=== PATIENT | female | born 2000 | race Hispanic/Latino ===

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

== ENCOUNTER 2021-03-05 11:56 | Emergency (ER) | payer SELFPAY ==
--- OUTSIDE RECORDS SUMMARY | 2021-03-05 11:59 | XMS REPORT | Continuity of Care Document ---
:2000 Author Organization [facility] t Address [address] [place] [address] Care Team Providers Name Role Phone Pcp, Patient Does Not Have A Primary Care Physician +[id number] Jacob WOLF Attending Clinician Alfonzo Espinosa DO Attending Clinician Doctor Unassigned, Name Attending Clinician Unavailable Advance Directives Directive Decision Effective Termination Comments Source Date Date Healthcare Agents on N/A Univ ersity FileNameRelationshipHealthcare [facility] Agent Medical RelationshipCommunicationKindred Hospital At [facility] Care [phone] (Home) [email or web address] Problems Condition Condition Condition Status Onset Resolution Last Treating Co mments Source Name Details Category Date Date Treatment Clinician Date BV BV Disease Active Univers (bacterial (bacterial 6-13 it y of vaginosis[place] [facility] Vaginal Vaginal Disease Active Univers bleeding bleeding 4-16 ity of during during 00:00: [place] , , 00 Me dical antepartum antepartum Br anch Abnormal Abnormal Disease Active Overview: Un sera maternal maternal 2-06 Formattin ity of glucose glucose 00:00: g of this [place] tolerance, tolerance, 00 note Me dical antepartum antepartum might be Branch different from the original. Passed 3hr Susceptibl Susceptibl Disease Active U nivers e to e to 2-06 ity of varicella varicella 00:00: Princess s (non-immun (non-immun 00 Me dical e), e), Branch currently currently Supervisio Supervisio Disease Active U nivers n of n of 2-05 ity of high-risk high-risk 00:00: Princess hernández [facility] [place] [facility] Allergies, Adverse Reactions, Alerts This patient has no known allergies or adverse reactions. Social History Social Habit Start Date Stop Date Quantity Comments Source Exposure to Not sure [facility] SARS-CoV-2 [facility] (event) Branch Tobacco use and 2019-09-09 2019-09-09 Never used Universit y of exposure 00:00:00 00:00:00 [facility] Alcohol intake 2019-09-09 2019-09-09 Current University 00:00:00 00:00:00 non-drinker of [facility] alcohol [place] (finding) Sex Assigned At 2000 2000 Universit y of 00:00:00 00:00:00 [facility] Smoking Status Start Date Stop Date Source Never smoker [facility] Medications Ordered Filled Start Stop Current Ordering Indication Dosage Frequency Signature Comments Components Source Medication Medication Date Date Medication? Clinician (SIG) Name Name NaCl 0.9% 2020- No 1000mL at 999 Uni vers (NS) bolus 02-26-07 mL/hr, ity of infusion 23:30: 00:05 1,000 mL, Reyes as 1,000 mL 00 :00 IV Medical Infusion, [place] ONCE, 1 dose, 02/26/21 at 1830, STAT PNV 67-iron Yes [id number] 1{each} Take 1 Univers ps-folate 2-05 Each by ity of no.1-dha 00:00: mouth [place] (VITAFOL 00 daily. Medical ULTRA) 29 Branch mg iron- 1 mg-200 mg Cap Immunizations Ordered Filled Immunization Date Status Comments Sourc e Immunization Name Name Influenza Virus 2017-07-28 Completed Universit y of Vaccine Quad IM 3+ 00:00:00 [facility] Vital Signs Vital Name Observation Time Observation Value Comments Source Systolic blood 2021-02-26 23:30:00 113 mm[Hg] Univer sity of pressure [facility] Diastolic blood 2021-02-26 23:30:00 66 mm[Hg] Unive rsity of [facility] Heart rate 2021-02-26 23:30:00 92 /min Universi ty [facility] Respiratory rate 2021-02-26 23:30:00 20 /[facility] saturation in 2021-02-26 23:30:00 98 /min [facility] Arterial blood by [facility] Pulse oximetry Branch Body temperature 2021-02-26 22:20:43 37.72 Lani [facility] Body height 2021-02-26 20:35:00 152.4 cm [facility] Body weight 2021-02-26 20:35:00 90.719 kg [facility] BMI 2021-02-26 20:35:00 39.06 kg/m2 [facility] Procedures Procedure Date / Time Performing Clinician Source Performed POCT TEST 2021-02-26 22:28:00 Jovanny James [facility] URINALYSIS 2021-02-26 22:18:00 Jovanny James [facility] URINE DRUG (IMMUNOASSAY) 2021-02-26 22:18:00 Jovanny James [facility] DRUG [facility] nc SCREEN W/O REFLEX TROPONIN I 2021-02-26 21:47:00 Jovanny James [facility] FREE T4 2021-02-26 21:47:00 Jovanny James [facility] THYROID STIMULATING 2021-02-26 21:47:00 Jovanny James [facility] HORMONE [facility] COMP. METABOLIC PANEL 2021-02-26 21:47:00 Jovanny James [facility] ([id number]) [facility] ETHANOL 2021-02-26 21:47:00 Jovanny James [facility] CBC WITH DIFF 2021-02-26 21:47:00 Jovanny James [facility] N-TERMINAL PRO-BNP 2021-02-26 21:47:00 Jovanny James [facility] COVID-19 (ID NOW RAPID 2021-02-26 21:47:00 Jovanny James [facility] TESTING) [facility] ASSIGNMENT OF BENEFITS 2021-02-26 21:38:43 Doctor Unassigned, No [facility] NOTICE OF PRIVACY 2021-02-26 19:54:42 Doctor Unassigned, No [facility] PRACTICES [facility] CONSENT/REFUSAL FOR 2021-02-26 19:54:14 Doctor Unassigned, No Un [facility] DIAGNOSIS AND TREATMENT Name Medical Branch Encounters Start End Encounter Admission Attending Care Care Encounter Source Date/Time Date/Time Type Type Clinicians Facility Department ID 2021-02-26 2021-02-26 Emergency [facility] [id number] Univers 15:37:00 19:09:00 Jovanny Castro [id number] i ty of [place] 4.2.7.2.686 [facility] [id number] [address] 2019-09-09 2019-09-09 Emergency [facility] [id number] 12:47:20 13:55:00 Lacey Castro [id number] [place] [id number] [place] [id number] [facility] 2019-09-09 2019-09-09 Orders Doctor MADDY [id number] 00:00:00 00:00:00 Only Unassigned, [place] 350.1.13.[address] [place] [facility] [id number] Results Test Description Test Time Test Comments Results Result Comments Source URINE DRUG (IMMUNOASSAY) - COMPREHENSIVE DRUG SCREEN W /O REFLEX 2021-02-26 23:54:50 Test Item Value Reference Range Interpretation Comme nts AMPHET (test code = 6353702060) Negative Negative XANDER U (test code = 7162130203) Negative Negative BENZO U (test code = 8224654591) Negative Negative Cocaine Metabolite (test code = Negative Negative 5256698049) METHADONE (test code = 8962276397) Negative Negative OPIATES (test code = 4678915353) Negative Negative PCP (test code = 6984391795) Negative Negative THC (test code = 7781927960) Negative Negative MOUNIKA (test code = MOUNIKA) Urine Drug Cutoff Ranges Cocaine: ? 150 ng/mLBenzodiazepines: ? ? 200 ng/mLMethadone: ? 300 ng/mLAmphetamine: ? 1,000 ng/mLOpiates: ? 300 ng/mLCannabinoids: ?50 ng/mLPhencyclidine: ? ? ? 25 ng/mLBarbiturates: ?200 ng/mL The results are to be used only for medical (i.e., treatment) purposes. Unconfirmed screening results must not be used for non-medical purposes (e.g., employment testing, legal testing). Lab Interpretation (test code = Normal 66198-3) [facility] WITH [id number] 23:41:50 Test Item Value Reference Range Interpretation Comments WBC (test code = See_Comment H [Automated 6690-2) message] The sy stem which generated this result transmitted reference range : 4.30 - 11.10 10*3/?L. The reference range was not used to interpret this result as normal/abnormal . RBC (test code = See_Comment [Automated 789-8) message] The sy stem which generated this result transmitted reference range : 3.93 - 5.25 10*6/?L. The reference range was not used to interpret this result as normal/abnormal . HGB (test code = 15.0 g/dL 11.6-15.0 718-7) HCT (test code = 45.8 % 35.7-45.2 H 4544-3) MCV (test code = 90.5 fL 80.6-95.5 787-2) MCH (test code = 29.6 pg 25.9-32.8 785-6) MCHC (test code = 32.8 g/dL 31.6-35.1 786-4) RDW-SD (test code = 40.1 fL 39.0-49.9 40180-0) RDW-CV (test code = 12.2 % 12.0-15.5 788-0) PLT (test code = See_Comment H [Automated 777-3) message] The sy stem which generated this result transmitted reference range : 166 - 358 10*3/ ?L. The reference r chang was not used to interpret this result as normal/abnormal . MPV (test code = 8.5 fL 9.5-12.9 L 28058-5) NRBC/100 WBC (test See_Comment [Automat ed code = 8739243830) message] The system which generated this result transmitted reference range : 0.0 - 10.0 /100 WBCs. The refer ence range was not u sed to interpret th is result as normal/abnormal . NRBC x10^3 (test code <0.01 See_Comment [Auto mated = 1449940889) message] The s ystem which generated this result transmitted reference range : 10*3/?L. The reference range was not used to interpret this result as normal/abnormal . GRAN MAT (NEUT) % 61.1 % (test code = 770-8) IMM GRAN % (test code 0.50 % = 5610635962) LYMPH % (test code = 34.0 % 736-9) MONO % (test code = 3.8 % 5905-5) EOS % (test code = 0.3 % 713-8) BASO % (test code = 0.3 % 706-2) GRAN MAT x10^3(ANC) 6.98 10*3/uL 1.88-7.09 (test code = 2738460863) IMM GRAN x10^3 (test 0.06 10*3/uL 0.00-0.06 code = 2896461062) LYMPH x10^3 (test code 3.89 10*3/uL 1.32-3.29 H = 731-0) MONO x10^3 (test code 0.44 10*3/uL 0.33-0.92 = 742-7) EOS x10^3 (test code = 0.03 10*3/uL 0.03-0.39 711-2) BASO x10^3 (test code 0.04 10*3/uL 0.01-0.07 = 704-7) MIRANDA (test code = Present See_Comment A [Auto mated 7797-4) message] The sy stem which generated this result transmitted reference range : (none). The reference range was not used to interpret this result as normal/abnormal . REACT LYMPHS (test Rare code = 7751016251) Lab Interpretation Abnormal (test code = 16740-0) [facility]21[facility]36 Test Item Value Reference Range Interpretation Comments APPEARANCE (test code = Hazy Clear A 6810312008) COLOR (test code = Yellow Yellow 0432065257) PH (test code = 4.8-8.0 8108617041) SP GRAVITY (test code = 1.003-1.030 4151196148) GLU U QUAL (test code = Normal Normal 5721927677) BLOOD (test code = 3+ Negative A 5128872805) KETONES (test code = 20 mg/dL Negative A 4660142914) PROTEIN (test code = Negative Negative 2887-8) UROBILIN (test code = Normal Normal 3681437467) BILIRUBIN (test code = Negative Negative 6833141297) NITRITE (test code = Negative Negative 2086224773) LEUK ERICA (test code = Negative Negative 6829715197) RBC/HPF (test code = See_Comment H [Autom ated message] 3514997142) The system [employer] generated this result transmitted ref erence range: 0 - 3 HP F. The reference range was not used to int erpret this result as normal/abnormal . WBC/HPF (test code = See_Comment H [Autom ated message] 3199831749) The system [employer] generated this result transmitted ref erence range: 0 - 5 HP F. The reference range was not used to int erpret this result as normal/abnormal . 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 The refe rence range was not u sed to interpret this result as normal/abnor mal. Lab Interpretation (test Normal code = 01234-7) [facility] [id number] 22:28:43 Test Item Value Reference Range Interpretation Comments FREE T4 (test code = See_Comment [Autom ated message] 8925369401) The system [employer] generated this result transmitted ref erence range: 0.78 - 2 .20 ng/dL:. The ref erence range was not u sed to interpret this result as normal/abnor mal. Lab Interpretation (test Normal code = 49107-3) [facility] [id number] 22:28:00 Test Item Value Reference Range Interpretation Comments POCT PREG (test code = 1605) negative On board controls acceptable with present C Line (test code = 3574) POCT PREG LOT # (test code = 3575) [id number] POCT PREG TEST DATE (test code = 3576) Lab Interpretation (test code = Normal 38741-0) [facility] CenterTROP[facility]IN [id number] 22:23:40 Test Item Value Reference Interpretation Comments Range TROPONIN I (test <0.012 See_Comment [Automated code = 1311705187) message] The system which generated this result transmitted reference range : <=0.034 ng/mL. The reference range was not used to interpret this result as normal/abnormal . MOUNIKA (test code = Reference (Normal) MOUNIKA) Range (defined by the 99th percentile reference limit): <= 0.034 ng/mL Note: Cardiac troponin begins to rise 3-4 hours after the onset of ischemia. Repeat in 4-6 hours if the sample was drawn within 3-4 hours of the onset of the symptom and found normal. Diagnosis of myocardial injury is made with acute changes in cTn concentrations with at least one serial sample above the 99th percentile upper reference limit (URL), taken together with the patient's clinical presentation. Biotin has been reported to cause a negative bias, interpret results relative to patient's use of biotin. Lab Interpretation Normal (test code = 03600-8) [facility]-TERMINAL [id number] 22:20:42 Test Item Value Reference Range Interpretation Comments NT-proBNP (test code 71 pg/mL See_Comment [Autom ated = 2786145118) message] The system which generated this result transmitted reference range : <=125. The reference range was not used to interpret this result as normal/abnormal . MOUNIKA (test code = MOUNIKA) Biotin has been reported to cause a negative bias, interpret results relative to patient's use of biotin. Lab Interpretation Normal (test code = 11973-8) [facility]. METABOLIC PANEL (24609)2021-02-26 22:20:16 Test Item Value Reference Range Interpretation Comments NA (test code = 139 mmol/L 135-145 1516273373) K (test code = 3.8 mmol/L 3.5-5.0 6742762588) CL (test code = 102 mmol/L 98-108 5852223782) CO2 TOTAL (test code = 28 mmol/L 23-31 5873366063) AGAP (test code = 2-16 3489150663) BUN (test code = 11 mg/dL 7-23 3491830846) GLUCOSE (test code = 93 mg/dL 70-110 7791401164) CREATININE (test code = 0.63 mg/dL 0.50-1.04 6284455047) TOTAL BILI (test code = 0.5 mg/dL 0.1-1.6 8295217330) CALCIUM (test code = 9.6 mg/dL 8.6-10.6 8575900821) T PROTEIN (test code = 8.8 g/dL 6.3-8.2 H 6781193527) ALBUMIN (test code = 4.7 g/dL 3.5-5.0 8265126024) ALK PHOS (test code = 84 U/L 34-122 9883264169) ALTv (test code = 20 U/L 5-35 1742-6) AST(SGOT) (test code = 26 U/L 13-40 6410968939) eGFR (test code = mL/min/1.73m2 3431170418) MOUNIKA (test code = MOUNIKA) Association of Glomerular Filtration Rate (GFR) and Staging of Kidney Disease* + --+ --+ ------+| GFR (mL/min/1.73 m2) ?| With Kidney Damage ?| ?Without Kidney Damage+ --------+ --------+ +| ?>90 ?| ?Stage one ?| ? Normal ?+ ---+ ---+ -------+| ?60-89 ?| ?Stage two ?| ? Decreased GFR ? + --+ --+ ------+| ?30-59 ?| ?Stage three ?| ? Stage three ? + --+ --+ ------+| ?15-29 ?| ?Stage four ? | ? Stage four ?+ ---+ ---+ -------+| ?<15 (or dialysis) ? ?| ?Stage five ? | ? Stage five ?+ ---+ ---+ -------+ *Each stage assumes the associated GFR level has been in effect for at least three months. ?Stages 1 to 5, with or without kidney disease, indicate chronic kidney disease. Notes: Determination of stages one and two (with eGFR >59mL/min/1.73 m2) requires estimation of kidney damage for at least three months as defined by structural or functional abnormalities of the kidney, manifested by either:Pathological abnormalities or Markers of kidney damage (including abnormalities in the composition of the blood or urine or abnormalities in imaging tests). Lab Interpretation Abnormal (test code = 49114-1) [facility] (ID NOW RAPID TESTING)2021-02-26 22:14:21 Test Item Value Reference Range Interpretation Comments SARS-CoV-2 Rapid ID NOW Not Detected Not Detected (test code = 15610-3) MOUNIKA (test code = MOUNIKA) ID NOW COVID-19 Assay is an isothermal nucleic acid amplification test intended for the qualitative detection of nucleic acid from SARS-CoV-2 viral RNA in nasopharyngeal (CHIEF DEVELOPMENT OFFICER) specimens. It is used under Emergency Use Authorization (EUA) by FDA. The limit of detection (LOD) of the assay is 125 Genome Equivalents/mL. A positive result is indicative of the presence of SARS-CoV-2 RNA. ?Clinical correlation with patient history and other diagnostic information is necessary to determine patient infection status. A negative (Not Detected) result does not preclude SARS-CoV-2 infection. In patients with clinical symptoms and other tests that are consistent with SARS-CoV-2 infection, negative results should be treated as presumptive negative and a new specimen should be tested with alternative PCR molecular test. Invalid: Please collect a new specimen for repeat patient testing if clinically indicated. Lab Interpretation Normal (test code = 89415-7) [facility]"
[2021-03-05] MEDS ORDERED: IBUPROFEN 400 MG TAB ONE (13:13)
--- NOTE | 2021-03-05 13:19 | RAD REPORT ---
EXAM DESCRIPTION: RAD - Chest Pa And Lat (2 Views) - 03/05/2021 12:56 pm CLINICAL HISTORY: CHEST PAIN COMPARISON: January 2012 TECHNIQUE: Frontal and lateral views of the chest were obtained. FINDINGS: The lungs are significantly underinflated compared to the prior study. This accentuates th e baseline interstitial pattern. No peripheral mass or consolidation. True, significant failure or vo lume overload are doubtful. Accentuated vasculature and lung markings can be explained by the low luigi g volumes and overlying breast tissue density. Heart size is normal and central vasculature is within normal limits. No pleural effusion or pneu mothorax seen. No acute bony finding noted. No aortic abnormality. IMPRESSION: No acute cardiopulmonary process.
--- NOTE | 2021-03-05 14:10 | EDPHYS ---
Physician Documentation [facility] Name: Taylor Monterroso Age: 21 yrs Sex: Female : 2000 Arrival Date: 03/05/2021 Time: 11:56 Bed 11 Private MD: ED Physician Sergey Addison HPI: 03/05 13:01 This 21 yrs old Female presents to ER via Ambulatory with complaints of Chest jr8 Pain. 13:01 Onset: The symptoms/episode began/occurred gradually, 10 day(s) ago. Associated signs jr8 and symptoms: The patient has no apparent associated signs or symptoms. Modifying factors: The patient symptoms are alleviated by nothing, the patient symptoms are aggravated by movement. The patient has not experienced similar symptoms in the past. The patient has been recently seen by a physician:. This is a 21-year-old female who presented to the emergency room for continued chest pain for the past 10 days. Stated that she was seen in [place] without acute findings. Patient states that the chest pain is between a sharp and pressure-like sensation to the left upper chest. Worse with palpation and movement. Denies trauma. Denies radiation of pain. Has had some mild nausea. Denies any other symptoms at this time.. [employer] LE[employer]ER: 12:31 LMP N/A - control method kg Historical: - Allergies: 12:31 No Known Allergies; kg - Home Meds: 12:31 None [Active]; kg - PMHx: 12:31 None; kg - PSHx: 12:31 section; kg - Immunization history:: Adult Immunizations not up to date, Client reports having NOT received the Covid vaccine. - Social history:: Smoking status: Patient denies any tobacco usage or history of. ROS: 13:01 Constitutional: Negative for fever, chills, and weight loss, Eyes: Negative for injury, jr8 pain, redness, and discharge, ENT: Negative for injury, pain, and discharge, Neck: Negative for injury, pain, and swelling, Respiratory: Negative for shortness of breath, cough, wheezing, and pleuritic chest pain, Back: Negative for injury and pain, MS/Extremity: Negative for injury and deformity, Skin: Negative for injury, rash, and discoloration, Neuro: Negative for headache, weakness, numbness, tingling, and seizure. 13:01 Cardiovascular: Positive for chest pain, Negative for edema, orthopnea, palpitations, paroxysmal nocturnal dyspnea. 13:01 Abdomen/GI: Positive for nausea, Negative for abdominal pain, vomiting, diarrhea. Exam: 13:01 Constitutional: This is a well developed, well nourished patient who is awake, alert, jr8 and in no acute distress. ENT: Nares patent. No nasal discharge, no septal abnormalities noted. Tympanic membranes are normal and external auditory canals are clear. Oropharynx with no redness, swelling, or masses, exudates, or evidence of obstruction, uvula midline. Mucous membranes moist. Neck: Trachea midline, no thyromegaly or masses palpated, and no cervical lymphadenopathy. Supple, full range of motion without nuchal rigidity, or vertebral point tenderness. No Meningismus. Cardiovascular: Regular rate and rhythm with a normal S1 and S2. No gallops, murmurs, or rubs. Normal PMI, no JVD. No pulse deficits. Respiratory: Lungs have equal breath sounds bilaterally, clear to auscultation and percussion. No rales, rhonchi or wheezes noted. No increased work of breathing, no retractions or nasal flaring. Abdomen/GI: Soft, non-tender, with normal bowel sounds. No distension or tympany. No guarding or rebound. No evidence of tenderness throughout. Back: No spinal tenderness. No costovertebral tenderness. Full range of motion. Skin: Warm, dry with normal turgor. Normal color with no rashes, no lesions, and no evidence of cellulitis. MS/ Extremity: Pulses equal, no cyanosis. Neurovascular intact. Full, normal range of motion. Neuro: Awake and alert, GCS 15, oriented to person, place, time, and situation. Cranial nerves II-XII grossly intact. Motor strength 5/5 in all extremities. Sensory grossly intact. 13:01 Chest/axilla: Inspection: normal, Palpation: tenderness, that is moderate, of the anterior aspect of left upper chest, that totally reproduces the patient's complaints, Axilla: are normal, Breasts: are normal, no tenderness to palpation. Vital Signs: 12:29 BP 117 / 73; Pulse 89; Resp 18; Temp 99.6(O); Pulse Ox 99% on R/A; Weight 90.72 kg (R); kg Height 4 ft. 11 in. (149.86 cm) (R); Pain 6/10; 12:29 Body Mass Index 40.39 (90.72 kg, 149.86 cm) kg MDM: 12:37 Patient medically screened. jr8 14:09 Differential diagnosis: Costochondritis, and normal EKG, ischemic chest pain, jr8 pericarditis, GERD, intercostal pain, muscle strain, Covid, pneumonia. Data reviewed: vital signs, nurses notes, lab test result(s), EKG, radiologic studies, plain films. Data interpreted: Pulse oximetry: on room air is 99 %. Interpretation: normal. Counseling: I had a detailed discussion with the patient and/or guardian regarding: the historical points, exam findings, and any diagnostic results supporting the discharge/admit diagnosis, lab results, radiology results, the need for outpatient follow up, a family practitioner, to return to the emergency department if symptoms worsen or persist or if there are any questions or concerns that arise at home. Response to treatment: the patient's symptoms have markedly improved after treatment. 03/05 14:07 Order name: SARS-COV-2 RT PCR; Complete Time: 14:08 EDMS 03/05 12:34 Order name: EKG - Nurse/Tech; Complete Time: 12:46 kg 03/05 12:38 Order name: XRAY Chest Pa And Lat (2 Views); Complete Time: 13:21 jr8 Administered Medications: 12:46 Drug: Ibuprofen 800 mg Route: PO; kg Disposition: 15:21 Co-signature as Attending Physician, Sergey Addison MD I agree with the assessment and rn plan of care. Attestation: The patient's history, exam findings, diagnostics, and a summary of any interventions or procedures was reviewed in detail with Bravo JACQUES. Disposition Summary: 03/05/21 14:09 Discharge Ordered Location: Home jr8 Problem: new jr8 Symptoms: have improved jr8 Condition: Stable jr8 Diagnosis - Costochondritis jr8 Followup: jr8 - With: Private Physician - When: 2 - 3 days - Reason: Recheck today's complaints, Continuance of care, Re-evaluation by your physician Discharge Instructions: - Discharge Summary Sheet jr8 - Costochondritis jr8 Forms: - Medication Reconciliation Form jr8 - Thank You Letter jr8 - Antibiotic Education jr8 - Prescription Opioid Use jr8 Prescriptions: - Ibuprofen 800 mg Oral Tablet - take 1 tablet by ORAL route every 12 hours As needed take with food; 20 tablet; jr8 Refills: 0, Product Selection Permitted Signatures: Dispatcher [employer] EDMS Sergey Addison MD MD rn Roszak, Josh, PA PA jr8 Velma Sherwood RN RN kg Corrections: (The following items were deleted from the chart) 12:32 12:31 PSHx: None; kg kg 13:02 12:35 CORONAVIRUS+MR.LAB.BRZ ordered. EDWY EDMS 13:03 13:01 Chest/axilla: Inspection: normal, Palpation: tenderness, that is moderate, of the jr8 anterior aspect of left upper chest, Axilla: are normal, Breasts: are normal, no tenderness to palpation, jr8
--- NOTE | 2021-03-05 14:10 | ER ---
Nurse's Notes [facility] Name: Taylor Monterroso Age: 21 yrs Sex: Female : 2000 Arrival Date: 03/05/2021 Time: 11:56 Bed 11 Private MD: Diagnosis: Costochondritis Presentation: 03/05 12:29 Chief complaint: Patient states: Chest pain x 10 days and fatigue. Pt stated that she kg went to [facility] 02/26 and was checked out and swabbed and told nothing was wrong. Coronavirus screen: Vaccine status: Patient reports being unvaccinated. fatigue, muscle pain, Client presents with at least one sign or symptom that may indicate coronavirus-19. Standard/surgical mask placed on the client. Provider contacted for isolation considerations. The client reports previous COVID testing was negative. Date of collection: February 26, 2021. Ebola Screen: Patient negative for fever greater than or equal to 101.5 degrees Fahrenheit, and additional compatible Ebola Virus Disease symptoms Patient denies exposure to infectious person. Patient denies travel to an Ebola-affected area in the 21 days before illness onset. Initial Sepsis Screen: Does the patient meet any 2 criteria? No. Patient's initial sepsis screen is negative. Does the patient have a suspected source of infection? No. Patient's initial sepsis screen is negative. Risk Assessment: Do you want to hurt yourself or someone else? Patient reports no desire to harm self or others. Onset of symptoms was February 23, 2021. 12:29 Method Of Arrival: Ambulatory kg 12:29 Acuity: RITA 4 kg Triage Assessment: 12:31 General: Appears in no apparent distress. Behavior is calm, cooperative, appropriate kg for age, quiet. Pain: Complains of pain in chest Pain currently is 6 out of 10 on a pain scale. at worst was 9 out of 10 on a pain scale. Quality of pain is described as heavy, tingling. Cardiovascular: Reports chest pain, fatigue. PCU RN: 12:31 LMP N/A - control method kg Historical: - Allergies: 12:31 No Known Allergies; kg - Home Meds: 12:31 None [Active]; kg - PMHx: 12:31 None; kg - PSHx: 12:31 section; kg - Immunization history:: Adult Immunizations not up to date, Client reports having NOT received the Covid vaccine. - Social history:: Smoking status: Patient denies any tobacco usage or history of. Screenin:33 Abuse screen: Denies threats or abuse. Denies injuries from another. Nutritional kg screening: No deficits noted. Tuberculosis screening: No symptoms or risk factors identified. Fall Risk None identified. Vital Signs: 12:29 BP 117 / 73; Pulse 89; Resp 18; Temp 99.6(O); Pulse Ox 99% on R/A; Weight 90.72 kg (R); kg Height 4 ft. 11 in. (149.86 cm) (R); Pain 6/10; 12:29 Body Mass Index 40.39 (90.72 kg, 149.86 cm) kg ED Course: 11:56 Patient arrived in ED. as 12:07 Bravo Boles PA is PHCP. jr8 12:07 Sergey Addison MD is Attending Physician. jr8 12:31 Triage completed. kg 12:31 Arm band placed on right wrist. kg 12:33 Patient has correct armband on for positive identification. kg 12:33 Patient maintains SpO2 saturation greater than 95% on room air. kg 12:55 XRAY Chest Pa And Lat (2 Views) In Process Unspecified. EDMS 14:44 No provider procedures requiring assistance completed. Patient did not have IV access ch5 during this emergency room visit. Administered Medications: 12:46 Drug: Ibuprofen 800 mg Route: PO; kg Outcome: 14:09 Discharge ordered by . jr8 14:44 Discharged to home ambulatory. ch5 14:44 Condition: stable 14:44 Discharge instructions given to patient, Prescriptions given X 1. 14:44 Patient left the ED. ch5 Signatures: Dispatcher [employer] EDMS Griselda Espinal as Bravo Boles PA PA jr8 Velma Sherwood RN RN kg Thong Hall RN RN ch5 Corrections: (The following items were deleted from the chart) 12:32 12:31 PSHx: None; kg kg 13:02 12:46 CORONAVIRUS+ drawn and sent. kg EDMS
[2021-03-05 15:00] VITALS: BP 117/73; TEMP 99.6; O2SAT 99
--- NOTE | 2021-03-06 10:07 | EKG ---
Test Date: 2021-03-05 Test Time: 12:43:51 Car Wash Attendant Automatic: MAXIMILIANO MEASUREMENT RESULTS: Intervals: Rate: 88 UT: 134 QRSD: 92 QT: 356 QTc: 430 [place]: P: 65 UT: 134 QRS: 81 T: 63 INTERPRETIVE STATEMENTS: Normal sinus rhythm Normal ECG No previous ECG available for comparison Electronically Signed On 03-06-21 10:04:49 CDT by Víctor Prajapati
== END 2021-03-05 14:44 | disposition home or self-care (01) ==
LOC: ER 11:56
DX: M94.0 Chondrocostal junction syndrome [Tietze] (principal); Z20.822 Contact with and (suspected) exposure to COVID-19
CPT/HCPCS: 71046; 93005; 99284; U0003

== ENCOUNTER 2022-01-12 19:22 | Emergency (ER) | payer SELFPAY ==
--- OUTSIDE RECORDS SUMMARY | 2022-01-12 19:26 | XMS REPORT | Continuity of Care Document ---
:2000 Author Organization [facility] t Address [address] [place] [address] Dr. [address] [place] [address] Care Team Providers Name Role Phone Pcp, Patient Does Not Have A Primary Care Physician [id number] Jacob WOLF Attending Clinician Lab, Fam Pob I Attending Clinician Unavailable Kassi GALLO Attending Clinician Alfonzo Espinosa DO Attending Clinician Doctor Unassigned, Name Attending Clinician Unavailable Payers Payer Name Policy Type Policy Number Effective Date Expiration Date S [facility] [id number] 2011 00:00:00 Problems Condition Condition Condition Status Onset Resolution Last Treating Co mments Source Name Details Category Date Date Treatment Clinician Date BV BV Disease Active Univers (bacterial (bacterial 6-13 it y of vaginosis[place] [facility] Vaginal Vaginal Disease Active Univers bleeding bleeding 4-16 ity of during during 00:00: [place] , , 00 Me dical antepartum antepartum Br anch Abnormal Abnormal Disease Active Overview: Un sera maternal maternal 2-06 Formattin ity of glucose glucose 00:00: g of this [place] tolerance, tolerance, 00 note Me dical antepartum antepartum might be Branch different from the original. Passed 3hr Susceptibl Susceptibl Disease Active U nivers e to e to 2-06 ity of varicella [place] (non-immun (non-immun 00 Me dical e), e), Branch currently currently Supervisio Supervisio Disease Active U nivers n of n of 2-05 it[place] of high-risk high[place] 00 [facility] Allergies, Adverse Reactions, Alerts Allergy Allergy Status Severity Reaction(s) Onset Inactive Treating Comm ents Source Name Type Date Date Clinician NO KNOWN Drug Active Univers ALLERGIE Class ity of S [facility] Social History Social Habit Start Date Stop Date Quantity Comments Source Exposure to Not sure [facility]-CoV-2 [facility] (event) [place] Tobacco use and 2019-09-09 2019-09-09 Never used Universit y of exposure 00:00:00 00:00:00 [facility] Alcohol intake 2019-09-09 2019-09-09 Current University 00:00:00 00:00:00 non-drinker of [facility] alcohol [place] (finding) Sex Assigned At 2000 2000 Universit y of 00:00:00 00:00:00 [facility] Smoking Status Start Date Stop Date Source Never smoker [facility] Medications Ordered Filled Start Stop Current Ordering Indication Dosage Frequency Signature Comments Components Source Medication Medication Date Date Medication? Clinician (SIG) Name Name NaCl 0.9% 2020- No 1000mL at 999 Uni vers (NS) bolus 02-26 09-07 mL/hr, ity of infusion 23:30: 00:05 1,000 mL, [place] as 1,000 mL 00 :00 IV Medical Infusion, [place] ONCE, 1 dose, 02/26/21 at 1830, STAT NaCl 0.9% 2020- No 1000mL at 999 Uni vers (NS) bolus 02-26 09-07 mL/hr, ity of infusion 23:30: 00:05 1,000 mL, [place] as 1,000 mL 00 :00 IV Medical Infusion, [place] ONCE, 1 dose, 02/26/21 at 1830, STAT maalox:diph 2019- No 15mL 15 mL, Uni vers enhydrAMINE 09-08 Oral, ity of :lidocaine 18:00: 18:00 ONCE, 1 [place] as 2 % viscous 00 :00 dose, [place] Med ical 1:1:1 09/09/19 at [place] (FIRST-MOUT 1300, JATINDER HWASH BLM) oral suspension 15 mL ibuprofen 2019- No 600mg 600 mg, Uni vers (IBU) 3-19 03-19 Oral, ity of tablet 600 18:00: 18:11 ONCE, 1 [place] as mg 00 :00 dose, [facility] 09/09/19 at Branch 1300, JATINDER PNV 67-iron 2017-0 Yes [id number] 1{each} Take 1 Univers ps-folate 2-05 Each by ity of no.1-dha 00:00: mouth [place] (VITAFOL 00 daily. Medical ULTRA) 29 Branch mg iron- 1 mg-200 mg Cap PNV 67-iron 0 Yes [id number] 1{each} Take 1 Univers ps-folate 2-05 Each by ity of no.1-dha 00:00: mouth [place] (VITAFOL 00 daily. Medical ULTRA) 29 Branch mg iron- 1 mg-200 mg Cap PNV 67-iron 2017-0 Yes [id number] 1{each} Take 1 Univers ps-folate 2-05 Each by ity of no.1-dha 00:00: mouth [place] (VITAFOL 00 daily. Medical ULTRA) 29 Branch mg iron- 1 mg-200 mg Cap PNV 67-iron 0 Yes [id number] 1{each} Take 1 Univers ps-folate 2-05 Each by ity of no.1-dha 00:00: mouth [place] (VITAFOL 00 daily. Medical ULTRA) 29 Branch mg iron- 1 mg-200 mg Cap PNV 67-iron 0 Yes [id number] 1{each} Take 1 Univers ps-folate 2-05 Each by ity of no.1-dha 00:00: mouth [place] (VITAFOL 00 daily. Medical ULTRA) 29 Branch mg iron- 1 mg-200 mg Cap PNV 67-iron 0 Yes [id number] 1{each} Take 1 Univers ps-folate 2-05 Each by ity of no.1-dha 00:00: mouth [place] (VITAFOL 00 daily. Medical ULTRA) 29 Branch mg iron- 1 mg-200 mg Cap Immunizations Ordered Filled Immunization Date Status Comments [facility] e Immunization Name Name Influenza Virus 2017-07-28 Completed Universit y of Vaccine Quad IM 3+ 00:00:00 [facility] Influenza Virus 2017-07-28 Completed Universit y of Vaccine Quad IM 3+ 00:00:00 [facility] Influenza Virus 2017-07-28 Completed Universit y of Vaccine Quad IM 3+ 00:00:00 [facility] Influenza Virus 2017-07-28 Completed Universit y of Vaccine Quad IM 3+ 00:00:00 [facility] Branch Influenza Virus 2017-07-28 Completed Universit y of Vaccine Quad IM 3+ 00:00:00 [facility] Branch Influenza Virus 2017-07-28 Completed Universit y of Vaccine Quad IM 3+ 00:00:00 [facility] Vital Signs Vital Name Observation Time Observation Value Comments Source Systolic blood 2021-02-26 23:30:00 113 mm[Hg] Univer sity of pressure [facility] Branch Diastolic blood 2021-02-26 23:30:00 66 mm[Hg] Unive rsity of pressure [facility] Branch Heart rate 2021-02-26 23:30:00 92 /min Universi ty of [facility] Respiratory rate 2021-02-26 23:30:00 20 /min Univ ersity of [facility] Oxygen saturation in 2021-02-26 23:30:00 98 /min University of Arterial blood by [place] [facility] tia Pulse oximetry Branch Body temperature 2021-02-26 22:20:43 37.72 Lani Univ ersity of [facility] Branch Systolic blood 2021-02-26 20:35:00 125 mm[Hg] Univer sity of pressure [facility] Branch Diastolic blood 2021-02-26 20:35:00 72 mm[Hg] Unive rsity of pressure [facility] Heart rate 2021-02-26 20:35:00 83 /min Universi ty of [facility] Body temperature 2021-02-26 20:35:00 37.67 Lani Univ ersity of [facility] Branch Respiratory rate 2021-02-26 20:35:00 16 /min Univ ersity of [facility] Branch Oxygen saturation in 2021-02-26 20:35:00 97 /min University of Arterial blood by [place] [facility] tia Pulse oximetry Branch Body height 2021-02-26 20:35:00 152.4 cm Universi ty of [facility] Body weight 2021-02-26 20:35:00 90.719 kg Universi ty of [facility] BMI 2021-02-26 20:35:00 39.06 kg/m2 Universi ty of [facility] Systolic blood 2019-09-09 18:27:36 123 mm[Hg] Univer sity of pressure [facility] Branch Diastolic blood 2019-09-09 18:27:36 75 mm[Hg] Unive rsity of pressure [place] [facility] Heart rate 2019-09-09 18:27:36 100 /min Universi ty of [place] [facility] Respiratory rate 2019-09-09 18:27:36 17 /min Univ ersity of [place] [facility] Body temperature 2019-09-09 17:45:00 37.5 Lani Univ ersity of [place] [facility] Body height 2019-09-09 17:45:00 134.6 cm Universi ty of [place] [facility] Body weight 2019-09-09 17:45:00 91.173 kg Universi ty of [place] [facility] BMI 2019-09-09 17:45:00 50.31 kg/m2 Universi ty of [facility] Oxygen saturation in 2019-09-09 17:45:00 97 /min University of Arterial blood by [facility] Pulse oximetry Branch Systolic blood 2019-09-09 18:27:36 123 mm[Hg] Univer sity of pressure [place] [facility] [place] Diastolic blood 2019-09-09 18:27:36 75 mm[Hg] Unive rsity of pressure [place] [facility] [place] Heart rate 2019-09-09 18:27:36 100 /min Universi ty of [place] [facility] Respiratory rate 2019-09-09 18:27:36 17 /min Univ ersity of [place] [facility] [place] Body temperature 2019-09-09 17:45:00 37.5 Lani Univ ersity of [place] [facility] [place] Body height 2019-09-09 17:45:00 134.6 cm Universi ty of [place] [facility] [place] Body weight 2019-09-09 17:45:00 91.173 kg Universi ty of [place] [facility] [place] BMI 2019-09-09 17:45:00 50.31 kg/m2 Universi ty of [place] [facility] [place] Oxygen saturation in 2019-09-09 17:45:00 97 /min University of Arterial blood by [facility] Pulse oximetry Branch Procedures Procedure Date / Time Performing Clinician Source Performed POCT TEST 2021-02-26 22:28:00 Jovanny James [facility] URINALYSIS 2021-02-26 22:18:00 Jovanny James o f [facility] URINE DRUG (IMMUNOASSAY) 2021-02-26 22:18:00 Jovanny James [facility] SCREEN W/O REFLEX FREE T4 2021-02-26 21:47:00 Jovanny James [place] o f [facility] THYROID STIMULATING 2021-02-26 21:47:00 Jovanny James [facility] ty of [place] HORMONE [facility] Branch COMP. METABOLIC PANEL 2021-02-26 21:47:00 Jovanny James [facility] ([id number]) Medical Branch ETHANOL 2021-02-26 21:47:00 Jovanny James [facility] CBC WITH DIFF 2021-02-26 21:47:00 Jovanny James [facility] N-TERMINAL PRO-BNP 2021-02-26 21:47:00 Jovanny James [facility] y [facility] COVID-19 (ID NOW RAPID 2021-02-26 21:47:00 Jovanny James [facility] TESTING) Medical [place] TROPONIN I 2021-02-26 21:47:00 Jovanny James [facility] ASSIGNMENT OF BENEFITS 2021-02-26 21:38:43 Doctor Unassigned, No [facility] NOTICE OF PRIVACY 2021-02-26 19:54:42 Doctor Unassigned, No [facility] PRACTICES Name [facility] CONSENT/REFUSAL FOR 2021-02-26 19:54:14 Doctor Unassigned, [facility] CONSENT/REFUSAL FOR 2019-09-09 17:31:33 Doctor Unassigned, No [facility] Encounters Start End Encounter Admission Attending Care Care Encounter Source Date/Time Date/Time Type Type Clinicians Facility Department ID 2021-04-23 Emergency [facility] [id number] Univers 20:39:49 ity of [facility] 2021-04-19 Emergency [facility] [id number] [facility] 2021-02-26 2021-02-26 Emergency Jacob [facility] [id number] Univers 15:37:00 19:09:00 Jovanny Castro 350.1.13.10 i ty [place] 4.2.[address] [facility] [id number] [facility] 084 Branch 2020-01-03 2020-01-03 Laboratory Lab, Adc Fam Pob I [facility] 1.2. [id number] Univers 09:47:45 09:58:36 Only Katheryn Solitario Shannon [id number] ity of [place] 4.2.7.2.686 [facility] [id number] Pa dical formerly [facility] [address] [place] [address] 2020-01-03 2020-01-03 Outpatient R [facility] [id number] Univers 09:40:00 09:40:00 [id number] ity [facility] 2020-01-03 2020-01-03 Outpatient R [facility] [id number] Univers 09:40:00 09:40:00 ity [facility] 2019-09-09 2019-09-09 Emergency [facility] [id number] [facility] 12:47:20 13:55:00 Lacey Castro [id number] ity [facility] 4.2.7.[address] [facility] [id number] [address] 2019-09-09 2019-09-09 Emergency [facility] [id number] 12:47:20 13:55:00 Lacey Castro 350.1.13.10 [place] 4.2.7.2.686 [place] [id number] [facility] 2019-09-09 2019-09-09 Orders Doctor CASTAÑEDA [id number] Univers 00:00:00 00:00:00 Only Unassigned, [place] 350.1.13.10 ity of [place] [facility] 4.2.7.2.686 Reyes as [id number] [facility] 009 [place] 2019-09-09 2019-09-09 Orders Doctor CASTAÑEDA [id number] 00:00:00 00:00:00 Only Unassigned, [place] 350.1.13.10 [place] [facility] 4.2.7.2.686 [id number] Results Test Description Test Time Test Comments Results Result Comments Source URINE DRUG (IMMUNOASSAY) - COMPREHENSIVE DRUG SCREEN W /O REFLEX 2021-02-26 23:54:50 Test Item Value Reference Range Interpretation Comme nts AMPHET (test code = 8306287393) Negative Negative XANDER U (test code = 4806582598) Negative Negative BENZO U (test code = 3091449297) Negative Negative Cocaine Metabolite (test code = Negative Negative 0009787750) METHADONE (test code = 4923958856) Negative Negative OPIATES (test code = 4703330882) Negative Negative PCP (test code = 1188881288) Negative Negative THC (test code = 3656955799) Negative Negative MOUNIKA (test code = MOUNIKA) [...] testing). Lab Interpretation (test code = Normal 02835-3) [facility] - COMPREHENSIVE DRUG SCREEN W/O [id number] 23:54:50 Test Item Value Reference Range Interpretation Comments AMPHET (test code = Negative Negative 5311330259) XANDER U (test code = Negative Negative 6919556019) BENZO U (test code = Negative Negative 1611404862) Cocaine Metabolite (test Negative Negative code = 0395577639) METHADONE (test code = Negative Negative 7598452716) OPIATES (test code = Negative Negative 5187205879) PCP (test code = Negative Negative 1785791104) THC (test code = Negative Negative 4143681660) MOUNIKA (test code = MOUNIKA) Urine Drug [...] employment testing, legal testing). Lab Interpretation (test Normal code = 38214-1) [facility] WITH [id number] 23:41:50 Test Item Value Reference Range Interpretation [...] RDW-SD (test code = 40.1 fL 39.0-49.9 31211-9) RDW-CV (test code = 12.2 % 12.0-15.5 788-0) PLT (test code = See_Comment H [Automated 777-3) message] The sy stem which generated this result transmitted reference range : 166 - 358 10*3/ ?L. The reference r chang was not used to interpret this result as normal/abnormal . MPV (test code = 8.5 fL 9.5-12.9 L 31317-8) NRBC/100 WBC (test See_Comment [Automat ed code = 9475701280) message] The system which generated this result transmitted reference range : 0.0 - 10.0 /100 WBCs. The refer ence range was not u sed to interpret th is result as normal/abnormal . NRBC x10^3 (test code <0.01 See_Comment [Auto mated = 9484784207) message] The s ystem which generated this result transmitted reference range : 10*3/?L. The reference range was not used to interpret this result as normal/abnormal . GRAN MAT (NEUT) % 61.1 % (test code = 770-8) IMM GRAN % (test code 0.50 % = 0927232809) LYMPH % (test code = 34.0 % 736-9) MONO % (test code = 3.8 % 5905-5) EOS % (test code = 0.3 % 713-8) BASO % (test code = 0.3 % 706-2) GRAN MAT x10^3(ANC) 6.98 10*3/uL 1.88-7.09 (test code = 4253162459) IMM GRAN x10^3 (test 0.06 10*3/uL 0.00-0.06 code = 6962170024) LYMPH x10^3 (test code 3.89 10*3/uL 1.32-3.29 H = 731-0) MONO x10^3 (test code 0.44 10*3/uL 0.33-0.92 = 742-7) EOS x10^3 (test code = 0.03 10*3/uL 0.03-0.39 711-2) BASO x10^3 (test code 0.04 10*3/uL 0.01-0.07 = 704-7) ROULEAUX (test code = Present See_Comment A [Auto mated 3297-4) message] The sy stem which generated this result transmitted reference range : (none). The reference range was not used to interpret this result as normal/abnormal . REACT LYMPHS (test Rare code = 3707878344) Lab Interpretation Abnormal (test code = 08304-4) [facility] WITH [id number] 23:41:50 Test Item Value Reference Range Interpretation Comments WBC (test code = See_Comment H [Automated 0743-2) message] The sy stem which generated this [...] RDW-SD (test code = 40.1 fL 39.0-49.9 92670-0) RDW-CV (test code = 12.2 % 12.0-15.5 788-0) PLT (test code = See_Comment H [Automated 777-3) message] The sy stem which generated this result transmitted reference range : 166 - 358 10*3/ ?L. The reference r chang was not used to interpret this result as normal/abnormal . MPV (test code = 8.5 fL 9.5-12.9 L 27212-1) NRBC/100 WBC (test See_Comment [Automat ed code = 5474809934) message] The system which generated this result transmitted reference range : 0.0 - 10.0 /100 WBCs. The refer ence range was not u sed to interpret th is result as normal/abnormal . NRBC x10^3 (test code <0.01 See_Comment [Auto mated = 9795595164) message] The s ystem which generated this result transmitted reference range : 10*3/?L. The reference range was not used to interpret this result as normal/abnormal . GRAN MAT (NEUT) % 61.1 % (test code = 770-8) IMM GRAN % (test code 0.50 % = 2619668682) LYMPH % (test code = 34.0 % 736-9) MONO % (test code = 3.8 % 5905-5) EOS % (test code = 0.3 % 713-8) BASO % (test code = 0.3 % 706-2) GRAN MAT x10^3(ANC) 6.98 10*3/uL 1.88-7.09 (test code = 4966813672) IMM GRAN x10^3 (test 0.06 10*3/uL 0.00-0.06 code = 6445048431) LYMPH x10^3 (test code 3.89 10*3/uL 1.32-3.29 H = 731-0) MONO x10^3 (test code 0.44 10*3/uL 0.33-0.92 = 742-7) EOS x10^3 (test code = 0.03 10*3/uL 0.03-0.39 711-2) BASO x10^3 (test code 0.04 10*3/uL 0.01-0.07 = 704-7) ROULEAUX (test code = Present See_Comment A [Auto mated 8597-4) message] The sy stem which generated this result transmitted reference range : (none). The reference range was not used to interpret this result as normal/abnormal . REACT LYMPHS (test Rare code = 1345114065) Lab Interpretation Abnormal (test code = 71696-1) [facility]36 Test Item Value Reference Range Interpretation Comments APPEARANCE (test code = Hazy Clear A 8006331671) COLOR (test code = Yellow Yellow 6869297859) PH (test code = 4.8-8.0 1691032060) SP GRAVITY (test code = 1.003-1.030 6603825224) GLU U QUAL (test code = Normal Normal 9716808491) BLOOD (test code = 3+ Negative A 2188580124) KETONES (test code = 20 mg/dL Negative A 6833128083) PROTEIN (test code = Negative Negative 2887-8) UROBILIN (test code = Normal Normal 5300768867) BILIRUBIN (test code = Negative Negative 5437196726) NITRITE (test code = Negative Negative 6124285749) LEUK ERICA (test code = Negative Negative 0451595029) RBC/HPF (test code = See_Comment H [Autom ated message] 5261932370) The system Zairge generated this result transmitted ref erence range: 0 - 3 HP F. The reference range was not used to int erpret this result as normal/abnormal . WBC/HPF (test code = See_Comment H [Autom ated message] 1399166245) The system Zairge generated this result transmitted ref erence range: 0 - 5 HP F. The reference range was not used to int erpret this result as normal/abnormal . BACTERIA (test code = Moderate Negative A 0626409523) MUCOUS (test code = Slight Negative LPF A 0227810945) SQ EPITH (test code = HPF 9767093682) Lab Interpretation (test Abnormal code = 11223-3) [facility] 23:21:36 Test Item Value Reference Range Interpretation Comments APPEARANCE (test code = Hazy Clear A 9084724522) COLOR (test code = Yellow Yellow 7362504068) PH (test code = 4.8-8.0 9521330590) SP GRAVITY (test code = 1.003-1.030 9930717525) GLU U QUAL (test code = Normal Normal 5129059240) BLOOD (test code = 3+ Negative A 0777740221) KETONES (test code = 20 mg/dL Negative A 3218058678) PROTEIN (test code = Negative Negative 2887-8) UROBILIN (test code = Normal Normal 2224506362) BILIRUBIN (test code = Negative Negative 6539986400) NITRITE (test code = Negative Negative 6927130499) LEUK ERICA (test code = Negative Negative 7947028224) RBC/HPF (test code = See_Comment H [Autom ated message] 5970378842) The system Zairge generated this result transmitted ref erence range: 0 - 3 HP F. The reference range was not used to int erpret this result as normal/abnormal . WBC/HPF (test code = See_Comment H [Autom ated message] 4524018869) The system Zairge generated this result transmitted ref erence range: 0 - 5 HP F. The reference range was not used to int erpret this result as normal/abnormal . BACTERIA (test code = Moderate Negative A 8072258681) MUCOUS (test code = Slight Negative LPF A 8335585609) SQ EPITH (test code = HPF 9128053868) Lab Interpretation (test Abnormal code = 85740-8) [facility]2021-09-06 23:00:34 Test Item Value Reference Range Interpretation Comments ALCOHOL (test code = <10 mg/dL 2640617224) MOUNIKA (test code = MOUNIKA) <10 Xdnkuzjt29-509 Toxic>100 Depression of SBA BUSINESS DEVELOPMENT OFFICER>400 Fatalities Reported [facility]2021-09-06 23:00:34 Test Item Value Reference Range Interpretation Comments ALCOHOL (test code = <10 mg/dL 0844610279) MOUNIKA (test code = MOUNIKA) <10 Rsitxpgk17-673 Toxic>100 Depression of SBA BUSINESS DEVELOPMENT OFFICER>400 Fatalities Reported [facility] [id number] 22:42:01 Test Item Value Reference Range Interpretation Comments TSH (test code = See_Comment [Automated message] 1557648897) The system Zairge generated this result transmitted ref erence range: 0.45 - 4 .70 mIU/L. The refe rence range was not u sed to interpret this result as normal/abnor mal. Lab Interpretation (test Normal code = 43354-8) [facility] [id number] 22:42:01 Test Item Value Reference Range Interpretation Comments TSH (test code = See_Comment [Automated message] 4640305073) The system Zairge generated this result transmitted ref erence range: 0.45 - 4 .70 mIU/L. The refe rence range was not u sed to interpret this result as normal/abnor mal. Lab Interpretation (test Normal code = 12056-5) [place] [id number] 22:28:43 Test Item Value Reference Range Interpretation Comments FREE T4 (test code = See_Comment [Autom ated message] 8185321220) The system Zairge generated this result transmitted ref erence range: 0.78 - 2 .20 ng/dL:. The ref erence range was not u sed to interpret this result as normal/abnor mal. Lab Interpretation (test Normal code = 59418-9) [place] [id number] 22:28:43 Test Item Value Reference Range Interpretation Comments FREE T4 (test code = See_Comment [Autom ated message] 9209544038) The system Zairge generated this result transmitted ref erence range: 0.78 - 2 .20 ng/dL:. The ref erence range was not u sed to interpret this result as normal/abnor mal. Lab Interpretation (test Normal code = 90200-1) [facility] [id number] 22:28:00 Test Item Value Reference Range Interpretation Comments POCT PREG (test code = 1605) negative On board controls acceptable with present C Line (test code = 3574) POCT PREG LOT # (test code = 3575) [id number] POCT PREG TEST DATE (test code = 3576) Lab Interpretation (test code = Normal 32585-9) [facility] [id number] 22:28:00 Test Item Value Reference Range Interpretation Comments POCT PREG (test code = 1605) negative On board controls acceptable with present C Line (test code = 3574) POCT PREG LOT # (test code = 3575) [id number] POCT PREG TEST DATE (test code = 3576) Lab Interpretation (test code = Normal 67067-1) [facility] [id number] 22:23:40 Test Item Value Reference Interpretation Comments Range TROPONIN I (test <0.012 See_Comment [Automated code = 0761171456) message] The system which generated this result [...] biotin. Lab Interpretation Normal (test code = 86631-7) [facility] [id number] 22:23:40 Test Item Value Reference Interpretation Comments Range TROPONIN I (test <0.012 See_Comment [Automated code = 9225079208) message] The system which generated this result [...] biotin. Lab Interpretation Normal (test code = 31687-0) [id number] 22:20:42 Test Item Value Reference Range Interpretation Comments NT-proBNP (test code 71 pg/mL See_Comment [Autom ated = [id number]) message] The system which generated this result transmitted reference range : <=125. The reference range was not used to interpret this result as normal/abnormal . MOUNIKA (test code = MOUNIKA) Biotin has been reported to cause a negative bias, interpret results relative to patient's use of biotin. Lab Interpretation Normal (test code = 54751-3) [id number] 22:20:42 Test Item Value Reference Range Interpretation Comments NT-proBNP (test code 71 pg/mL See_Comment [Autom ated = [id number]) message] The system which generated this result transmitted reference range : <=125. The reference range was not used to interpret this result as normal/abnormal . MOUNIKA (test code = MOUNIKA) Biotin has been reported to cause a negative bias, interpret results relative to patient's use of biotin. Lab Interpretation Normal (test code = 56918-5) [facility]. METABOLIC PANEL ([id number])2021-02-26 22:20:16 Test Item Value Reference Range Interpretation Comments NA (test code = 139 mmol/L 135-145 4381647440) K (test code = 3.8 mmol/L 3.5-5.0 8423325448) CL (test code = 102 mmol/L 98-108 9911290649) CO2 TOTAL (test code = 28 mmol/L 23-31 3872128360) AGAP (test code = 2-16 5028697154) BUN (test code = 11 mg/dL 7-23 1692069064) GLUCOSE (test code = 93 mg/dL 70-110 6780311608) CREATININE (test code = 0.63 mg/dL 0.50-1.04 8474457170) TOTAL BILI (test code = 0.5 mg/dL 0.1-1.2 5986547475) CALCIUM (test code = 9.6 mg/dL 8.6-10.6 9269305543) T PROTEIN (test code = 8.8 g/dL 6.3-8.2 H 7845864012) ALBUMIN (test code = 4.7 g/dL 3.5-5.0 0786580510) ALK PHOS (test code = 84 U/L 34-122 0218073959) ALTv (test code = 20 U/L 5-35 1742-6) AST(SGOT) (test code = 26 U/L 13-40 2265891569) eGFR (test code = mL/min/1.73m2 6588098265) MOUNIKA (test code = MOUNIKA) Association of [...] tests). Lab Interpretation Abnormal (test code = 83376-1) [facility]. METABOLIC PANEL ([id number])2021-02-26 22:20:16 Test Item Value Reference Range Interpretation Comments NA (test code = 139 mmol/L 135-145 3712309586) K (test code = 3.8 mmol/L 3.5-5.0 1672961775) CL (test code = 102 mmol/L 98-108 5508472151) CO2 TOTAL (test code = 28 mmol/L 23-31 7774830804) AGAP (test code = 2-16 8316270160) BUN (test code = 11 mg/dL 7-23 1610844267) GLUCOSE (test code = 93 mg/dL 70-110 5248914878) CREATININE (test code = 0.63 mg/dL 0.50-1.04 7931177127) TOTAL BILI (test code = 0.5 mg/dL 0.1-1.1 4317423586) CALCIUM (test code = 9.6 mg/dL 8.6-10.6 5860571244) T PROTEIN (test code = 8.8 g/dL 6.3-8.2 H 9446677953) ALBUMIN (test code = 4.7 g/dL 3.5-5.0 2881544634) ALK PHOS (test code = 84 U/L 34-122 1956668257) ALTv (test code = 20 U/L 5-35 1742-6) AST(SGOT) (test code = 26 U/L 13-40 3694047788) eGFR (test code = mL/min/1.73m2 5686087773) MOUNIKA (test code = MOUNIKA) Association of [...] tests). Lab Interpretation Abnormal (test code = 94549-7) [facility]ID [facility]2021-02-26 22:14:21 Test Item Value Reference Range Interpretation Comments SARS-CoV-2 Rapid ID NOW Not Detected Not Detected (test code = 02169-3) MOUNIKA (test code = MOUNIKA) ID NOW COVID-19 Assay is an isothermal nucleic acid amplification test intended for the qualitative detection of nucleic acid from SARS-CoV-2 viral RNA in nasopharyngeal (EXPENSE CLERK) specimens. It is used under Emergency Use [...] indicated. Lab Interpretation Normal (test code = 23247-2) [facility])2021-02-26 22:14:21 Test Item Value Reference Range Interpretation Comments SARS-CoV-2 Rapid ID NOW Not Detected Not Detected (test code = 23718-3) MOUNIKA (test code = MOUNIKA) ID NOW COVID-19 Assay is an isothermal nucleic acid amplification test intended for the qualitative detection of nucleic acid from SARS-CoV-2 viral RNA in nasopharyngeal (EXPENSE CLERK) specimens. It is used under Emergency Use [...] indicated. Lab Interpretation Normal (test code = 31178-5) [facility]"
--- NOTE | 2022-01-12 21:00 | ER ---
Nurse's Notes [facility] Name: Taylor Monterroso Age: 21 yrs Sex: Female : 2000 Arrival Date: 01/12/2022 Time: 19:25 Bed 12 Private MD: Diagnosis: Acute otalgia Presentation: 01/12 20:11 Chief complaint: Patient states: WENT TO DOCTOR ON FRIDAY AND THE MEDS GIVEN ARE NOT [facility] HELPING. Coronavirus screen: Vaccine status: Patient reports being unvaccinated. At this time, the client does not indicate any symptoms associated with coronavirus-19. Ebola Screen: Patient negative for fever greater than or equal to 101.5 degrees Fahrenheit, and additional compatible Ebola Virus Disease symptoms. Initial Sepsis Screen: Does the patient meet any 2 criteria? No. Patient's initial sepsis screen is negative. Does the patient have a suspected source of infection? No. Patient's initial sepsis screen is negative. Risk Assessment: Do you want to hurt yourself or someone else? Patient reports no desire to harm self or others. Onset of symptoms was January 03, 2022. 20:11 Method Of Arrival: Ambulatory [facility] 20:11 Acuity: RITA 4 [facility] Triage Assessment: 20:13 General: Appears in no apparent distress. Behavior is calm, cooperative, appropriate [facility] for age. Pain: Denies pain. Pain: Complains of pain in right ear. EENT: Reports pain. 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 - Social history:: Smoking status: Patient denies any tobacco usage or history of. Screenin:34 Abuse screen: Denies threats or abuse. Nutritional screening: No deficits noted. [facility] Tuberculosis screening: No symptoms or risk factors identified. Fall Risk None identified. Assessment: 21:34 Reassessment: No changes from previously documented assessment. [facility] Vital Signs: 20:11 BP 127 / 75; Pulse 89; Resp 20; Temp 98.8; Pulse Ox 98% ; Weight 89.36 kg; Height 5 ft. 1 1 in. (154.94 cm); Pain 8/10; 20:11 Body Mass Index 37.22 (89.36 kg, 154.94 cm) [facility] ED Course: 19:25 Patient arrived in ED. mr 19:25 Jacinto Stone PA is PHCP. [facility] 19:26 Oleg Mercado DO is Attending Physician. [facility] 20:13 Triage completed. [facility] 20:14 Arm band placed on. [facility] 20:59 Celi Evangelista MD is Referral Physician. [facility] 21:34 Patient has correct armband on for positive identification. [facility] 21:34 No provider procedures requiring assistance completed. Patient did not have IV access [facility] during this emergency room visit. Administered Medications: 21:09 Drug: cefTRIAXone 1 grams Route: IM; Site: right ventrogluteal; as6 21:30 Follow up: Response: No adverse reaction [facility] Medication: 21:34 VIS not applicable for this client. [facility] Outcome: 20:[address] . [facility] 21:34 Discharged to home ambulatory. [facility] 21:34 Condition: good 21:34 Discharge instructions given to patient, Instructed on discharge instructions, follow up and referral plans. Demonstrated understanding of instructions, follow-up care. 21:35 Patient left the ED. [facility] Signatures: Jacinto Stone PA PA jmm Rivera, Mary mr OakesAaron, RN RN as6 Lara Walden RN RN 1
--- NOTE | 2022-01-12 21:00 | EDPHYS ---
Physician Documentation [facility] Name: Taylor Monterroso Age: 21 yrs Sex: Female : 2000 Arrival Date: 01/12/2022 Time: 19:25 Bed 12 Private MD: ED Physician Oleg Mercado HPI: 01/12 20:16 This 21 yrs old Female presents to ER via Ambulatory with complaints of Ear jmm Pain. 20:16 The patient presents with pain. Onset: The symptoms/episode began/occurred gradually. jmm Modifying factors: The symptoms are alleviated by nothing, the symptoms are aggravated by nothing. This is a 21-year-old female with no chronic medical conditions the presents emerged part with complaints of right ear pain beginning this past . Patient was prescribed eardrops with no relief. Patient denies cough or congestion. Denies fever.. 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 - Social history:: Smoking status: Patient denies any tobacco usage or history of. ROS: 20:16 Constitutional: Negative for fever, chills, and weight loss. jmm 20:16 ENT: Positive for ear pain. 20:16 All other systems are negative. Exam: 20:16 Constitutional: This is a well developed, well nourished patient who is awake, alert, jmm and in no acute distress. Head/Face: atraumatic. Eyes: EOMI, no conjunctival erythema appreciated 20:16 Neck: Trachea midline, Supple Chest/axilla: Normal chest wall appearance and motion. Cardiovascular: Regular rate and rhythm. No edema appreciated Respiratory: Normal respirations, no respiratory distress appreciated Abdomen/GI: Non distended Back: Normal ROM Skin: General appearance color normal MS/ Extremity: Moves all extremities, no obvious deformities appreciated, no edema noted to the lower extremities Neuro: Awake and alert Psych: Behavior is normal, Mood is normal, Patient is cooperative and pleasant 20:16 ENT: TM's: not visable, because of discharge. Vital Signs: 20:11 BP 127 / 75; Pulse 89; Resp 20; Temp 98.8; Pulse Ox 98% ; Weight 89.36 kg; Height 5 ft. bh1 1 in. (154.94 cm); Pain 8/10; 20:11 Body Mass Index 37.22 (89.36 kg, 154.94 cm) 1 MDM: 20:16 Patient medically screened. [facility] 20:58 Data reviewed: vital signs, nurses notes. Counseling: I had a detailed discussion with vero the patient and/or guardian regarding: the historical points, exam findings, and any diagnostic results supporting the discharge/admit diagnosis, the need for outpatient follow up, to return to the emergency department if symptoms worsen or persist or if there are any questions or concerns that arise at home. ED course: Patient is alert nontoxic in appearance in the ED. Ear wick placed and drops were were applied to the right ear. Patient states having significant relief. Patient advised follow with ENT and otherwise given strict return precautions. Patient understood agrees plan of care.. Administered Medications: 21:09 Drug: cefTRIAXone 1 grams Route: IM; Site: right ventrogluteal; as6 21:30 Follow up: Response: No adverse reaction [facility] Disposition: 01/13 06:29 Co-signature as Attending Physician, Oleg Mercado DO I was immediately available on-site ms3 in the Emergency Department for consultation in the care of the patient.. Disposition Summary: 01/12/22 20:59 Discharge Ordered Location: Home [facility] Condition: Stable [facility] Diagnosis - Acute otalgia [facility] Followup: [facility] - With: Celi Evangelista MD - When: 2 - 3 days - Reason: Recheck today's complaints, Continuance of care, Re-evaluation by your physician Discharge Instructions: - Discharge Summary Sheet [facility] - Earache, Adult [facility] Forms: - Medication Reconciliation Form [facility] - Thank You Letter [facility] - Antibiotic Education [facility] - Prescription Opioid Use [facility] - Work release form [facility] Prescriptions: - Augmentin 875-125 mg Oral Tablet - take 1 tablet by ORAL route every 12 hours for 10 days; 20 tablet; Refills: 0, vero Product Selection Permitted Signatures: Jacinto Stone PA PA jmm Sims, Marcus, DO DO ms3 Aaron Oakes RN RN as6 Walden, Lara, RN RN bh1
[2022-01-12] MEDS ORDERED: LIDOCAINE 1% MPF 2 ML AMPULE ONE (21:13)
[2022-01-12] MEDS ORDERED: CEFTRIAXONE 1000 MG/VIAL ONE (21:13)
[2022-01-12 21:53] VITALS: BP 127/75; TEMP 98.8; O2SAT 98
== END 2022-01-12 21:35 | disposition home or self-care (01) ==
LOC: ER 19:22
DX: H92.01 Otalgia, right ear (principal)
CPT/HCPCS: 96372; 99283

== ENCOUNTER 2025-02-03 17:29 | Emergency (ER) | payer SELFPAY ==
--- OUTSIDE RECORDS SUMMARY | 2025-02-03 17:46 | XMS REPORT | Continuity of Care Document ---
Author Name Unknown Address [address] [facility] [address] [place] [address] Organization [facility] Address [address] 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 Role Phone Pcp, Patient Does Not Have A Primary Care Physic jonnathan Judy Castellano MD Attending Clinician [phone] POLLY MINA Attending Clinician UnavailNATHANIEL Jameson Attending Clinician Unavail Nathaniel Victoria Attending Clinician + Visit, Sunny Nurse Attending Clinician Unava ilable Unknown, Attending Attending Clinician UnavailPolly Daina CNM Attending Clinician [phone] SIDNEY ELIZONDO Attending Clinician UnavailOri Moreland MD Attending Clinician [phone] Sidney Elizondo MD Attending Clinician + [phone] Doctor Unassigned, [place] Attending Clinician Jessa Downing NP Attending Clinician [phone] Judy Castellano MD Attending Clinician [phone] CYNDY BELL Attending Clinician Unageorges pinto Ultrasound, Fareed-christiano Attending Clinician UnavailCyndy Ramos MD Attending Clinician + JESSA DILLARD Attending Clinician Unavail able Elodia Nguyen MD Attending Clinician [phone] Kathrine Smith MD Attending Clinician [phone] KATHRINE SMITH Attending Clinician Unavailable Risk, Zac-Hhkvu-Zx/High Attending Clinician Unav ailable ELODIA NGUYEN Attending Clinician Unavailable Tay Kang Attending Clinician + [phone] JUDY CASTELLANO Attending Clinician Unavailable JUDY CASTELLANO Attending Clinician Unavailable TAY YAP Attending Clinician Unavailable RICH HORTON Attending Clinician Unavailable RICH HORTON Attending Clinician Unavailable Rich Horton MD Attending Clinician [phone] Lab, Fareed-Oumar Attending Clinician Unavailable Jovanny James MD Attending Clinician [phone] Lab, Adc Fam Pob I Attending Clinician Unavailab Katheryn Evangelista Attending Clinician [phone] Lacey Espinosa DO Attending Clinician [phone] SIDNEY ELIZONDO Admitting Clinician UnavailSidney Gold MD Admitting Clinician + [phone] ELODIA NGUYEN Admitting Clinician Unavailable Elodia Nguyen MD Admitting Clinician [phone] Payers Payer Name Policy Type Policy Number Effective Date Expirati on Date Source [facility] [id number] 00:00:00 [facility] [id number] 2023 00:00:00 Problems Condition Name Condition Details Condition Category Status Onset Date Resolution Date Last Treatment Date Treating Clinician Comments Source Routine follow-up Routine follow-up Disease Active 3-11 00:00: 00 [facility] Susceptibl e to varicella (non-immun e), currently Susceptibl e to varicella (non-immun e), currently Disease Active 02-19 00:00: 00 [facility] Pregestati onal diabetes mellitus, modified White class B Pregestati onal diabetes mellitus, modified White class B Disease Active 8- 00:00: 00 Overview: Formattin g of this note might be different from the original. failed 3hr gtt [facility] Rubella non-immune status, antepartum Rubella non-immune status, antepartum Disease Active 8- 00:00: 00 Overview: Formattin g of this note might be different from the original. Address pp [facility] Obesity in Obesity in Disease Active 8- 00:00: 00 [facility] 37 weeks gestation of 37 weeks gestation of Disease Resolve d 2-16 00:00: 00 2023-09-01 00:00:00 2023-09-01 10:48:22 [facility] GBS (group B Streptococ cus carrier), +RV culture, currently GBS (group B Streptococ cus carrier), +RV culture, currently Disease Resolve d 2-05 00:00: 00 2023-09-01 00:00:00 2023-09-01 10:48:23 [facility] Previous delivery affecting , antepartum Previous delivery affecting , antepartum Disease Resolve d 2-01 00:00: 00 2023-09-01 00:00:00 2023-09-01 10:48:32 [facility] History of delivery History of delivery Disease Resolve d 8- 00:00: 00 2023-09-01 00:00:00 2023-09-01 10:48:26 Overview: Formattin g of this note might be different from the original. 26 weeks see scanned records [facility] Supervisio n of high-risk Supervisio n of high-risk Disease Resolve d 0 2-05 00:00: 00 2023-09-01 00:00:00 2023-09-01 10:48:29 [facility] Urinary tract infection in mother during third trimester of Urinary tract infection in mother during third trimester of Disease Resolve d 0 2-01 00:00: 00 2023-08-05 00:00:00 2023-08-05 13:49:29 [facility] History of placenta abruption History of placenta abruption Disease Resolve d 8- 00:00: 00 2023-07-29 00:00:00 2023-07-29 12:49:00 Overview: Formattin g of this note might be different from the original. 8, see scanned records [facility] Abnormal maternal glucose tolerance, antepartum Abnormal maternal glucose tolerance, antepartum Disease Resolve d 8- 00:00: 00 2023-07-08 00:00:00 2023-07-08 16:19:36 Overview: Formattin g of this note might be different from the original. pending 3hr gtt [facility] BV (bacterial vaginosis) BV (bacterial vaginosis) Disease Resolve d 12-03 00:00: 00 2023-07-08 00:00:00 2023-07-08 14:54:59 [facility] Vaginal bleeding during , antepartum Vaginal bleeding during , antepartum Disease Resolve d 10-06 00:00: 00 2023-01-21 00:00:00 2023-01-21 08:49:35 [facility] Abnormal maternal glucose tolerance, antepartum Abnormal maternal glucose tolerance, antepartum Disease Resolve d 2 00:00: 00 2023-01-21 00:00:00 2023-01-21 08:49:30 Overview: Formattin g of this note might be different from the original. Passed 3hr [facility] Susceptibl e to varicella (non-immun e), currently Susceptibl e to varicella (non-immun e), currently Disease Resolve d 2-06 00:00: 00 2023-01-21 00:00:00 2023-01-21 08:49:51 [facility] Dysuria Dysuria Disease Resolve d 11-22 00:00: 00 2017-07-28 00:00:00 2017-07-28 16:28:49 [facility] UTI (urinary tract infection) UTI (urinary tract infection) Disease Resolve d 11-22 00:00: 2017-07-28 00:00:00 2017-07-28 16:28:48 [facility] Constipati on Constipati on Disease Resolve d 11-22 00:00: 00 2017-07-28 00:00:00 2017-07-28 16:28:46 [facility] Allergies, Adverse Reactions, Alerts Allergy Name Allergy Type Status Severity Reaction(s) Onset Date Inactive Date Treating Clinician Comments Source NO KNOWN ALLERGIE S Drug Class Active [facility] Social History Social Habit Start Date Stop Date Quantity Comments Source ASSERTION 2022-12-05 00:00:00 Not [facility] Exposure to SARS-CoV-2 (event) Not sure [facility] History of Social function 2023-08-18 00:00:00 2023-08-18 00:00:00 [facility] Alcohol intake 2023-08-13 00:00:00 2023-08-13 00:00:00 Current non-drinker of alcohol (finding) [facility] Alcoholic beverage intake 2023-08-10 00:00:00 2023-08-10 00:00:00 Current non-drinker of alcohol (finding) [facility] Tobacco use and exposure 2023-04-17 00:00:00 2023-04-17 00:00:00 Smokeless tobacco non-user [facility] Sex assigned at 2000 00:00:00 2000 00:00:00 [facility] Smoking Status Start Date Stop Date Source Never smoked tobacco [facility] Medications Ordered Medication Name Filled Medication Name Start Date Stop Date Current Medication? Ordering Clinician Indication Dosage Frequency Signature (SIG) Comments Components Source polyethylen e glycol 3350 powder 17 g 08-09 15:00: 00 Yes 17g 17 g, Oral, DAILY, First dose on 08/09/23 at 0900, Until Discontinu ed, Routine [facility] vitamin w/FA tablet 08-09 00:00: 00 Yes [id number] 1{tbl} Take 1 tablet by mouth in the morning. [facility] docusate 100 mg capsule 08-09 00:00: 00 Yes [id number] 200mg Take 2 capsules by mouth once daily as needed for Constipati on. [facility] ibuprofen 600 mg tablet 08-09 00:00: 00 Yes [id number] 600mg Take 1 tablet by mouth every 6 (six) hours as needed (Pain). Take with food or milk. [facility] metFORMIN 500 mg tablet 08-09 00:00: 00 09-08 04:59 :00 No [id number] 500mg Take 1 tablet by mouth in the morning and 1 tablet in the evening. Take with meals. Do all this for 30 days. [facility] oxyCODONE 5 mg immediate release tablet 08-09 00:00: 00 08-17 05:59 :00 No [id number] 5mg Take 1 tablet by mouth every 6 (six) hours as needed for Pain (scale 7-10) for up to 7 days. Indication s: acute pain [facility] ferrous sulfate 325 mg (65 mg iron) tablet 08-09 00:00: 00 08-09 00:00 :00 No [id number] 325mg Take 1 tablet by mouth in the morning. [facility] metFORMIN (GLUCOPHAGE ) tablet 500 mg 08-08 23:00: 00 Yes 500mg 500 mg, Oral, BID MEALS, First dose on Fri08/08/23 at 1700, Until Discontinu ed, Routine [facility] simethicone (GAS RELIEF (SIMETHICON E)) chewable tablet 160 mg 08-08 19:00: 00 Yes 160mg 160 mg, Oral, PC+HS, First dose on Fri08/08/23 at 1300, Until Discontinu ed, Routine [facility] ibuprofen (IBU) tablet 800 mg 08-08 18:30: 00 Yes 800mg 800 mg, Oral, Q8HA1, First dose on Fri08/08/23 at 1230, Until Discontinu ed, Routine [facility] acetaminoph en (TYLENOL) tablet 1,000 mg 08-08 17:15: 00 Yes 1000mg 1,000 mg, Oral, Q8H, First dose on Fri08/08/23 at 1115, Until Discontinu ed, Routine [facility] lactated ringers IV infusion 1,000 mL 08-08 17:15: 00 08-08 17:47 :29 No 1000mL at 125 mL/hr, 1,000 mL, IV Infusion, ONCE, 1 dose, On Fri08/08/23 at 1115, Routine [facility] rho(D) immune globulin (RHOGAM) syringe 300 mcg 08-08 17:07: 07 Yes 300ug 300 mcg, Intramuscu lar, ONCE, For 1 dose, Conditiona l, Routine [facility] oxyCODONE immediate release tablet 5 mg 08-08 17:07: 02 Yes 5mg 5 mg, Oral, Q6HPRN, Starting on Fri08/08/23 at 1107, Until Discontinu ed, Routine, Pain (scale 7-10)
F aculty member approving Restricted medication : SIDNEY ELIZONDO [facility] diphenhydrA MINE (BENADRYL) injection 25 mg 08-08 17:07: 02 Yes 25mg 25 mg, Slow IV Push, Q6HPRN, Starting on Fri08/08/23 at 1107, Until Discontinu ed, Routine, Itching [facility] diphenhydrA MINE (BENADRYL) tablet 25 mg 08-08 17:07: 02 Yes 25mg 25 mg, Oral, Q6HPRN, Starting on Fri08/08/23 at 1107, Until Discontinu ed, Routine, Sleep, Itching [facility] ondansetron (ZOFRAN (PF)) injection 4 mg 08-08 17:07: 02 Yes 4mg 4 mg, Slow IV Push, Q8HPRN, Starting on Fri08/08/23 at 1107, Until Discontinu ed, Routine, Nausea and Vomiting (N/V) [facility] bisacodyL (DULCOLAX) suppository 10 mg 08-08 17:07: 02 Yes 10mg 10 mg, Rectal, QDAILYPRN, Starting on Fri08/08/23 at 1107, Until Discontinu ed, Routine, Constipati on [facility] docusate (COLACE) capsule 200 mg 08-08 17:07: 02 Yes 200mg 200 mg, Oral, QDAILYPRN, Starting on Fri08/08/23 at 1107, Until Discontinu ed, Routine, Constipati on [facility] magnesium hydroxide (MILK OF MAGNESIA) 400 mg/5 mL suspension 30 mL 08-08 17:07: 02 Yes 30mL 30 mL, Oral, QDAILYPRN, Starting on Fri08/08/23 at 1107, Until Discontinu ed, Routine, Constipati on [facility] lactated ringers IV infusion 1,000 mL 08-08 17:07: 02 Yes 1000mL at 125 mL/hr, 1,000 mL, IV Infusion, PRN, 1 dose, Starting on Fri08/08/23 at 1107, Until Discontinu ed, Routine [facility] diphenhydrA MINE (BENADRYL) injection 25 mg 08-08 14:42: 31 08-10 00:55 :37 No 25mg 25 mg, Slow IV Push, Q4HPRN, Starting on Fri08/08/23 at 0842, Until 08/09/23 at 1855, Routine, Itching [facility] ketorolac (TORADOL) injection 30 mg 08-08 14:42: 30 08-11 05:59 :00 No 30mg 30 mg, Slow IV Push, PRN, 1 dose, Starting on Fri08/08/23 at 0842, Until 08/10/23 at 2359, Routine, Pain (scale 7-10) [facility] naloxone (NARCAN) injection 0.4 mg 08-08 14:42: 15 08-10 14:41 :15 No .4mg 0.4 mg, Slow IV Push, PRN - SEE INSTRUCTIO NS, Starting on Fri08/08/23 at 0842, Until 08/10/23 at 0841, Routine, Sedation/R espiratory Depression , Analagesia Recovery [facility] metoclopram israel HCl (REGLAN) injection 10 mg 08-08 14:42: 15 08-10 00:52 :35 No 10mg 10 mg, Slow IV Push, Q4HPRN, Starting on Fri08/08/23 at 0842, Until 08/09/23 at 1852, Routine, Nausea and Vomiting (N/V) [facility] acetaminoph en (TYLENOL) tablet 650 mg 08-08 11:45: 00 08-08 13:10 :00 No 650mg 650 mg, Oral, ONCE, 1 dose, On Fri08/08/23 at 0545, Routine [facility] lactated ringers IV infusion 1,000 mL 08-08 11:45: 00 08-08 17:07 :06 No 1000mL at 125 mL/hr, 1,000 mL, IV Infusion, CONTINUOUS , Starting on Fri08/08/23 at 0545, Until Fri08/08/23 at 1107, Routine [facility] ceFAZolin (ANCEF) 2,000 mg in NaCl 0.9% (NS) 100 mL MINI-BAG 08-08 11:37: 48 08-08 14:40 :00 No 2000mg 2,000 mg, IV Piggyback, O.R. HOLDING ONCE, 1 dose, Starting on Fri08/08/23 at 0537, Until 08/10/23 at 2359, Administer over 30 Minutes, 100 mL
Reas on for Anti-Infec tive: Surgical Prophylaxi s
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
Duration of therapy: within 24 hours of surgery [facility] sodium citrate-cit nicolette acid (BICITRA) 500-334 mg/5 mL solution 30 mL 08-08 11:37: 48 08-08 14:09 :00 No 30mL 30 mL, Oral, PRE-PROCED URE ONCE, 1 dose, Starting on Fri08/08/23 at 0537, Until 08/10/23 at 2359, Routine, Surgery/Pr ocedure [facility] lancets (EASY TOUCH TWIST LANCETS) 33 gauge Misc 2-12 00:00: 00 Yes [id number] CHECK BLOOD SUGAR FOUR TIMES A DAY [facility] lancets (EASY TOUCH TWIST LANCETS) 33 gauge Misc 2-12 00:00: 00 Yes [id number] CHECK BLOOD SUGAR FOUR TIMES A DAY [facility] cephALEXin 500 mg capsule -12 00:00: 00 07-24 00:00 :00 No [id number] 500mg Take 1 capsule by mouth 4 (four) times daily. [facility] NaCl 0.9% (NS) IV infusion 1,000 mL 07-02 06:30: 00 07-02 05:43 :05 No 1000mL at 999 mL/hr, IV Infusion, ONCE, 1 dose, On Fri07/02/23 at 0030, Routine [facility] blood sugar diagnostic (FREESTYLE LITE STRIPS) strip 2022-06 00:00: 00 Yes [id number] Check blood glucose 4x daily [facility] metFORMIN 500 mg tablet 2022-06 00:00: 00 08-09 00:00 :00 No [id number] Take 1 tablet by mouth daily with breakfast AND 3 tablets at bedtime. Do all this for 60 days. [facility] metFORMIN 500 mg tablet 2022-06 00:00: 00 06-11 00:00 :00 No [id number] Take 1 tablet by mouth daily with breakfast AND 3 tablets at bedtime. Do all this for 60 days. [facility] blood sugar diagnostic (FREESTYLE LITE STRIPS) strip 2022-06 00:00: 00 06-11 00:00 :00 No [id number] Check blood glucose 4x daily [facility] metFORMIN 500 mg tablet 2022-06- 00:00: 00 05-14 00:00 :00 No [id number] Take 1 tablet by mouth daily with breakfast AND 3 tablets at bedtime. Do all this for 120 days. [facility] metFORMIN 500 mg tablet 2022-06 0-26 00:00: 00 05-01 00:00 :00 No [id number] Take 1 tablet by mouth daily with breakfast AND 2 tablets with evening meal. Do all this for 120 days. [facility] blood sugar diagnostic (FREESTYLE LITE STRIPS) strip 2022-06 0-16 00:00: 00 05-01 00:00 :00 No [id number] Check blood glucose 4x daily [facility] blood sugar diagnostic (FREESTYLE LITE STRIPS) strip 2022-06 0- 00:00: 00 Yes [id number] Check blood glucose 4x daily [facility] aspirin 81 mg EC tablet 03-20 00:00: 00 08-09 00:00 :00 No [id number] 81mg Take 1 tablet by mouth in the morning for 180 days. [facility] metFORMIN 500 mg tablet 03-20 00:00: 00 04-17 00:00 :00 No [id number] 500mg Take 1 tablet by mouth in the morning and 1 tablet in the evening. Take with meals. Do all this for 90 days. [facility] metroNIDAZO LE 500 mg tablet 03-04 00:00: 00 07-24 00:00 :00 No [id number] 500mg Take 1 tablet by mouth in the morning and 1 tablet in the evening. [facility] Blood-Gluco se Meter (FREESTYLE LITE METER) Kit 01-30 00:00: 00 Yes [id number] Check blood glucose 4x daily [facility] lancets (FREESTYLE LANCETS) 28 gauge Misc 01-30 00:00: 00 08-04 00:00 :00 No [id number] Check glucose 4x daily [facility] blood sugar diagnostic (FREESTYLE LITE STRIPS) strip 8- 00:00: 00 04-01 00:00 :00 No [id number] Check blood glucose 4x daily [facility] proMETHazin e 25 mg tablet 8 00:00: 00 07-24 00:00 :00 No [id number] 25mg Take 1 tablet by mouth every 6 (six) hours as needed for Nausea and Vomiting (N/V). [facility] NaCl 0.9% (NS) bolus infusion 1,000 mL 02-26 23:30: 00 02-27 00:05 :00 No 1000mL at 999 mL/hr, 1,000 mL, IV Infusion, ONCE, 1 dose, 02/26/21 at 1830, STAT [facility] maalox:diph enhydrAMINE :lidocaine 2 % viscous 1:1:1 (FIRST-MOUT HWASH BLM) oral suspension 15 mL 09-08 18:00: 09-08 18:00 :00 No 15mL 15 mL, Oral, ONCE, 1 dose, Lissy 09/09/19 at 1300, JATINDER [facility] ibuprofen (IBU) tablet 600 mg 09-08 18:00: 09-08 18:11 :00 No 600mg 600 mg, Oral, ONCE, 1 dose, Lissy 09/09/19 at 1300, JATINDER [facility] PNV 67-iron ps-folate no.1-dha (VITAFOL ULTRA) 29 mg iron- 1 mg-200 mg Cap 2-05 00:00: 00 Yes [id number] 1{each} Take 1 Each by mouth daily. [facility] PNV 67-iron ps-folate no.1-dha (VITAFOL ULTRA) 29 mg iron- 1 mg-200 mg Cap 2-05 00:00: 00 08-09 00:00 :00 No [id number] 1{each} Take 1 Each by mouth daily. [facility] Immunizations Ordered Immunization Name Filled Immunization Name Date Status Comments Source Influenza Virus Vaccine Quad IM 3+ YRS 2023-09-01 10:00:00 Completed [facility] DTaP, Unspecified Formulation 2023-09-01 10:00:00 Completed [facility] HEPATITIS A 2023-09-01 10:00:00 Completed [facility] Hep B, Adol or Pedi Dosage 2023-09-01 10:00:00 Completed [facility] HIB 4 Dose Schedule 2023-09-01 10:00:00 Completed [facility] HPV 2023-09-01 10:00:00 Completed [facility] HPV9 2023-09-01 10:00:00 Completed [facility] Meningococcal Polysaccharide (groups A, C, Y and W-135) conjugate vaccine (MCV4P) 2023-09-01 10:00:00 Completed [facility] MMR 2023-09-01 10:00:00 Completed [facility] IPV 2023-09-01 10:00:00 Completed [facility] TDAP 2023-09-01 10:00:00 Completed [facility] Varicella (varivax)(chicken pox) 2023-09-01 10:00:00 Completed [facility] Influenza Virus Vaccine Quad IM, Preserv and ABX Free 6 MO-64 YRS (FLUCELVAX) 2023-09-01 10:00:00 Completed [facility] Influenza Virus Vaccine Quad IM 3+ YRS 2023-08-18 13:00:00 Completed [facility] DTaP, Unspecified Formulation 2023-08-18 13:00:00 Completed [facility] HEPATITIS A 2023-08-18 13:00:00 Completed [facility] Hep B, Adol or Pedi Dosage 2023-08-18 13:00:00 Completed [facility] HIB 4 Dose Schedule 2023-08-18 13:00:00 Completed [facility] HPV 2023-08-18 13:00:00 Completed [facility] HPV9 2023-08-18 13:00:00 Completed [facility] Meningococcal Polysaccharide (groups A, C, Y and W-135) conjugate vaccine (MCV4P) 2023-08-18 13:00:00 Completed [facility] MMR 2023-08-18 13:00:00 Completed [facility] IPV 2023-08-18 13:00:00 Completed [facility] TDAP 2023-08-18 13:00:00 Completed [facility] Varicella (varivax)(chicken pox) 2023-08-18 13:00:00 Completed [facility] Influenza Virus Vaccine Quad IM, Preserv and ABX Free 6 MO-64 YRS (FLUCELVAX) 2023-08-18 13:00:00 Completed [facility] Influenza Virus Vaccine Quad IM 3+ YRS 2023-08-15 00:00:00 Completed [facility] DTaP, Unspecified Formulation 2023-08-15 00:00:00 Completed [facility] HEPATITIS A 2023-08-15 00:00:00 Completed [facility] Hep B, Adol or Pedi Dosage 2023-08-15 00:00:00 Completed [facility] HIB 4 Dose Schedule 2023-08-15 00:00:00 Completed [facility] HPV 2023-08-15 00:00:00 Completed [facility] HPV9 2023-08-15 00:00:00 Completed [facility] Meningococcal Polysaccharide (groups A, C, Y and W-135) conjugate vaccine (MCV4P) 2023-08-15 00:00:00 Completed [facility] MMR 2023-08-15 00:00:00 Completed [facility] IPV 2023-08-15 00:00:00 Completed [facility] TDAP 2023-08-15 00:00:00 Completed [facility] Varicella (varivax)(chicken pox) 2023-08-15 00:00:00 Completed [facility] Influenza Virus Vaccine Quad IM, Preserv and ABX Free 6 MO-64 YRS (FLUCELVAX) 2023-08-15 00:00:00 Completed [facility] Influenza Virus Vaccine Quad IM 3+ YRS 2023-08-08 07:15:00 Completed [facility] DTaP, Unspecified Formulation 2023-08-08 07:15:00 Completed [facility] HEPATITIS A 2023-08-08 07:15:00 Completed [facility] Hep B, Adol or Pedi Dosage 2023-08-08 07:15:00 Completed [facility] HIB 4 Dose Schedule 2023-08-08 07:15:00 Completed [facility] HPV 2023-08-08 07:15:00 Completed [facility] HPV9 2023-08-08 07:15:00 Completed [facility] Meningococcal Polysaccharide (groups A, C, Y and W-135) conjugate vaccine (MCV4P) 2023-08-08 07:15:00 Completed [facility] MMR 2023-08-08 07:15:00 Completed [facility] IPV 2023-08-08 07:15:00 Completed [facility] TDAP 2023-08-08 07:15:00 Completed [facility] Varicella (varivax)(chicken pox) 2023-08-08 07:15:00 Completed [facility] Influenza Virus Vaccine Quad IM, Preserv and ABX Free 6 MO-64 YRS (FLUCELVAX) 2023-08-08 07:15:00 Completed [facility] Influenza Virus Vaccine Quad IM 3+ YRS 2023-08-08 05:31:00 Completed [facility] DTaP, Unspecified Formulation 2023-08-08 05:31:00 Completed [facility] HEPATITIS A 2023-08-08 05:31:00 Completed [facility] Hep B, Adol or Pedi Dosage 2023-08-08 05:31:00 Completed [facility] HIB 4 Dose Schedule 2023-08-08 05:31:00 Completed [facility] HPV 2023-08-08 05:31:00 Completed [facility] HPV9 2023-08-08 05:31:00 Completed [facility] Meningococcal Polysaccharide (groups A, C, Y and W-135) conjugate vaccine (MCV4P) 2023-08-08 05:31:00 Completed [facility] MMR 2023-08-08 05:31:00 Completed [facility] IPV 2023-08-08 05:31:00 Completed [facility] TDAP 2023-08-08 05:31:00 Completed [facility] Varicella (varivax)(chicken pox) 2023-08-08 05:31:00 Completed [facility] Influenza Virus Vaccine Quad IM, Preserv and ABX Free 6 MO-64 YRS (FLUCELVAX) 2023-08-08 05:31:00 Completed [facility] Influenza Virus Vaccine Quad IM 3+ YRS 2023-08-08 00:00:00 Completed [facility] DTaP, Unspecified Formulation 2023-08-08 00:00:00 Completed [facility] HEPATITIS A 2023-08-08 00:00:00 Completed [facility] Hep B, Adol or Pedi Dosage 2023-08-08 00:00:00 Completed [facility] HIB 4 Dose Schedule 2023-08-08 00:00:00 Completed [facility] HPV 2023-08-08 00:00:00 Completed [facility] HPV9 2023-08-08 00:00:00 Completed [facility] Meningococcal Polysaccharide (groups A, C, Y and W-135) conjugate vaccine (MCV4P) 2023-08-08 00:00:00 Completed [facility] MMR 2023-08-08 00:00:00 Completed [facility] IPV 2023-08-08 00:00:00 Completed [facility] TDAP 2023-08-08 00:00:00 Completed [facility] Varicella (varivax)(chicken pox) 2023-08-08 00:00:00 Completed [facility] Influenza Virus Vaccine Quad IM, Preserv and ABX Free 6 MO-64 YRS (FLUCELVAX) 2023-08-08 00:00:00 Completed [facility] Influenza Virus Vaccine Quad IM 3+ YRS 2023-08-05 13:30:00 Completed [facility] HPV9 2023-08-05 13:30:00 Completed [facility] Influenza Virus Vaccine Quad IM, Preserv and ABX Free 6 MO-64 YRS (FLUCELVAX) 2023-08-05 13:30:00 Completed [facility] DTaP, Unspecified Formulation 2023-08-05 13:30:00 Completed [facility] HEPATITIS A 2023-08-05 13:30:00 Completed [facility] Hep B, Adol or Pedi Dosage 2023-08-05 13:30:00 Completed [facility] HIB 4 Dose Schedule 2023-08-05 13:30:00 Completed [facility] HPV 2023-08-05 13:30:00 Completed [facility] Meningococcal Polysaccharide (groups A, C, Y and W-135) conjugate vaccine (MCV4P) 2023-08-05 13:30:00 Completed [facility] MMR 2023-08-05 13:30:00 Completed [facility] IPV 2023-08-05 13:30:00 Completed [facility] TDAP 2023-08-05 13:30:00 Completed [facility] Varicella (varivax)(chicken pox) 2023-08-05 13:30:00 Completed [facility] Influenza Virus Vaccine Quad IM 3+ YRS 2023-08-04 00:00:00 Completed [facility] DTaP, Unspecified Formulation 2023-08-04 00:00:00 Completed [facility] HEPATITIS A 2023-08-04 00:00:00 Completed [facility] Hep B, Adol or Pedi Dosage 2023-08-04 00:00:00 Completed [facility] HIB 4 Dose Schedule 2023-08-04 00:00:00 Completed [facility] HPV 2023-08-04 00:00:00 Completed [facility] HPV9 2023-08-04 00:00:00 Completed [facility] Meningococcal Polysaccharide (groups A, C, Y and W-135) conjugate vaccine (MCV4P) 2023-08-04 00:00:00 Completed [facility] MMR 2023-08-04 00:00:00 Completed [facility] IPV 2023-08-04 00:00:00 Completed [facility] TDAP 2023-08-04 00:00:00 Completed [facility] Varicella (varivax)(chicken pox) 2023-08-04 00:00:00 Completed [facility] Influenza Virus Vaccine Quad IM, Preserv and ABX Free 6 MO-64 YRS (FLUCELVAX) 2023-08-04 00:00:00 Completed [facility] Influenza Virus Vaccine Quad IM 3+ YRS 2023-08-04 00:00:00 Completed [facility] DTaP, Unspecified Formulation 2023-08-04 00:00:00 Completed [facility] HEPATITIS A 2023-08-04 00:00:00 Completed [facility] Hep B, Adol or Pedi Dosage 2023-08-04 00:00:00 Completed [facility] HIB 4 Dose Schedule 2023-08-04 00:00:00 Completed [facility] HPV 2023-08-04 00:00:00 Completed [facility] HPV9 2023-08-04 00:00:00 Completed [facility] Meningococcal Polysaccharide (groups A, C, Y and W-135) conjugate vaccine (MCV4P) 2023-08-04 00:00:00 Completed [facility] MMR 2023-08-04 00:00:00 Completed [facility] IPV 2023-08-04 00:00:00 Completed [facility] TDAP 2023-08-04 00:00:00 Completed [facility] Varicella (varivax)(chicken pox) 2023-08-04 00:00:00 Completed [facility] Influenza Virus Vaccine Quad IM, Preserv and ABX Free 6 MO-64 YRS (FLUCELVAX) 2023-08-04 00:00:00 Completed [facility] Influenza Virus Vaccine Quad IM 3+ YRS 2023-08-04 00:00:00 Completed [facility] DTaP, Unspecified Formulation 2023-08-04 00:00:00 Completed [facility] HEPATITIS A 2023-08-04 00:00:00 Completed [facility] Hep B, Adol or Pedi Dosage 2023-08-04 00:00:00 Completed [facility] HIB 4 Dose Schedule 2023-08-04 00:00:00 Completed [facility] HPV 2023-08-04 00:00:00 Completed [facility] HPV9 2023-08-04 00:00:00 Completed [facility] Meningococcal Polysaccharide (groups A, C, Y and W-135) conjugate vaccine (MCV4P) 2023-08-04 00:00:00 Completed [facility] MMR 2023-08-04 00:00:00 Completed [facility] IPV 2023-08-04 00:00:00 Completed [facility] TDAP 2023-08-04 00:00:00 Completed [facility] Varicella (varivax)(chicken pox) 2023-08-04 00:00:00 Completed [facility] Influenza Virus Vaccine Quad IM, Preserv and ABX Free 6 MO-64 YRS (FLUCELVAX) 2023-08-04 00:00:00 Completed [facility] Influenza Virus Vaccine Quad IM 3+ YRS 2023-07-31 15:00:00 Completed [facility] DTaP, Unspecified Formulation 2023-07-31 15:00:00 Completed [facility] HEPATITIS A 2023-07-31 15:00:00 Completed [facility] Hep B, Adol or Pedi Dosage 2023-07-31 15:00:00 Completed [facility] HIB 4 Dose Schedule 2023-07-31 15:00:00 Completed [facility] HPV 2023-07-31 15:00:00 Completed [facility] HPV9 2023-07-31 15:00:00 Completed [facility] Meningococcal Polysaccharide (groups A, C, Y and W-135) conjugate vaccine (MCV4P) 2023-07-31 15:00:00 Completed [facility] MMR 2023-07-31 15:00:00 Completed [facility] IPV 2023-07-31 15:00:00 Completed [facility] TDAP 2023-07-31 15:00:00 Completed [facility] Varicella (varivax)(chicken pox) 2023-07-31 15:00:00 Completed [facility] Influenza Virus Vaccine Quad IM, Preserv and ABX Free 6 MO-64 YRS (FLUCELVAX) 2023-07-31 15:00:00 Completed [facility] Influenza Virus Vaccine Quad IM 3+ YRS 2023-07-30 00:00:00 Completed [facility] DTaP, Unspecified Formulation 2023-07-30 00:00:00 Completed [facility] HEPATITIS A 2023-07-30 00:00:00 Completed [facility] Hep B, Adol or Pedi Dosage 2023-07-30 00:00:00 Completed [facility] HIB 4 Dose Schedule 2023-07-30 00:00:00 Completed [facility] HPV 2023-07-30 00:00:00 Completed [facility] HPV9 2023-07-30 00:00:00 Completed [facility] Meningococcal Polysaccharide (groups A, C, Y and W-135) conjugate vaccine (MCV4P) 2023-07-30 00:00:00 Completed [facility] MMR 2023-07-30 00:00:00 Completed [facility] IPV 2023-07-30 00:00:00 Completed [facility] TDAP 2023-07-30 00:00:00 Completed [facility] Varicella (varivax)(chicken pox) 2023-07-30 00:00:00 Completed [facility] Influenza Virus Vaccine Quad IM, Preserv and ABX Free 6 MO-64 YRS (FLUCELVAX) 2023-07-30 00:00:00 Completed [facility] Influenza Virus Vaccine Quad IM 3+ YRS 2023-07-29 11:00:00 Completed [facility] DTaP, Unspecified Formulation 2023-07-29 11:00:00 Completed [facility] HEPATITIS A 2023-07-29 11:00:00 Completed [facility] Hep B, Adol or Pedi Dosage 2023-07-29 11:00:00 Completed [facility] HIB 4 Dose Schedule 2023-07-29 11:00:00 Completed [facility] HPV 2023-07-29 11:00:00 Completed [facility] HPV9 2023-07-29 11:00:00 Completed [facility] Meningococcal Polysaccharide (groups A, C, Y and W-135) conjugate vaccine (MCV4P) 2023-07-29 11:00:00 Completed [facility] MMR 2023-07-29 11:00:00 Completed [facility] IPV 2023-07-29 11:00:00 Completed [facility] TDAP 2023-07-29 11:00:00 Completed [facility] Varicella (varivax)(chicken pox) 2023-07-29 11:00:00 Completed [facility] Influenza Virus Vaccine Quad IM, Preserv and ABX Free 6 MO-64 YRS (FLUCELVAX) 2023-07-29 11:00:00 Completed [facility] Influenza Virus Vaccine Quad IM 3+ YRS 2023-07-29 10:30:00 Completed [facility] DTaP, Unspecified Formulation 2023-07-29 10:30:00 Completed [facility] HEPATITIS A 2023-07-29 10:30:00 Completed [facility] Hep B, Adol or Pedi Dosage 2023-07-29 10:30:00 Completed [facility] HIB 4 Dose Schedule 2023-07-29 10:30:00 Completed [facility] HPV 2023-07-29 10:30:00 Completed [facility] HPV9 2023-07-29 10:30:00 Completed [facility] Meningococcal Polysaccharide (groups A, C, Y and W-135) conjugate vaccine (MCV4P) 2023-07-29 10:30:00 Completed [facility] MMR 2023-07-29 10:30:00 Completed [facility] IPV 2023-07-29 10:30:00 Completed [facility] TDAP 2023-07-29 10:30:00 Completed [facility] Varicella (varivax)(chicken pox) 2023-07-29 10:30:00 Completed [facility] Influenza Virus Vaccine Quad IM, Preserv and ABX Free 6 MO-64 YRS (FLUCELVAX) 2023-07-29 10:30:00 Completed [facility] Influenza Virus Vaccine Quad IM 3+ YRS 2023-07-29 00:00:00 Completed [facility] DTaP, Unspecified Formulation 2023-07-29 00:00:00 Completed [facility] HEPATITIS A 2023-07-29 00:00:00 Completed [facility] Hep B, Adol or Pedi Dosage 2023-07-29 00:00:00 Completed [facility] HIB 4 Dose Schedule 2023-07-29 00:00:00 Completed [facility] HPV 2023-07-29 00:00:00 Completed [facility] HPV9 2023-07-29 00:00:00 Completed [facility] Meningococcal Polysaccharide (groups A, C, Y and W-135) conjugate vaccine (MCV4P) 2023-07-29 00:00:00 Completed [facility] MMR 2023-07-29 00:00:00 Completed [facility] IPV 2023-07-29 00:00:00 Completed [facility] TDAP 2023-07-29 00:00:00 Completed [facility] Varicella (varivax)(chicken pox) 2023-07-29 00:00:00 Completed [facility] Influenza Virus Vaccine Quad IM, Preserv and ABX Free 6 MO-64 YRS (FLUCELVAX) 2023-07-29 00:00:00 Completed [facility] Influenza Virus Vaccine Quad IM 3+ YRS 2023-07-24 10:15:00 Completed [facility] DTaP, Unspecified Formulation 2023-07-24 10:15:00 Completed [facility] HEPATITIS A 2023-07-24 10:15:00 Completed [facility] Hep B, Adol or Pedi Dosage 2023-07-24 10:15:00 Completed [facility] HIB 4 Dose Schedule 2023-07-24 10:15:00 Completed [facility] HPV 2023-07-24 10:15:00 Completed [facility] HPV9 2023-07-24 10:15:00 Completed [facility] Meningococcal Polysaccharide (groups A, C, Y and W-135) conjugate vaccine (MCV4P) 2023-07-24 10:15:00 Completed [facility] MMR 2023-07-24 10:15:00 Completed [facility] IPV 2023-07-24 10:15:00 Completed [facility] TDAP 2023-07-24 10:15:00 Completed [facility] Varicella (varivax)(chicken pox) 2023-07-24 10:15:00 Completed [facility] Influenza Virus Vaccine Quad IM, Preserv and ABX Free 6 MO-64 YRS (FLUCELVAX) 2023-07-24 10:15:00 Completed [facility] Influenza Virus Vaccine Quad IM 3+ YRS 2023-07-21 13:00:00 Completed [facility] DTaP, Unspecified Formulation 2023-07-21 13:00:00 Completed [facility] HEPATITIS A 2023-07-21 13:00:00 Completed [facility] Hep B, Adol or Pedi Dosage 2023-07-21 13:00:00 Completed [facility] HIB 4 Dose Schedule 2023-07-21 13:00:00 Completed [facility] HPV 2023-07-21 13:00:00 Completed [facility] HPV9 2023-07-21 13:00:00 Completed [facility] Meningococcal Polysaccharide (groups A, C, Y and W-135) conjugate vaccine (MCV4P) 2023-07-21 13:00:00 Completed [facility] MMR 2023-07-21 13:00:00 Completed [facility] IPV 2023-07-21 13:00:00 Completed [facility] TDAP 2023-07-21 13:00:00 Completed [facility] Varicella (varivax)(chicken pox) 2023-07-21 13:00:00 Completed [facility] Influenza Virus Vaccine Quad IM, Preserv and ABX Free 6 MO-64 YRS (FLUCELVAX) 2023-07-21 13:00:00 Completed [facility] Influenza Virus Vaccine Quad IM 3+ YRS 2023-07-21 00:00:00 Completed [facility] DTaP, Unspecified Formulation 2023-07-21 00:00:00 Completed [facility] HEPATITIS A 2023-07-21 00:00:00 Completed [facility] Hep B, Adol or Pedi Dosage 2023-07-21 00:00:00 Completed [facility] HIB 4 Dose Schedule 2023-07-21 00:00:00 Completed [facility] HPV 2023-07-21 00:00:00 Completed [facility] HPV9 2023-07-21 00:00:00 Completed [facility] Meningococcal Polysaccharide (groups A, C, Y and W-135) conjugate vaccine (MCV4P) 2023-07-21 00:00:00 Completed [facility] MMR 2023-07-21 00:00:00 Completed [facility] IPV 2023-07-21 00:00:00 Completed [facility] TDAP 2023-07-21 00:00:00 Completed [facility] Varicella (varivax)(chicken pox) 2023-07-21 00:00:00 Completed [facility] Influenza Virus Vaccine Quad IM, Preserv and ABX Free 6 MO-64 YRS (FLUCELVAX) 2023-07-21 00:00:00 Completed [facility] Influenza Virus Vaccine Quad IM 3+ YRS 2023-07-17 10:15:00 Completed [facility] DTaP, Unspecified Formulation 2023-07-17 10:15:00 Completed [facility] HEPATITIS A 2023-07-17 10:15:00 Completed [facility] Hep B, Adol or Pedi Dosage 2023-07-17 10:15:00 Completed [facility] HIB 4 Dose Schedule 2023-07-17 10:15:00 Completed [facility] HPV 2023-07-17 10:15:00 Completed [facility] HPV9 2023-07-17 10:15:00 Completed [facility] Meningococcal Polysaccharide (groups A, C, Y and W-135) conjugate vaccine (MCV4P) 2023-07-17 10:15:00 Completed [facility] MMR 2023-07-17 10:15:00 Completed [facility] IPV 2023-07-17 10:15:00 Completed [facility] TDAP 2023-07-17 10:15:00 Completed [facility] Varicella (varivax)(chicken pox) 2023-07-17 10:15:00 Completed [facility] Influenza Virus Vaccine Quad IM, Preserv and ABX Free 6 MO-64 YRS (FLUCELVAX) 2023-07-17 10:15:00 Completed [facility] Influenza Virus Vaccine Quad IM 3+ YRS 2023-07-15 15:30:00 Completed [facility] DTaP, Unspecified Formulation 2023-07-15 15:30:00 Completed [facility] HEPATITIS A 2023-07-15 15:30:00 Completed [facility] Hep B, Adol or Pedi Dosage 2023-07-15 15:30:00 Completed [facility] HIB 4 Dose Schedule 2023-07-15 15:30:00 Completed [facility] HPV 2023-07-15 15:30:00 Completed [facility] HPV9 2023-07-15 15:30:00 Completed [facility] Meningococcal Polysaccharide (groups A, C, Y and W-135) conjugate vaccine (MCV4P) 2023-07-15 15:30:00 Completed [facility] MMR 2023-07-15 15:30:00 Completed [facility] IPV 2023-07-15 15:30:00 Completed [facility] TDAP 2023-07-15 15:30:00 Completed [facility] Varicella (varivax)(chicken pox) 2023-07-15 15:30:00 Completed [facility] Influenza Virus Vaccine Quad IM, Preserv and ABX Free 6 MO-64 YRS (FLUCELVAX) 2023-07-15 15:30:00 Completed [facility] Influenza Virus Vaccine Quad IM 3+ YRS 2023-07-10 08:45:00 Completed [facility] DTaP, Unspecified Formulation 2023-07-10 08:45:00 Completed [facility] HEPATITIS A 2023-07-10 08:45:00 Completed [facility] Hep B, Adol or Pedi Dosage 2023-07-10 08:45:00 Completed [facility] HIB 4 Dose Schedule 2023-07-10 08:45:00 Completed [facility] HPV 2023-07-10 08:45:00 Completed [facility] HPV9 2023-07-10 08:45:00 Completed [facility] Meningococcal Polysaccharide (groups A, C, Y and W-135) conjugate vaccine (MCV4P) 2023-07-10 08:45:00 Completed [facility] MMR 2023-07-10 08:45:00 Completed [facility] IPV 2023-07-10 08:45:00 Completed [facility] TDAP 2023-07-10 08:45:00 Completed [facility] Varicella (varivax)(chicken pox) 2023-07-10 08:45:00 Completed [facility] Influenza Virus Vaccine Quad IM, Preserv and ABX Free 6 MO-64 YRS (FLUCELVAX) 2023-07-10 08:45:00 Completed [facility] Influenza Virus Vaccine Quad IM 3+ YRS 2023-07-10 00:00:00 Completed [facility] DTaP, Unspecified Formulation 2023-07-10 00:00:00 Completed [facility] HEPATITIS A 2023-07-10 00:00:00 Completed [facility] Hep B, Adol or Pedi Dosage 2023-07-10 00:00:00 Completed [facility] HIB 4 Dose Schedule 2023-07-10 00:00:00 Completed [facility] HPV 2023-07-10 00:00:00 Completed [facility] HPV9 2023-07-10 00:00:00 Completed [facility] Meningococcal Polysaccharide (groups A, C, Y and W-135) conjugate vaccine (MCV4P) 2023-07-10 00:00:00 Completed [facility] MMR 2023-07-10 00:00:00 Completed [facility] IPV 2023-07-10 00:00:00 Completed [facility] TDAP 2023-07-10 00:00:00 Completed [facility] Varicella (varivax)(chicken pox) 2023-07-10 00:00:00 Completed [facility] Influenza Virus Vaccine Quad IM, Preserv and ABX Free 6 MO-64 YRS (FLUCELVAX) 2023-07-10 00:00:00 Completed [facility] Influenza Virus Vaccine Quad IM 3+ YRS 2023-07-10 00:00:00 Completed [facility] DTaP, Unspecified Formulation 2023-07-10 00:00:00 Completed [facility] HEPATITIS A 2023-07-10 00:00:00 Completed [facility] Hep B, Adol or Pedi Dosage 2023-07-10 00:00:00 Completed [facility] HIB 4 Dose Schedule 2023-07-10 00:00:00 Completed [facility] HPV 2023-07-10 00:00:00 Completed [facility] HPV9 2023-07-10 00:00:00 Completed [facility] Meningococcal Polysaccharide (groups A, C, Y and W-135) conjugate vaccine (MCV4P) 2023-07-10 00:00:00 Completed [facility] MMR 2023-07-10 00:00:00 Completed [facility] IPV 2023-07-10 00:00:00 Completed [facility] TDAP 2023-07-10 00:00:00 Completed [facility] Varicella (varivax)(chicken pox) 2023-07-10 00:00:00 Completed [facility] Influenza Virus Vaccine Quad IM, Preserv and ABX Free 6 MO-64 YRS (FLUCELVAX) 2023-07-10 00:00:00 Completed [facility] Influenza Virus Vaccine Quad IM 3+ YRS 2023-07-10 00:00:00 Completed [facility] DTaP, Unspecified Formulation 2023-07-10 00:00:00 Completed [facility] HEPATITIS A 2023-07-10 00:00:00 Completed [facility] Hep B, Adol or Pedi Dosage 2023-07-10 00:00:00 Completed [facility] HIB 4 Dose Schedule 2023-07-10 00:00:00 Completed [facility] HPV 2023-07-10 00:00:00 Completed [facility] HPV9 2023-07-10 00:00:00 Completed [facility] Meningococcal Polysaccharide (groups A, C, Y and W-135) conjugate vaccine (MCV4P) 2023-07-10 00:00:00 Completed [facility] MMR 2023-07-10 00:00:00 Completed [facility] IPV 2023-07-10 00:00:00 Completed [facility] TDAP 2023-07-10 00:00:00 Completed [facility] Varicella (varivax)(chicken pox) 2023-07-10 00:00:00 Completed [facility] Influenza Virus Vaccine Quad IM, Preserv and ABX Free 6 MO-64 YRS (FLUCELVAX) 2023-07-10 00:00:00 Completed [facility] Influenza Virus Vaccine Quad IM 3+ YRS 2023-07-08 15:00:00 Completed [facility] DTaP, Unspecified Formulation 2023-07-08 15:00:00 Completed [facility] HEPATITIS A 2023-07-08 15:00:00 Completed [facility] Hep B, Adol or Pedi Dosage 2023-07-08 15:00:00 Completed [facility] HIB 4 Dose Schedule 2023-07-08 15:00:00 Completed [facility] HPV 2023-07-08 15:00:00 Completed [facility] HPV9 2023-07-08 15:00:00 Completed [facility] Meningococcal Polysaccharide (groups A, C, Y and W-135) conjugate vaccine (MCV4P) 2023-07-08 15:00:00 Completed [facility] MMR 2023-07-08 15:00:00 Completed [facility] IPV 2023-07-08 15:00:00 Completed [facility] TDAP 2023-07-08 15:00:00 Completed [facility] Varicella (varivax)(chicken pox) 2023-07-08 15:00:00 Completed [facility] Influenza Virus Vaccine Quad IM, Preserv and ABX Free 6 MO-64 YRS (FLUCELVAX) 2023-07-08 15:00:00 Completed [facility] Influenza Virus Vaccine Quad IM 3+ YRS 2023-07-04 00:00:00 Completed [facility] DTaP, Unspecified Formulation 2023-07-04 00:00:00 Completed [facility] HEPATITIS A 2023-07-04 00:00:00 Completed [facility] Hep B, Adol or Pedi Dosage 2023-07-04 00:00:00 Completed [facility] HIB 4 Dose Schedule 2023-07-04 00:00:00 Completed [facility] HPV 2023-07-04 00:00:00 Completed [facility] HPV9 2023-07-04 00:00:00 Completed [facility] Meningococcal Polysaccharide (groups A, C, Y and W-135) conjugate vaccine (MCV4P) 2023-07-04 00:00:00 Completed [facility] MMR 2023-07-04 00:00:00 Completed [facility] IPV 2023-07-04 00:00:00 Completed [facility] TDAP 2023-07-04 00:00:00 Completed [facility] Varicella (varivax)(chicken pox) 2023-07-04 00:00:00 Completed [facility] Influenza Virus Vaccine Quad IM, Preserv and ABX Free 6 MO-64 YRS (FLUCELVAX) 2023-07-04 00:00:00 Completed [facility] Influenza Virus Vaccine Quad IM 3+ YRS 2023-07-04 00:00:00 Completed [facility] DTaP, Unspecified Formulation 2023-07-04 00:00:00 Completed [facility] HEPATITIS A 2023-07-04 00:00:00 Completed [facility] Hep B, Adol or Pedi Dosage 2023-07-04 00:00:00 Completed [facility] HIB 4 Dose Schedule 2023-07-04 00:00:00 Completed [facility] HPV 2023-07-04 00:00:00 Completed [facility] HPV9 2023-07-04 00:00:00 Completed [facility] Meningococcal Polysaccharide (groups A, C, Y and W-135) conjugate vaccine (MCV4P) 2023-07-04 00:00:00 Completed [facility] MMR 2023-07-04 00:00:00 Completed [facility] IPV 2023-07-04 00:00:00 Completed [facility] TDAP 2023-07-04 00:00:00 Completed [facility] Varicella (varivax)(chicken pox) 2023-07-04 00:00:00 Completed [facility] Influenza Virus Vaccine Quad IM, Preserv and ABX Free 6 MO-64 YRS (FLUCELVAX) 2023-07-04 00:00:00 Completed [facility] Influenza Virus Vaccine Quad IM 3+ YRS 2023-07-03 10:00:00 Completed [facility] DTaP, Unspecified Formulation 2023-07-03 10:00:00 Completed [facility] HEPATITIS A 2023-07-03 10:00:00 Completed [facility] Hep B, Adol or Pedi Dosage 2023-07-03 10:00:00 Completed [facility] HIB 4 Dose Schedule 2023-07-03 10:00:00 Completed [facility] HPV 2023-07-03 10:00:00 Completed [facility] HPV9 2023-07-03 10:00:00 Completed [facility] Meningococcal Polysaccharide (groups A, C, Y and W-135) conjugate vaccine (MCV4P) 2023-07-03 10:00:00 Completed [facility] MMR 2023-07-03 10:00:00 Completed [facility] IPV 2023-07-03 10:00:00 Completed [facility] TDAP 2023-07-03 10:00:00 Completed [facility] Varicella (varivax)(chicken pox) 2023-07-03 10:00:00 Completed [facility] Influenza Virus Vaccine Quad IM, Preserv and ABX Free 6 MO-64 YRS (FLUCELVAX) 2023-07-03 10:00:00 Completed [facility] Influenza Virus Vaccine Quad IM 3+ YRS 2023-07-03 08:45:00 Completed [facility] DTaP, Unspecified Formulation 2023-07-03 08:45:00 Completed [facility] HEPATITIS A 2023-07-03 08:45:00 Completed [facility] Hep B, Adol or Pedi Dosage 2023-07-03 08:45:00 Completed [facility] HIB 4 Dose Schedule 2023-07-03 08:45:00 Completed [facility] HPV 2023-07-03 08:45:00 Completed [facility] HPV9 2023-07-03 08:45:00 Completed [facility] Meningococcal Polysaccharide (groups A, C, Y and W-135) conjugate vaccine (MCV4P) 2023-07-03 08:45:00 Completed [facility] MMR 2023-07-03 08:45:00 Completed [facility] IPV 2023-07-03 08:45:00 Completed [facility] TDAP 2023-07-03 08:45:00 Completed [facility] Varicella (varivax)(chicken pox) 2023-07-03 08:45:00 Completed [facility] Influenza Virus Vaccine Quad IM, Preserv and ABX Free 6 MO-64 YRS (FLUCELVAX) 2023-07-03 08:45:00 Completed [facility] Influenza Virus Vaccine Quad IM 3+ YRS 2023-07-02 00:00:00 Completed [facility] DTaP, Unspecified Formulation 2023-07-02 00:00:00 Completed [facility] HEPATITIS A 2023-07-02 00:00:00 Completed [facility] Hep B, Adol or Pedi Dosage 2023-07-02 00:00:00 Completed [facility] HIB 4 Dose Schedule 2023-07-02 00:00:00 Completed [facility] HPV 2023-07-02 00:00:00 Completed [facility] HPV9 2023-07-02 00:00:00 Completed [facility] Meningococcal Polysaccharide (groups A, C, Y and W-135) conjugate vaccine (MCV4P) 2023-07-02 00:00:00 Completed [facility] MMR 2023-07-02 00:00:00 Completed [facility] IPV 2023-07-02 00:00:00 Completed [facility] TDAP 2023-07-02 00:00:00 Completed [facility] Varicella (varivax)(chicken pox) 2023-07-02 00:00:00 Completed [facility] Influenza Virus Vaccine Quad IM, Preserv and ABX Free 6 MO-64 YRS (FLUCELVAX) 2023-07-02 00:00:00 Completed [facility] Influenza Virus Vaccine Quad IM 3+ YRS 2023-07-01 22:57:00 Completed [facility] DTaP, Unspecified Formulation 2023-07-01 22:57:00 Completed [facility] HEPATITIS A 2023-07-01 22:57:00 Completed [facility] Hep B, Adol or Pedi Dosage 2023-07-01 22:57:00 Completed [facility] HIB 4 Dose Schedule 2023-07-01 22:57:00 Completed [facility] HPV 2023-07-01 22:57:00 Completed [facility] HPV9 2023-07-01 22:57:00 Completed [facility] Meningococcal Polysaccharide (groups A, C, Y and W-135) conjugate vaccine (MCV4P) 2023-07-01 22:57:00 Completed [facility] MMR 2023-07-01 22:57:00 Completed [facility] IPV 2023-07-01 22:57:00 Completed [facility] TDAP 2023-07-01 22:57:00 Completed [facility] Varicella (varivax)(chicken pox) 2023-07-01 22:57:00 Completed [facility] Influenza Virus Vaccine Quad IM, Preserv and ABX Free 6 MO-64 YRS (FLUCELVAX) 2023-07-01 22:57:00 Completed [facility] Influenza Virus Vaccine Quad IM 3+ YRS 2023-07-01 00:00:00 Completed [facility] DTaP, Unspecified Formulation 2023-07-01 00:00:00 Completed [facility] HEPATITIS A 2023-07-01 00:00:00 Completed [facility] Hep B, Adol or Pedi Dosage 2023-07-01 00:00:00 Completed [facility] HIB 4 Dose Schedule 2023-07-01 00:00:00 Completed [facility] HPV 2023-07-01 00:00:00 Completed [facility] HPV9 2023-07-01 00:00:00 Completed [facility] Meningococcal Polysaccharide (groups A, C, Y and W-135) conjugate vaccine (MCV4P) 2023-07-01 00:00:00 Completed [facility] MMR 2023-07-01 00:00:00 Completed [facility] IPV 2023-07-01 00:00:00 Completed [facility] TDAP 2023-07-01 00:00:00 Completed [facility] Varicella (varivax)(chicken pox) 2023-07-01 00:00:00 Completed [facility] Influenza Virus Vaccine Quad IM, Preserv and ABX Free 6 MO-64 YRS (FLUCELVAX) 2023-07-01 00:00:00 Completed [facility] Influenza Virus Vaccine Quad IM 3+ YRS 2023-06-26 08:45:00 Completed [facility] DTaP, Unspecified Formulation 2023-06-26 08:45:00 Completed [facility] HEPATITIS A 2023-06-26 08:45:00 Completed [facility] Hep B, Adol or Pedi Dosage 2023-06-26 08:45:00 Completed [facility] HIB 4 Dose Schedule 2023-06-26 08:45:00 Completed [facility] HPV 2023-06-26 08:45:00 Completed [facility] HPV9 2023-06-26 08:45:00 Completed [facility] Meningococcal Polysaccharide (groups A, C, Y and W-135) conjugate vaccine (MCV4P) 2023-06-26 08:45:00 Completed [facility] MMR 2023-06-26 08:45:00 Completed [facility] IPV 2023-06-26 08:45:00 Completed [facility] TDAP 2023-06-26 08:45:00 Completed [facility] Varicella (varivax)(chicken pox) 2023-06-26 08:45:00 Completed [facility] Influenza Virus Vaccine Quad IM, Preserv and ABX Free 6 MO-64 YRS (FLUCELVAX) 2023-06-26 08:45:00 Completed [facility] TDAP 2023-06-26 00:00:00 Completed Influenza Virus Vaccine Quad IM 3+ YRS 2023-06-24 00:00:00 Completed [facility] DTaP, Unspecified Formulation 2023-06-24 00:00:00 Completed [facility] HEPATITIS A 2023-06-24 00:00:00 Completed [facility] Hep B, Adol or Pedi Dosage 2023-06-24 00:00:00 Completed [facility] HIB 4 Dose Schedule 2023-06-24 00:00:00 Completed [facility] HPV 2023-06-24 00:00:00 Completed [facility] HPV9 2023-06-24 00:00:00 Completed [facility] Meningococcal Polysaccharide (groups A, C, Y and W-135) conjugate vaccine (MCV4P) 2023-06-24 00:00:00 Completed [facility] MMR 2023-06-24 00:00:00 Completed [facility] IPV 2023-06-24 00:00:00 Completed [facility] TDAP 2023-06-24 00:00:00 Completed [facility] Varicella (varivax)(chicken pox) 2023-06-24 00:00:00 Completed [facility] Influenza Virus Vaccine Quad IM, Preserv and ABX Free 6 MO-64 YRS (FLUCELVAX) 2023-06-24 00:00:00 Completed [facility] Influenza Virus Vaccine Quad IM 3+ YRS 2023-06-20 00:00:00 Completed [facility] DTaP, Unspecified Formulation 2023-06-20 00:00:00 Completed [facility] HEPATITIS A 2023-06-20 00:00:00 Completed [facility] Hep B, Adol or Pedi Dosage 2023-06-20 00:00:00 Completed [facility] HIB 4 Dose Schedule 2023-06-20 00:00:00 Completed [facility] HPV 2023-06-20 00:00:00 Completed [facility] HPV9 2023-06-20 00:00:00 Completed [facility] Meningococcal Polysaccharide (groups A, C, Y and W-135) conjugate vaccine (MCV4P) 2023-06-20 00:00:00 Completed [facility] MMR 2023-06-20 00:00:00 Completed [facility] IPV 2023-06-20 00:00:00 Completed [facility] TDAP 2023-06-20 00:00:00 Completed [facility] Varicella (varivax)(chicken pox) 2023-06-20 00:00:00 Completed [facility] Influenza Virus Vaccine Quad IM, Preserv and ABX Free 6 MO-64 YRS (FLUCELVAX) 2023-06-20 00:00:00 Completed [facility] Influenza Virus Vaccine Quad IM 3+ YRS 2023-06-17 00:00:00 Completed [facility] DTaP, Unspecified Formulation 2023-06-17 00:00:00 Completed [facility] HEPATITIS A 2023-06-17 00:00:00 Completed [facility] Hep B, Adol or Pedi Dosage 2023-06-17 00:00:00 Completed [facility] HIB 4 Dose Schedule 2023-06-17 00:00:00 Completed [facility] HPV 2023-06-17 00:00:00 Completed [facility] HPV9 2023-06-17 00:00:00 Completed [facility] Meningococcal Polysaccharide (groups A, C, Y and W-135) conjugate vaccine (MCV4P) 2023-06-17 00:00:00 Completed [facility] MMR 2023-06-17 00:00:00 Completed [facility] IPV 2023-06-17 00:00:00 Completed [facility] TDAP 2023-06-17 00:00:00 Completed [facility] Varicella (varivax)(chicken pox) 2023-06-17 00:00:00 Completed [facility] Influenza Virus Vaccine Quad IM, Preserv and ABX Free 6 MO-64 YRS (FLUCELVAX) 2023-06-17 00:00:00 Completed [facility] Influenza Virus Vaccine Quad IM 3+ YRS 2023-06-11 09:45:00 Completed [facility] DTaP, Unspecified Formulation 2023-06-11 09:45:00 Completed [facility] HEPATITIS A 2023-06-11 09:45:00 Completed [facility] Hep B, Adol or Pedi Dosage 2023-06-11 09:45:00 Completed [facility] HIB 4 Dose Schedule 2023-06-11 09:45:00 Completed [facility] HPV 2023-06-11 09:45:00 Completed [facility] HPV9 2023-06-11 09:45:00 Completed [facility] Meningococcal Polysaccharide (groups A, C, Y and W-135) conjugate vaccine (MCV4P) 2023-06-11 09:45:00 Completed [facility] MMR 2023-06-11 09:45:00 Completed [facility] IPV 2023-06-11 09:45:00 Completed [facility] TDAP 2023-06-11 09:45:00 Completed [facility] Varicella (varivax)(chicken pox) 2023-06-11 09:45:00 Completed [facility] Influenza Virus Vaccine Quad IM, Preserv and ABX Free 6 MO-64 YRS (FLUCELVAX) 2023-06-11 09:45:00 Completed [facility] Influenza Virus Vaccine Quad IM 3+ YRS 2023-05-30 00:00:00 Completed [facility] DTaP, Unspecified Formulation 2023-05-30 00:00:00 Completed [facility] HEPATITIS A 2023-05-30 00:00:00 Completed [facility] Hep B, Adol or Pedi Dosage 2023-05-30 00:00:00 Completed [facility] HIB 4 Dose Schedule 2023-05-30 00:00:00 Completed [facility] HPV 2023-05-30 00:00:00 Completed [facility] HPV9 2023-05-30 00:00:00 Completed [facility] Meningococcal Polysaccharide (groups A, C, Y and W-135) conjugate vaccine (MCV4P) 2023-05-30 00:00:00 Completed [facility] MMR 2023-05-30 00:00:00 Completed [facility] IPV 2023-05-30 00:00:00 Completed [facility] TDAP 2023-05-30 00:00:00 Completed [facility] Varicella (varivax)(chicken pox) 2023-05-30 00:00:00 Completed [facility] Influenza Virus Vaccine Quad IM, Preserv and ABX Free 6 MO-64 YRS (FLUCELVAX) 2023-05-30 00:00:00 Completed [facility] Influenza Virus Vaccine Quad IM 3+ YRS 2023-05-29 09:00:00 Completed [facility] HPV9 2023-05-29 09:00:00 Completed [facility] TDAP 2023-05-29 09:00:00 Completed [facility] Influenza Virus Vaccine Quad IM, Preserv and ABX Free 6 MO-64 YRS (FLUCELVAX) 2023-05-29 09:00:00 Completed [facility] DTaP, Unspecified Formulation 2023-05-29 09:00:00 Completed [facility] HEPATITIS A 2023-05-29 09:00:00 Completed [facility] Hep B, Adol or Pedi Dosage 2023-05-29 09:00:00 Completed [facility] HIB 4 Dose Schedule 2023-05-29 09:00:00 Completed [facility] HPV 2023-05-29 09:00:00 Completed [facility] Meningococcal Polysaccharide (groups A, C, Y and W-135) conjugate vaccine (MCV4P) 2023-05-29 09:00:00 Completed [facility] MMR 2023-05-29 09:00:00 Completed [facility] IPV 2023-05-29 09:00:00 Completed [facility] Varicella (varivax)(chicken pox) 2023-05-29 09:00:00 Completed [facility] Influenza Virus Vaccine Quad IM 3+ YRS 2023-05-29 00:00:00 Completed [facility] DTaP, Unspecified Formulation 2023-05-29 00:00:00 Completed [facility] HEPATITIS A 2023-05-29 00:00:00 Completed [facility] Hep B, Adol or Pedi Dosage 2023-05-29 00:00:00 Completed [facility] HIB 4 Dose Schedule 2023-05-29 00:00:00 Completed [facility] HPV 2023-05-29 00:00:00 Completed [facility] HPV9 2023-05-29 00:00:00 Completed [facility] Meningococcal Polysaccharide (groups A, C, Y and W-135) conjugate vaccine (MCV4P) 2023-05-29 00:00:00 Completed [facility] MMR 2023-05-29 00:00:00 Completed [facility] IPV 2023-05-29 00:00:00 Completed [facility] TDAP 2023-05-29 00:00:00 Completed [facility] Varicella (varivax)(chicken pox) 2023-05-29 00:00:00 Completed [facility] Influenza Virus Vaccine Quad IM, Preserv and ABX Free 6 MO-64 YRS (FLUCELVAX) 2023-05-29 00:00:00 Completed [facility] Influenza Virus Vaccine Quad IM 3+ YRS 2023-05-27 11:00:00 Completed [facility] DTaP, Unspecified Formulation 2023-05-27 11:00:00 Completed [facility] HEPATITIS A 2023-05-27 11:00:00 Completed [facility] Hep B, Adol or Pedi Dosage 2023-05-27 11:00:00 Completed [facility] HIB 4 Dose Schedule 2023-05-27 11:00:00 Completed [facility] HPV 2023-05-27 11:00:00 Completed [facility] HPV9 2023-05-27 11:00:00 Completed [facility] Meningococcal Polysaccharide (groups A, C, Y and W-135) conjugate vaccine (MCV4P) 2023-05-27 11:00:00 Completed [facility] MMR 2023-05-27 11:00:00 Completed [facility] IPV 2023-05-27 11:00:00 Completed [facility] TDAP 2023-05-27 11:00:00 Completed [facility] Varicella (varivax)(chicken pox) 2023-05-27 11:00:00 Completed [facility] Influenza Virus Vaccine Quad IM, Preserv and ABX Free 6 MO-64 YRS (FLUCELVAX) 2023-05-27 11:00:00 Completed [facility] Influenza Virus Vaccine Quad IM 3+ YRS 2023-05-26 00:00:00 Completed [facility] DTaP, Unspecified Formulation 2023-05-26 00:00:00 Completed [facility] HEPATITIS A 2023-05-26 00:00:00 Completed [facility] Hep B, Adol or Pedi Dosage 2023-05-26 00:00:00 Completed [facility] HIB 4 Dose Schedule 2023-05-26 00:00:00 Completed [facility] HPV 2023-05-26 00:00:00 Completed [facility] HPV9 2023-05-26 00:00:00 Completed [facility] Meningococcal Polysaccharide (groups A, C, Y and W-135) conjugate vaccine (MCV4P) 2023-05-26 00:00:00 [facility]pleted [facility] [facility] MMR 2023-05-26 00:00:00 Completed [facility] IPV 2023-05-26 00:00:00 Completed [facility] TDAP 2023-05-26 00:00:00 Completed [facility] Varicella (varivax)(chicken pox) 2023-05-26 00:00:00 Completed [facility] Influenza Virus Vaccine Quad IM, Preserv and ABX Free 6 MO-64 YRS (FLUCELVAX) 2023-05-26 00:00:00 Completed [facility] Influenza Virus Vaccine Quad IM 3+ YRS 2023-05-14 09:30:00 Completed [facility] DTaP, Unspecified Formulation 2023-05-14 09:30:00 Completed [facility] HEPATITIS A 2023-05-14 09:30:00 Completed [facility] Hep B, Adol or Pedi Dosage 2023-05-14 09:30:00 Completed [facility] HIB 4 Dose Schedule 2023-05-14 09:30:00 Completed [facility] HPV 2023-05-14 09:30:00 Completed [facility] HPV9 2023-05-14 09:30:00 Completed [facility] Meningococcal Polysaccharide (groups A, C, Y and W-135) conjugate vaccine (MCV4P) 2023-05-14 09:30:00 Completed [facility] MMR 2023-05-14 09:30:00 Completed [facility] IPV 2023-05-14 09:30:00 Completed [facility] TDAP 2023-05-14 09:30:00 Completed [facility] Varicella (varivax)(chicken pox) 2023-05-14 09:30:00 Completed [facility] Influenza Virus Vaccine Quad IM, Preserv and ABX Free 6 MO-64 YRS (FLUCELVAX) 2023-05-14 09:30:00 Completed [facility] Influenza Virus Vaccine Quad IM 3+ YRS 2023-05-14 00:00:00 Completed [facility] DTaP, Unspecified Formulation 2023-05-14 00:00:00 Completed [facility] HEPATITIS A 2023-05-14 00:00:00 Completed [facility] Hep B, Adol or Pedi Dosage 2023-05-14 00:00:00 Completed [facility] HIB 4 Dose Schedule 2023-05-14 00:00:00 Completed [facility] HPV 2023-05-14 00:00:00 Completed [facility] HPV9 2023-05-14 00:00:00 Completed [facility] Meningococcal Polysaccharide (groups A, C, Y and W-135) conjugate vaccine (MCV4P) 2023-05-14 00:00:00 Completed [facility] MMR 2023-05-14 00:00:00 Completed [facility] IPV 2023-05-14 00:00:00 Completed [facility] TDAP 2023-05-14 00:00:00 Completed [facility] Varicella (varivax)(chicken pox) 2023-05-14 00:00:00 Completed [facility] Influenza Virus Vaccine Quad IM, Preserv and ABX Free 6 MO-64 YRS (FLUCELVAX) 2023-05-14 00:00:00 Completed [facility] Influenza Virus Vaccine Quad IM 3+ YRS 2023-05-02 00:00:00 Completed [facility] DTaP, Unspecified Formulation 2023-05-02 00:00:00 Completed [facility] HEPATITIS A 2023-05-02 00:00:00 Completed [facility] Hep B, Adol or Pedi Dosage 2023-05-02 00:00:00 Completed [facility] HIB 4 Dose Schedule 2023-05-02 00:00:00 Completed [facility] HPV 2023-05-02 00:00:00 Completed [facility] HPV9 2023-05-02 00:00:00 Completed [facility] Meningococcal Polysaccharide (groups A, C, Y and W-135) conjugate vaccine (MCV4P) 2023-05-02 00:00:00 Completed [facility] MMR 2023-05-02 00:00:00 Completed [facility] IPV 2023-05-02 00:00:00 Completed [facility] TDAP 2023-05-02 00:00:00 Completed [facility] Varicella (varivax)(chicken pox) 2023-05-02 00:00:00 Completed [facility] Influenza Virus Vaccine Quad IM, Preserv and ABX Free 6 MO-64 YRS (FLUCELVAX) 2023-05-02 00:00:00 Completed [facility] Influenza Virus Vaccine Quad IM 3+ YRS 2023-05-01 13:00:00 Completed [facility] DTaP, Unspecified Formulation 2023-05-01 13:00:00 Completed [facility] HEPATITIS A 2023-05-01 13:00:00 Completed [facility] Hep B, Adol or Pedi Dosage 2023-05-01 13:00:00 Completed [facility] HIB 4 Dose Schedule 2023-05-01 13:00:00 Completed [facility] HPV 2023-05-01 13:00:00 Completed [facility] HPV9 2023-05-01 13:00:00 Completed [facility] Meningococcal Polysaccharide (groups A, C, Y and W-135) conjugate vaccine (MCV4P) 2023-05-01 13:00:00 Completed [facility] MMR 2023-05-01 13:00:00 Completed [facility] IPV 2023-05-01 13:00:00 Completed [facility] TDAP 2023-05-01 13:00:00 Completed [facility] Varicella (varivax)(chicken pox) 2023-05-01 13:00:00 Completed [facility] Influenza Virus Vaccine Quad IM, Preserv and ABX Free 6 MO-64 YRS (FLUCELVAX) 2023-05-01 13:00:00 Completed [facility] Influenza Virus Vaccine Quad IM 3+ YRS 2023-04-30 00:00:00 Completed [facility] DTaP, Unspecified Formulation 2023-04-30 00:00:00 Completed [facility] HEPATITIS A 2023-04-30 00:00:00 Completed [facility] Hep B, Adol or Pedi Dosage 2023-04-30 00:00:00 Completed [facility] HIB 4 Dose Schedule 2023-04-30 00:00:00 Completed [facility] HPV 2023-04-30 00:00:00 Completed [facility] HPV9 2023-04-30 00:00:00 Completed [facility] Meningococcal Polysaccharide (groups A, C, Y and W-135) conjugate vaccine (MCV4P) 2023-04-30 00:00:00 Completed [facility] MMR 2023-04-30 00:00:00 Completed [facility] IPV 2023-04-30 00:00:00 Completed [facility] TDAP 2023-04-30 00:00:00 Completed [facility] Varicella (varivax)(chicken pox) 2023-04-30 00:00:00 Completed [facility] Influenza Virus Vaccine Quad IM, Preserv and ABX Free 6 MO-64 YRS (FLUCELVAX) 2023-04-30 00:00:00 Completed [facility] Influenza Virus Vaccine Quad IM 3+ YRS 2023-04-29 14:00:00 Completed [facility] DTaP, Unspecified Formulation 2023-04-29 14:00:00 Completed [facility] HEPATITIS A 2023-04-29 14:00:00 Completed [facility] Hep B, Adol or Pedi Dosage 2023-04-29 14:00:00 Completed [facility] HIB 4 Dose Schedule 2023-04-29 14:00:00 Completed [facility] HPV 2023-04-29 14:00:00 Completed [facility] HPV9 2023-04-29 14:00:00 Completed [facility] Meningococcal Polysaccharide (groups A, C, Y and W-135) conjugate vaccine (MCV4P) 2023-04-29 14:00:00 Completed [facility] MMR 2023-04-29 14:00:00 Completed [facility] IPV 2023-04-29 14:00:00 Completed [facility] TDAP 2023-04-29 14:00:00 Completed [facility] Varicella (varivax)(chicken pox) 2023-04-29 14:00:00 Completed [facility] Influenza Virus Vaccine Quad IM, Preserv and ABX Free 6 MO-64 YRS (FLUCELVAX) 2023-04-29 14:00:00 Completed [facility] Influenza Virus Vaccine Quad IM 3+ YRS 2023-04-17 10:00:00 Completed [facility] DTaP, Unspecified Formulation 2023-04-17 10:00:00 Completed [facility] HEPATITIS A 2023-04-17 10:00:00 Completed [facility] Hep B, Adol or Pedi Dosage 2023-04-17 10:00:00 Completed [facility] HIB 4 Dose Schedule 2023-04-17 10:00:00 Completed [facility] HPV 2023-04-17 10:00:00 Completed [facility] HPV9 2023-04-17 10:00:00 Completed [facility] Meningococcal Polysaccharide (groups A, C, Y and W-135) conjugate vaccine (MCV4P) 2023-04-17 10:00:00 Completed [facility] MMR 2023-04-17 10:00:00 Completed [facility] IPV 2023-04-17 10:00:00 Completed [facility] TDAP 2023-04-17 10:00:00 Completed [facility] Varicella (varivax)(chicken pox) 2023-04-17 10:00:00 Completed [facility] Influenza Virus Vaccine Quad IM, Preserv and ABX Free 6 MO-64 YRS (FLUCELVAX) 2023-04-17 10:00:00 Completed [facility] Influenza Virus Vaccine Quad IM 3+ YRS 2023-04-17 00:00:00 Completed [facility] DTaP, Unspecified Formulation 2023-04-17 00:00:00 Completed [facility] HEPATITIS A 2023-04-17 00:00:00 Completed [facility] Hep B, Adol or Pedi Dosage 2023-04-17 00:00:00 Completed [facility] HIB 4 Dose Schedule 2023-04-17 00:00:00 Completed [facility] HPV 2023-04-17 00:00:00 Completed [facility] HPV9 2023-04-17 00:00:00 Completed [facility] Meningococcal Polysaccharide (groups A, C, Y and W-135) conjugate vaccine (MCV4P) 2023-04-17 00:00:00 Completed [facility] MMR 2023-04-17 00:00:00 Completed [facility] IPV 2023-04-17 00:00:00 Completed [facility] TDAP 2023-04-17 00:00:00 Completed [facility] Varicella (varivax)(chicken pox) 2023-04-17 00:00:00 Completed [facility] Influenza Virus Vaccine Quad IM, Preserv and ABX Free 6 MO-64 YRS (FLUCELVAX) 2023-04-17 00:00:00 Completed [facility] Influenza Virus Vaccine Quad IM 3+ YRS 2023-04-07 00:00:00 Completed [facility] DTaP, Unspecified Formulation 2023-04-07 00:00:00 Completed [facility] HEPATITIS A 2023-04-07 00:00:00 Completed [facility] Hep B, Adol or Pedi Dosage 2023-04-07 00:00:00 Completed [facility] HIB 4 Dose Schedule 2023-04-07 00:00:00 Completed [facility] HPV 2023-04-07 00:00:00 Completed [facility] HPV9 2023-04-07 00:00:00 Completed [facility] Meningococcal Polysaccharide (groups A, C, Y and W-135) conjugate vaccine (MCV4P) 2023-04-07 00:00:00 Completed [facility] MMR 2023-04-07 00:00:00 Completed [facility] IPV 2023-04-07 00:00:00 Completed [facility] TDAP 2023-04-07 00:00:00 Completed [facility] Varicella (varivax)(chicken pox) 2023-04-07 00:00:00 Completed [facility] Influenza Virus Vaccine Quad IM, Preserv and ABX Free 6 MO-64 YRS (FLUCELVAX) 2023-04-07 00:00:00 Completed [facility] Influenza Virus Vaccine Quad IM 3+ YRS 2023-04-01 10:30:00 Completed [facility] DTaP, Unspecified Formulation 2023-04-01 10:30:00 Completed [facility] HEPATITIS A 2023-04-01 10:30:00 Completed [facility] Hep B, Adol or Pedi Dosage 2023-04-01 10:30:00 Completed [facility] HIB 4 Dose Schedule 2023-04-01 10:30:00 Completed [facility] HPV 2023-04-01 10:30:00 Completed [facility] HPV9 2023-04-01 10:30:00 Completed [facility] Meningococcal Polysaccharide (groups A, C, Y and W-135) conjugate vaccine (MCV4P) 2023-04-01 10:30:00 Completed [facility] MMR 2023-04-01 10:30:00 Completed [facility] IPV 2023-04-01 10:30:00 Completed [facility] TDAP 2023-04-01 10:30:00 Completed [facility] Varicella (varivax)(chicken pox) 2023-04-01 10:30:00 Completed [facility] Influenza Virus Vaccine Quad IM, Preserv and ABX Free 6 MO-64 YRS (FLUCELVAX) 2023-04-01 10:30:00 Completed [facility] Influenza Virus Vaccine Quad IM 3+ YRS 2023-03-31 10:30:00 Completed [facility] DTaP, Unspecified Formulation 2023-03-31 10:30:00 Completed [facility] HEPATITIS A 2023-03-31 10:30:00 Completed [facility] Hep B, Adol or Pedi Dosage 2023-03-31 10:30:00 Completed [facility] HIB 4 Dose Schedule 2023-03-31 10:30:00 Completed [facility] HPV 2023-03-31 10:30:00 Completed [facility] HPV9 2023-03-31 10:30:00 Completed [facility] Meningococcal Polysaccharide (groups A, C, Y and W-135) conjugate vaccine (MCV4P) 2023-03-31 10:30:00 Completed [facility] MMR 2023-03-31 10:30:00 Completed [facility] IPV 2023-03-31 10:30:00 Completed [facility] TDAP 2023-03-31 10:30:00 Completed [facility] Varicella (varivax)(chicken pox) 2023-03-31 10:30:00 Completed [facility] Influenza Virus Vaccine Quad IM, Preserv and ABX Free 6 MO-64 YRS (FLUCELVAX) 2023-03-31 10:30:00 Completed [facility] Influenza Virus Vaccine Quad IM 3+ YRS 2023-03-26 00:00:00 Completed [facility] DTaP, Unspecified Formulation 2023-03-26 00:00:00 Completed [facility] HEPATITIS A 2023-03-26 00:00:00 Completed [facility] Hep B, Adol or Pedi Dosage 2023-03-26 00:00:00 Completed [facility] HIB 4 Dose Schedule 2023-03-26 00:00:00 Completed [facility] HPV 2023-03-26 00:00:00 Completed [facility] HPV9 2023-03-26 00:00:00 Completed [facility] Meningococcal Polysaccharide (groups A, C, Y and W-135) conjugate vaccine (MCV4P) 2023-03-26 00:00:00 Completed [facility] MMR 2023-03-26 00:00:00 Completed [facility] IPV 2023-03-26 00:00:00 Completed [facility] TDAP 2023-03-26 00:00:00 Completed [facility] Varicella (varivax)(chicken pox) 2023-03-26 00:00:00 Completed [facility] Influenza Virus Vaccine Quad IM, Preserv and ABX Free 6 MO-64 YRS (FLUCELVAX) 2023-03-26 00:00:00 Completed [facility] Influenza Virus Vaccine Quad IM 3+ YRS 2023-03-20 10:45:00 Completed [facility] DTaP, Unspecified Formulation 2023-03-20 10:45:00 Completed [facility] HEPATITIS A 2023-03-20 10:45:00 Completed [facility] Hep B, Adol or Pedi Dosage 2023-03-20 10:45:00 Completed [facility] HIB 4 Dose Schedule 2023-03-20 10:45:00 Completed [facility] HPV 2023-03-20 10:45:00 Completed [facility] HPV9 2023-03-20 10:45:00 Completed [facility] Meningococcal Polysaccharide (groups A, C, Y and W-135) conjugate vaccine (MCV4P) 2023-03-20 10:45:00 Completed [facility] MMR 2023-03-20 10:45:00 Completed [facility] IPV 2023-03-20 10:45:00 Completed [facility] TDAP 2023-03-20 10:45:00 Completed [facility] Varicella (varivax)(chicken pox) 2023-03-20 10:45:00 Completed [facility] Influenza Virus Vaccine Quad IM, Preserv and ABX Free 6 MO-64 YRS (FLUCELVAX) 2023-03-20 10:45:00 Completed [facility] Influenza Virus Vaccine Quad IM 3+ YRS 2023-03-20 10:30:00 Completed [facility] DTaP, Unspecified Formulation 2023-03-20 10:30:00 Completed [facility] HEPATITIS A 2023-03-20 10:30:00 Completed [facility] Hep B, Adol or Pedi Dosage 2023-03-20 10:30:00 Completed [facility] HIB 4 Dose Schedule 2023-03-20 10:30:00 Completed [facility] HPV 2023-03-20 10:30:00 Completed [facility] HPV9 2023-03-20 10:30:00 Completed [facility] Meningococcal Polysaccharide (groups A, C, Y and W-135) conjugate vaccine (MCV4P) 2023-03-20 10:30:00 Completed [facility] MMR 2023-03-20 10:30:00 Completed [facility] IPV 2023-03-20 10:30:00 Completed [facility] TDAP 2023-03-20 10:30:00 Completed [facility] Varicella (varivax)(chicken pox) 2023-03-20 10:30:00 Completed [facility] Influenza Virus Vaccine Quad IM, Preserv and ABX Free 6 MO-64 YRS (FLUCELVAX) 2023-03-20 10:30:00 Completed [facility] Influenza Virus Vaccine Quad IM 3+ YRS 2023-03-20 00:00:00 Completed [facility] DTaP, Unspecified Formulation 2023-03-20 00:00:00 Completed [facility] HEPATITIS A 2023-03-20 00:00:00 Completed [facility] Hep B, Adol or Pedi Dosage 2023-03-20 00:00:00 Completed [facility] HIB 4 Dose Schedule 2023-03-20 00:00:00 Completed [facility] Influenza Virus Vaccine Quad IM, Preserv and ABX Free 6 MO-64 YRS (FLUCELVAX) 2023-03-20 00:00:00 Completed HPV 2023-03-20 00:00:00 Completed [facility] HPV9 2023-03-20 00:00:00 Completed [facility] Meningococcal Polysaccharide (groups A, C, Y and W-135) conjugate vaccine (MCV4P) 2023-03-20 00:00:00 Completed [facility] MMR 2023-03-20 00:00:00 Completed [facility] IPV 2023-03-20 00:00:00 Completed [facility] TDAP 2023-03-20 00:00:00 Completed [facility] Varicella (varivax)(chicken pox) 2023-03-20 00:00:00 Completed [facility] Influenza Virus Vaccine Quad IM, Preserv and ABX Free 6 MO-64 YRS (FLUCELVAX) 2023-03-20 00:00:00 Completed [facility] Influenza Virus Vaccine Quad IM 3+ YRS 2017-07-28 00:00:00 Completed [facility] Influenza Virus Vaccine Quad IM 3+ YRS 2017-07-28 00:00:00 Completed [facility] Influenza Virus Vaccine Quad IM 3+ YRS 2017-07-28 00:00:00 Completed [facility] Influenza Virus Vaccine Quad IM 3+ YRS 2017-07-28 00:00:00 Completed [facility] Influenza Virus Vaccine Quad IM 3+ YRS 2017-07-28 00:00:00 Completed [facility] Influenza Virus Vaccine Quad IM 3+ YRS 2017-07-28 00:00:00 Completed [facility] Influenza Virus Vaccine Quad IM 3+ YRS 2017-07-28 00:00:00 Completed [facility] Influenza Virus Vaccine Quad IM 3+ YRS 2017-07-28 00:00:00 Completed [facility] Influenza Virus Vaccine Quad IM 3+ YRS 2017-07-28 00:00:00 Completed [facility] Influenza Virus Vaccine Quad IM 3+ YRS 2017-07-28 00:00:00 Completed [facility] Influenza Virus Vaccine Quad IM 3+ YRS 2017-07-28 00:00:00 Completed [facility] Influenza Virus Vaccine Quad IM 3+ YRS 2017-07-28 00:00:00 Completed [facility] Influenza Virus Vaccine Quad IM 3+ YRS 2017-07-28 00:00:00 Completed [facility] Influenza Virus Vaccine Quad IM 3+ YRS 2017-07-28 00:00:00 Completed [facility] Influenza Virus Vaccine Quad IM 3+ YRS 2017-07-28 00:00:00 Completed [facility] Influenza Virus Vaccine Quad IM 3+ YRS 2017-07-28 00:00:00 Completed [facility] Influenza Virus Vaccine Quad IM 3+ YRS 2017-07-28 00:00:00 Completed [facility] Influenza Virus Vaccine Quad IM 3+ YRS 2017-07-28 00:00:00 Completed [facility] Influenza Virus Vaccine Quad IM 3+ YRS 2017-07-28 00:00:00 Completed [facility] HPV9 2016-05-01 00:00:00 Completed Meningococcal Polysaccharide (groups A, C, Y and W-135) conjugate vaccine (MCV4P) 2016-05-01 00:00:00 Completed HPV 2015-02-01 00:00:00 Completed HPV 2014-02-02 00:00:00 Completed HEPATITIS A 2013-01-25 00:00:00 Completed HPV 2013-01-25 00:00:00 Completed HEPATITIS A 2011-02-11 00:00:00 Completed HEPATITIS A 2010-01-31 00:00:00 Completed Meningococcal Polysaccharide (groups A, C, Y and W-135) conjugate vaccine (MCV4P) 2010-01-31 00:00:00 Completed TDAP 2010-01-31 00:00:00 Completed Varicella (varivax)(chicken pox) 2007-02-03 00:00:00 Completed DTaP, Unspecified Formulation 2004-02-01 00:00:00 Completed MMR 2004-02-01 00:00:00 Completed IPV 2004-02-01 00:00:00 Completed Varicella (varivax)(chicken pox) 2002-03-22 00:00:00 Completed Varicella (varivax)(chicken pox) 2001-09-23 00:00:00 Completed DTaP, Unspecified Formulation 2001-01-26 00:00:00 Completed [facility] HIB 4 Dose Schedule 2001-01-26 00:00:00 Completed MMR 2001-01-26 00:00:00 Completed DTaP, Unspecified Formulation 2000 00:00:00 Completed Hep B, Adol or Pedi Dosage 2000 00:00:00 Completed HIB 4 Dose Schedule 2000 00:00:00 Completed IPV 2000 00:00:00 Completed DTaP, Unspecified Formulation 2000 00:00:00 Completed HIB 4 Dose Schedule 2000 00:00:00 Completed IPV 2000 00:00:00 Completed DTaP, Unspecified Formulation 2000 00:00:00 Completed Hep B, Adol or Pedi Dosage 2000 00:00:00 Completed HIB 4 Dose Schedule 2000 00:00:00 Completed IPV 2000 00:00:00 Completed Hep B, Adol or Pedi Dosage 2000 00:00:00 Completed Vital Signs Vital Name Observation Time Observation Value Comments S ource Systolic blood pressure 2023-09-01 15:11:00 115 mm[Hg] [facility] Diastolic blood pressure 2023-09-01 15:11:00 75 mm[Hg] [facility] Heart rate 2023-09-01 15:11:00 66 /min [facility] Body temperature 2023-09-01 15:11:00 36.22 Lani [facility] Respiratory rate 2023-09-01 15:11:00 17 /min [facility] Body height 2023-09-01 15:11:00 149.9 cm [facility] Body weight 2023-09-01 15:11:00 80.695 kg [facility] BMI 2023-09-01 15:11:00 35.93 kg/m2 [facility] Systolic blood pressure 2023-08-18 19:14:00 127 mm[Hg] [facility] Diastolic blood pressure 2023-08-18 19:14:00 81 mm[Hg] [facility] Heart rate 2023-08-18 19:14:00 79 /min [facility] Body temperature 2023-08-18 19:14:00 35.72 Lani [facility] Respiratory rate 2023-08-18 19:14:00 18 /min [facility] Body height 2023-08-18 19:14:00 149.9 cm [facility] Body weight 2023-08-18 19:14:00 80.015 kg [facility] BMI 2023-08-18 19:14:00 35.63 kg/m2 [facility] Systolic blood pressure 2023-08-09 18:39:00 99 mm[Hg] [facility] Diastolic blood pressure 2023-08-09 18:39:00 66 mm[Hg] [facility] Heart rate 2023-08-09 18:39:00 101 /min [facility] Body temperature 2023-08-09 18:39:00 36.5 Lani [facility] Respiratory rate 2023-08-09 18:39:00 18 /min [facility] Oxygen saturation in Arterial blood by Pulse oximetry 2023-08-09 18:39:00 96 /min [facility] Body height 2023-08-08 11:47:00 149.9 cm [facility] Body weight 2023-08-08 11:47:00 87.544 kg [facility] BMI 2023-08-08 11:47:00 38.98 kg/m2 [facility] Systolic blood pressure 2023-08-08 14:00:00 109 mm[Hg] [facility] Diastolic blood pressure 2023-08-08 14:00:00 69 mm[Hg] [facility] Heart rate 2023-08-08 14:00:00 90 /min [facility] Oxygen saturation in Arterial blood by Pulse oximetry 2023-08-08 14:00:00 99 /min [facility] Body height 2023-08-08 11:47:00 149.9 cm [facility] Body weight 2023-08-08 11:47:00 87.544 kg [facility] BMI 2023-08-08 11:47:00 38.98 kg/m2 [facility] Systolic blood pressure 2023-08-05 19:37:00 102 mm[Hg] [facility] Diastolic blood pressure 2023-08-05 19:37:00 59 mm[Hg] [facility] Heart rate 2023-08-05 19:37:00 92 /[facility] 2023-08-05 19:37:00 36.11 Lani [facility] Respiratory rate 2023-08-05 19:37:00 18 /min [facility] Body height 2023-08-05 19:37:00 149.9 cm [facility] 2023-08-05 19:37:00 88.089 [facility] BMI 2023-08-05 19:37:00 39.22 kg/m2 [facility] Systolic blood pressure 2023-07-31 20:51:00 106 mm[Hg] [facility] Diastolic blood pressure 2023-07-31 20:51:00 63 mm[Hg] [facility] Heart rate 2023-07-31 20:51:00 99 /min [facility] Body temperature 2023-07-31 20:51:00 36.72 Lani [facility] Respiratory rate 2023-07-31 20:51:00 18 /min [facility] Body height 2023-07-31 20:51:00 149.9 cm [facility] Body weight 2023-07-31 20:51:00 87.346 kg Univ [facility] BMI 2023-07-31 20:51:00 38.89 kg/m2 [facility] Systolic blood pressure 2023-07-29 15:28:00 115 mm[Hg] [facility] Diastolic blood pressure 2023-07-29 15:28:00 66 mm[Hg] [facility] Heart rate 2023-07-29 15:28:00 92 /min [facility] Body temperature 2023-07-29 15:28:00 36.94 Lani [facility] Respiratory rate 2023-07-29 15:28:00 19 /min [facility] Body height 2023-07-29 15:28:00 149.9 cm [facility] Body weight 2023-07-29 15:28:00 87.454 kg [facility] BMI 2023-07-29 15:28:00 38.94 kg/m2 [facility] Systolic blood pressure 2023-07-24 16:05:00 125 mm[Hg] [facility] Diastolic blood pressure 2023-07-24 16:05:00 65 mm[Hg] [facility] Heart rate 2023-07-24 16:05:00 91 /min [facility] Body temperature 2023-07-24 16:05:00 36.28 Lani [facility] Respiratory rate 2023-07-24 16:05:00 19 /min [facility] Body height 2023-07-24 16:05:00 149.9 cm Univ [facility] Body weight 2023-07-24 16:05:00 87.499 kg [facility] BMI 2023-07-24 16:05:00 38.96 kg/m2 [facility] Systolic blood pressure 2023-07-21 18:50:00 105 mm[Hg] [facility] Diastolic blood pressure 2023-07-21 18:50:00 70 mm[Hg] [facility] Heart rate 2023-07-21 18:50:00 99 /min [facility] Body temperature 2023-07-21 18:50:00 36.56 Lani [facility] Respiratory rate 2023-07-21 18:50:00 18 /min [facility] Body height 2023-07-21 18:50:00 149.9 cm Univ [facility] Body weight 2023-07-21 18:50:00 86.682 kg Univ [facility] BMI 2023-07-21 18:50:00 38.60 kg/m2 [facility] Systolic blood pressure 2023-07-17 15:19:00 112 mm[Hg] [facility] Diastolic blood pressure 2023-07-17 15:19:00 66 mm[Hg] [facility] Heart rate 2023-07-17 15:19:00 92 /min [facility] Body temperature 2023-07-17 15:19:00 36.56 Lani [facility] Respiratory rate 2023-07-17 15:19:00 18 /min [facility] Body height 2023-07-17 15:19:00 149.9 cm Univ [facility] Body weight 2023-07-17 15:19:00 87.091 kg [facility] BMI 2023-07-17 15:19:00 38.78 kg/m2 [facility] Systolic blood pressure 2023-07-15 20:31:00 105 mm[Hg] [facility] Diastolic blood pressure 2023-07-15 20:31:00 59 mm[Hg] [facility] Heart rate 2023-07-15 20:31:00 94 /min [facility] Body temperature 2023-07-15 20:31:00 36.61 Lani [facility] Respiratory rate 2023-07-15 20:31:00 19 /min [facility] Body weight 2023-07-15 20:31:00 87.454 kg [facility] BMI 2023-07-15 20:31:00 38.94 kg/m2 [facility] Systolic blood pressure 2023-07-10 14:54:00 115 mm[Hg] [facility] Diastolic blood pressure 2023-07-10 14:54:00 63 mm[Hg] [facility] Heart rate 2023-07-10 14:54:00 93 /min [facility] Body temperature 2023-07-10 14:54:00 35.94 Lani [facility] Respiratory rate 2023-07-10 14:54:00 18 /min [facility] Body height 2023-07-10 14:54:00 149.9 cm Univ [facility] Body weight 2023-07-10 14:54:00 86.818 kg [facility] BMI 2023-07-10 14:54:00 38.66 kg/m2 [facility] Systolic blood pressure 2023-07-08 20:38:00 116 mm[Hg] [facility] Diastolic blood pressure 2023-07-08 20:38:00 64 mm[Hg] [facility] Heart rate 2023-07-08 20:38:00 102 /min [facility] Body temperature 2023-07-08 20:38:00 36.39 Lani [facility] Respiratory rate 2023-07-08 20:38:00 18 /min [facility] Body height 2023-07-08 20:38:00 149.9 cm [facility] Body weight 2023-07-08 20:38:00 86.892 kg Univ [facility] BMI 2023-07-08 20:38:00 38.69 kg/m2 [facility] Systolic blood pressure 2023-07-03 14:38:00 113 mm[Hg] [facility] Diastolic blood pressure 2023-07-03 14:38:00 64 mm[Hg] [facility] Heart rate 2023-07-03 14:38:00 105 /min [facility] Body temperature 2023-07-03 14:38:00 35.94 Lani [facility] Respiratory rate 2023-07-03 14:38:00 18 /min [facility] Body height 2023-07-03 14:38:00 149.9 cm [facility] Body weight 2023-07-03 14:38:00 86.818 kg [facility] BMI 2023-07-03 14:38:00 38.66 kg/m2 [facility] Systolic blood pressure 2023-07-02 07:00:00 103 mm[Hg] [facility] Diastolic blood pressure 2023-07-02 07:00:00 59 mm[Hg] [facility] Heart rate 2023-07-02 07:00:00 94 /min [facility] Oxygen saturation in Arterial blood by Pulse oximetry 2023-07-02 07:00:00 99 /min [facility] Body temperature 2023-07-02 05:09:00 36.72 Lani [facility] Respiratory rate 2023-07-02 05:09:00 20 /min [facility] Systolic blood pressure 2023-06-26 15:06:00 118 mm[Hg] [facility] Diastolic blood pressure 2023-06-26 15:06:00 62 mm[Hg] [place] [facility] Heart rate 2023-06-26 15:06:00 103 /min [facility] Body temperature 2023-06-26 15:06:00 36.39 Lani [facility] Respiratory rate 2023-06-26 15:06:00 18 /min [facility] Body height 2023-06-26 15:06:00 149.9 cm [facility] Body weight 2023-06-26 15:06:00 87.317 kg [facility] BMI 2023-06-26 15:06:00 38.88 kg/m2 [facility] Systolic blood pressure 2023-06-11 15:47:00 109 mm[Hg] [place] [facility] Diastolic blood pressure 2023-06-11 15:47:00 61 mm[Hg] [facility] Heart rate 2023-06-11 15:47:00 91 /min [facility] Body temperature 2023-06-11 15:47:00 36.06 Lani [facility] Respiratory rate 2023-06-11 15:47:00 18 /min [facility] Body height 2023-06-11 15:47:00 149.9 cm [facility] Body weight 2023-06-11 15:47:00 87.454 kg Univ [facility] BMI 2023-06-11 15:47:00 38.94 kg/m2 [facility] Diastolic blood pressure 2023-05-29 14:59:00 65 mm[Hg] [place] [facility] Heart rate 2023-05-29 14:59:00 92 /min [facility] Body temperature 2023-05-29 14:59:00 36.17 Lani [facility] Respiratory rate 2023-05-29 14:59:00 18 /min [facility] Body height 2023-05-29 14:59:00 149.9 cm [facility] Body weight 2023-05-29 14:59:00 87.998 kg [facility] BMI 2023-05-29 14:59:00 39.18 kg/m2 [facility] Systolic blood pressure 2023-05-29 14:59:00 105 mm[Hg] [facility] Systolic blood pressure 2023-05-14 15:15:00 92 mm[Hg] [facility] Diastolic blood pressure 2023-05-14 15:15:00 60 mm[Hg] [facility] Heart rate 2023-05-14 15:15:00 86 /min [facility] Body temperature 2023-05-14 15:15:00 36.22 Lani [facility] Respiratory rate 2023-05-14 15:15:00 17 /min [facility] Body height 2023-05-14 15:15:00 149.9 cm [facility] Body weight 2023-05-14 15:15:00 88.542 kg [facility] BMI 2023-05-14 15:15:00 39.43 kg/m2 [facility] Systolic blood pressure 2023-05-01 19:07:00 100 mm[Hg] [facility] Diastolic blood pressure 2023-05-01 19:07:00 49 mm[Hg] [facility] Heart rate 2023-05-01 19:07:00 89 /min [facility] Body temperature 2023-05-01 19:07:00 36.5 Lani [facility] Respiratory rate 2023-05-01 19:07:00 16 /min [facility] Body height 2023-05-01 19:07:00 149.9 cm [facility] Body weight 2023-05-01 19:07:00 89.676 kg [facility] BMI 2023-05-01 19:07:00 39.93 kg/m2 [facility] Systolic blood pressure 2023-04-17 15:00:00 109 mm[Hg] [facility] Diastolic blood pressure 2023-04-17 15:00:00 66 mm[Hg] [facility] Heart rate 2023-04-17 15:00:00 98 /min [facility] Body temperature 2023-04-17 15:00:00 36.56 Lani [facility] Body height 2023-04-17 15:00:00 149.9 cm [facility] Body weight 2023-04-17 15:00:00 88.814 kg Univ [facility] BMI 2023-04-17 15:00:00 39.55 kg/m2 [facility] Oxygen saturation in Arterial blood by Pulse oximetry 2023-04-17 15:00:00 93 /min [facility] Systolic blood pressure 2023-04-01 15:26:00 113 mm[Hg] [facility] Diastolic blood pressure 2023-04-01 15:26:00 70 mm[Hg] [facility] Heart rate 2023-04-01 15:26:00 97 /min [facility] Body temperature 2023-04-01 15:26:00 36.44 Lani [facility] Respiratory rate 2023-04-01 15:26:00 19 /min [facility] Body height 2023-04-01 15:26:00 149.9 cm [facility] Body weight 2023-04-01 15:26:00 88.451 kg Univ [facility] BMI 2023-04-01 15:26:00 39.39 kg/m2 [facility] Systolic blood pressure 2023-03-20 16:10:00 128 mm[Hg] [facility] Diastolic blood pressure 2023-03-20 16:10:00 69 mm[Hg] [facility] Heart rate 2023-03-20 16:10:00 87 /min [facility] Body temperature 2023-03-20 16:10:00 36.39 Lani [facility] Respiratory rate 2023-03-20 16:10:00 18 /min [facility] Body height 2023-03-20 16:10:00 149.9 cm [facility] Body weight 2023-03-20 16:10:00 88.724 kg Univ [facility] BMI 2023-03-20 16:10:00 39.51 kg/m2 [facility] Systolic blood pressure 2023-03-20 15:33:00 128 mm[Hg] [facility] Diastolic blood pressure 2023-03-20 15:33:00 69 mm[Hg] [facility] Heart rate 2023-03-20 15:33:00 87 /min [facility] Body temperature 2023-03-20 15:33:00 36.39 Lani [facility] Respiratory rate 2023-03-20 15:33:00 18 /min [facility] Body height 2023-03-20 15:33:00 149.9 cm [facility] Body weight 2023-03-20 15:33:00 88.724 kg [facility] BMI 2023-03-20 15:33:00 39.51 kg/m2 [facility] Systolic blood pressure 2023-03-04 15:00:00 113 mm[Hg] [facility] Diastolic blood pressure 2023-03-04 15:00:00 58 mm[Hg] [facility] Heart rate 2023-03-04 15:00:00 89 /min [facility] Body temperature 2023-03-04 15:00:00 35.78 Lani [facility] Respiratory rate 2023-03-04 15:00:00 18 /min [facility] Body height 2023-03-04 15:00:00 149.9 cm [facility] Body weight 2023-03-04 15:00:00 87.59 kg [facility] BMI 2023-03-04 15:00:00 39.00 kg/m2 [facility] Systolic blood pressure 2023-02-18 15:24:00 120 mm[Hg] [facility] Diastolic blood pressure 2023-02-18 15:24:00 66 mm[Hg] [facility] Heart rate 2023-02-18 15:24:00 80 /min [facility] Body temperature 2023-02-18 15:24:00 36.44 Lani [facility] Respiratory rate 2023-02-18 15:24:00 18 /min [facility] Body height 2023-02-18 15:24:00 149.9 cm [facility] Body weight 2023-02-18 15:24:00 88.451 kg [facility] BMI 2023-02-18 15:24:00 39.39 kg/m2 [facility] Body temperature 2023-02-03 20:53:00 36.33 Lani [facility] Systolic blood pressure 2023-01-21 13:36:00 114 mm[Hg] [facility] Diastolic blood pressure 2023-01-21 13:36:00 65 mm[Hg] [facility] Heart rate 2023-01-21 13:36:00 78 /min [facility] Body temperature 2023-01-21 13:36:00 36.28 Lani [facility] Respiratory rate 2023-01-21 13:36:00 18 /min [facility] Body height 2023-01-21 13:36:00 149.9 cm [facility] Body weight 2023-01-21 13:36:00 89.721 kg [facility] BMI 2023-01-21 13:36:00 39.95 kg/m2 [facility] Systolic blood pressure 2021-02-26 23:30:00 113 mm[Hg] [facility] Diastolic blood pressure 2021-02-26 23:30:00 66 mm[Hg] [facility] Heart rate 2021-02-26 23:30:00 92 /min [facility] Respiratory rate 2021-02-26 23:30:00 20 /min [facility] Oxygen saturation in Arterial blood by Pulse oximetry 2021-02-26 23:30:00 98 /min [facility] Body temperature 2021-02-26 22:20:43 37.72 Lani [facility] Systolic blood pressure 2021-02-26 20:35:00 125 mm[Hg] [facility] Diastolic blood pressure 2021-02-26 20:35:00 72 mm[Hg] [facility] Heart rate 2021-02-26 20:35:00 83 /min [facility] Body temperature 2021-02-26 20:35:00 37.67 Lani [facility] Respiratory rate 2021-02-26 20:35:00 16 /min [facility] Oxygen saturation in Arterial blood by Pulse oximetry 2021-02-26 20:35:00 97 /min [facility] Body height 2021-02-26 20:35:00 152.4 cm [facility] Body weight 2021-02-26 20:35:00 90.719 kg [facility] BMI 2021-02-26 20:35:00 39.06 kg/m2 [facility] Systolic blood pressure 2019-09-09 18:27:36 123 mm[Hg] [facility] Diastolic blood pressure 2019-09-09 18:27:36 75 mm[Hg] [facility] Heart rate 2019-09-09 18:27:36 100 /min [facility] Respiratory rate 2019-09-09 18:27:36 17 /min [facility] Body temperature 2019-09-09 17:45:00 37.5 Lani [facility] Body height 2019-09-09 17:45:00 134.6 cm [facility] Body weight 2019-09-09 17:45:00 91.173 kg [facility] BMI 2019-09-09 17:45:00 50.31 kg/m2 [facility] Oxygen saturation in Arterial blood by Pulse oximetry 2019-09-09 17:45:00 97 /min [facility] Systolic blood pressure 2019-09-09 18:27:36 123 mm[Hg] [facility] Diastolic blood pressure 2019-09-09 18:27:36 75 mm[Hg] [facility] Heart rate 2019-09-09 18:27:36 100 /min [facility] Respiratory rate 2019-09-09 18:27:36 17 /min [facility] Body temperature 2019-09-09 17:45:00 37.5 Lani [facility] Body height 2019-09-09 17:45:00 134.6 cm [facility] Body weight 2019-09-09 17:45:00 91.173 kg [facility] BMI 2019-09-09 17:45:00 50.31 kg/m2 [facility] Oxygen saturation in Arterial blood by Pulse oximetry 2019-09-09 17:45:00 97 /min [facility] Procedures Procedure Date / Time Performed Performing Clinician Source POCT GLUCOSE (AUTOMATED) 2023-08-09 18:33:00 Sidney Elizondo [facility] POCT GLUCOSE (AUTOMATED) 2023-08-09 18:33:00 ElizondoSidney ferrara [facility] POCT GLUCOSE (AUTOMATED) 2023-08-09 13:47:00 ElizondoSidney ferrara [facility] POCT GLUCOSE (AUTOMATED) 2023-08-09 13:47:00 Sidney Elizondo [facility] CBC WITH DIFF 2023-08-09 10:57:00 Florencia Miller [facility] CBC WITH DIFF 2023-08-09 10:57:00 Florencia Miller [facility] POCT GLUCOSE (AUTOMATED) 2023-08-09 03:01:00 ElizondoSidney rivas [facility] POCT GLUCOSE (AUTOMATED) 2023-08-09 03:01:00 Sidney Elizondo [facility] POCT GLUCOSE (AUTOMATED) 2023-08-08 23:50:00 Sidney Elizondo [facility] POCT GLUCOSE (AUTOMATED) 2023-08-08 23:50:00 Sidney Elizondo [facility] VENOUS CORD GAS 2023-08-08 15:03:00 [facility]23-08-08 15:03:00 [facility] 2023-08-08 13:58:00 Sidney Elizondo [facility] POCT GLUCOSE (AUTOMATED) 2023-08-08 12:50:00 ElizondoSidney rivas [facility] POCT GLUCOSE (AUTOMATED) 2023-08-08 12:50:00 Sidney Elizondo [facility] CBC WITH DIFF 2023-08-08 [facility] 2023-08-08 12:30:00 Shanae [facility] HB ABO GROUPING 2023-08-08 12:30:00 Thea Jolly [facility] RHO (D) IMMUNE GLOBULIN 2023-08-08 12:30:00 Gabino Crane [facility] SYPHILIS IGG/IGM 2023-08-08 12:30:00 Thea Jolly [facility] CBC WITH DIFF 2023-08-08 12:30:00 Shanae Thea [facility] HEPATITIS B SURFACE ANTIGEN 2023-08-08 12:30:00 Shanae [facility] HB ABO GROUPING 2023-08-08 12:30:00 Thea Jolly [facility] RHO (D) IMMUNE GLOBULIN 2023-08-08 12:30:00 Gabino Crane [facility] SYPHILIS IGG/IGM 2023-08-08 12:30:00 Thea Jolly [facility] HOSPITAL ADMISSION 2023-08-08 06:01:00 Doctor Un assigned, [place] [facility] POCT URINALYSIS 2023-08-05 20:42:00 Nathaniel Barillas [facility] NON-STRESS TEST 2023-08-05 20:28:15 Nena Mina [facility] NON-STRESS TEST 2023-08-01 02:00:54 Nena Mina [facility] POCT URINALYSIS 2023-07-31 20:51:00 Nathaniel Barillas [facility] DIABETES TESTING REPORTS 2023-07-30 06:01:00 Doc tor Unassigned, [place] [facility] NON-STRESS TEST 2023-07-29 18:43:33 Nena Mina [facility] SECOND AND THIRD TRIMESTER ULTRASOUND 2023-07-29 17:22:00 Nathaniel Barillas [facility] POCT URINALYSIS 2023-07-29 15:33:00 Nathaniel Barillas [facility] NON-STRESS TEST 2023-07-24 17:35:41 Nena Mina [facility] POCT URINALYSIS 2023-07-24 16:12:00 Nathaniel Barillas [facility] NON-STRESS TEST 2023-07-21 19:40:27 Robert Barillas [facility] POCT URINALYSIS 2023-07-21 18:53:00 Nathaniel Barillas [facility] DIABETES TESTING REPORTS 2023-07-21 06:01:00 Doc tor Unassigned, [place] [facility] NON-STRESS TEST 2023-07-17 17:57:18 Nena Mina [facility] POCT URINALYSIS 2023-07-17 15:20:00 Nathaniel Barillas [facility] NON-STRESS TEST 2023-07-15 21:31:05 Robert Barilals [facility] POCT URINALYSIS 2023-07-15 20:19:00 Nathaniel Barillas [facility] NON-STRESS TEST 2023-07-10 15:36:50 Robert Barillas [facility] POCT URINALYSIS 2023-07-10 14:55:00 Nathaniel Barillas [facility] PATIENT CORRESPONDENCE (LETTERS, USPS DOCUMENTATION) 2023-07-10 06:01:00 Doctor Unassigned, [place] [facility] NON-STRESS TEST 2023-07-08 22:21:19 Nena Mina [facility] POCT URINALYSIS 2023-07-08 20:39:00 Nathaniel Barillas [facility] SECOND AND THIRD TRIMESTER ULTRASOUND 2023-07-03 16:38:00 Nathaniel Barillas [facility] NON-STRESS TEST 2023-07-03 15:05:30 Joann Dillard [facility] POCT URINALYSIS 2023-07-03 14:39:00 Nathaniel Barillas [facility] URINALYSIS 2023-07-02 05:57:00 [facility] NOTICE OF PRIVACY PRACTICES 2023-07-02 04:46:47 Doctor Unassigned, [place] [facility] CONSENT/REFUSAL FOR DIAGNOSIS AND TREATMENT 2023-07-02 04:45:56 Doctor Unassigned, [place] [facility] ASSIGNMENT OF BENEFITS 2023-07-02 04:45:35 Docto r Unassigned, [place] [facility] TDAP VACCINE, >11 YRS, IM 2023-06-26 15:42:48 Jessa Burk [facility] POCT URINALYSIS 2023-06-26 15:18:00 Nathaniel Barillas [facility] MEDICATION CORRESPONDENCE 2023-06-20 06:01:00 Do ctor Unassigned, [place] [facility] POCT URINALYSIS 2023-06-11 15:50:00 Nathaniel Barillas [facility] POCT URINALYSIS 2023-05-29 15:00:00 Nathaniel Barillas [facility] DIABETES TESTING REPORTS 2023-05-29 06:01:00 Doc tor Unassigned, [place] [facility] SECOND AND THIRD TRIMESTER ULTRASOUND 2023-05-27 17:07:00 Nathaniel Barillas [facility] DIABETES TESTING REPORTS 2023-05-14 06:01:00 Doc tor Unassigned, [place] [facility] POCT URINALYSIS 2023-05-14 00:00:00 Nathaniel Barillas [facility] DIABETES TESTING REPORTS 2023-05-02 06:01:00 Doc tor Unassigned, [place] [facility] POCT URINALYSIS 2023-05-01 00:00:00 Nathaniel Barillas [facility] SECOND AND THIRD TRIMESTER ULTRASOUND 2023-04-29 20:27:00 Nathaniel Barillas [facility] POCT URINALYSIS 2023-04-17 15:07:00 Nathaniel Barillas [facility] DIABETES TESTING REPORTS 2023-04-17 05:01:00 Doc jaylyn Unassigned, [place] [facility] POCT URINALYSIS 2023-04-01 00:00:00 Nathaniel Barillas [facility] SECOND AND THIRD TRIMESTER ULTRASOUND 2023-03-31 16:53:00 Nathaniel Barillas [facility] SECOND AND THIRD TRIMESTER ULTRASOUND 2023-03-31 16:46:00 Nathaniel Barillas [facility] QUAD SCRN 2023-03-20 17:01:00 Tay Yap [facility] FLU VACC (), 6 MO-64 YRS, .5ML, IM, QUAD (FLUCELVAX) 2023-03-20 16:19:03 Tay Yap [facility] POCT URINALYSIS 2023-03-20 15:34:00 Nathaniel Barillas [facility] POCT URINALYSIS 2023-03-20 00:00:00 Nathaniel Barillas [facility] POCT URINALYSIS 2023-03-04 15:02:00 Nathaniel Barillas [facility] SECOND AND THIRD TRIMESTER ULTRASOUND 2023-02-26 15:59:00 Nathaniel Barillas [facility] DIABETES TESTING REPORTS 2023-02-18 05:01:00 Doc jaylyn Unassigned, [place] [facility] POCT TEST 2023-01-21 13:30:00 Fabian Barillas [facility] POCT URINALYSIS W/O SPECIFIC GRAVITY 2023-01-21 13:30:00 Nathaniel Barillas [facility] ASSIGNMENT OF BENEFITS 2023-01-21 12:55:56 Docto r Unassigned, [place] [facility] POCT TEST 2021-02-26 22:28:00 Quan James [facility] URINALYSIS 2021-02-26 22:18:00 Jovanny James [facility] URINE DRUG (IMMUNOASSAY) - COMPREHENSIVE DRUG SCREEN W/O REFLEX 2021-02-26 22:18:00 Jovanny James [facility] TROPONIN I 2021-02-26 21:47:00 Jovanny James [facility] FREE T4 2021-02-26 21:47:00 Jovanny James [facility] THYROID STIMULATING HORMONE 2021-02-26 21:47:00 Jovanny James [facility] COMP. METABOLIC PANEL (19047) 2021-02-26 21:47:00 Jovanny James [facility] ETHANOL 2021-02-26 21:47:00 Jovanny James [facility] CBC WITH DIFF 2021-02-26 21:47:00 Jovanny James [facility] N-TERMINAL PRO-BNP 2021-02-26 21:47:00 [facility] (ID NOW RAPID TESTING) 2021-02-26 21:47:00 Jovanny James [facility] ASSIGNMENT OF BENEFITS 2021-02-26 21:38:43 Docto r Unassigned, [place] [facility] NOTICE OF PRIVACY PRACTICES 2021-02-26 19:54:42 Doctor Unassigned, [place] [facility] CONSENT/REFUSAL FOR DIAGNOSIS AND TREATMENT 2021-02-26 19:54:14 Doctor Unassigned, [place] [facility] CONSENT/REFUSAL FOR DIAGNOSIS AND TREATMENT 2019-09-09 17:31:33 Doctor Unassigned, [place] [facility] Encounters Start Date/Time End Date/Time Encounter Type Admission Type Attending Clinicians Care Facility Care Department Encounter ID Source 2021-04-23 20:39:49 Emergency [facility] [id number] [facility] 2021-04-19 15:09:57 Emergency [facility] [id number] [facility] 2023-08-11 00:00:00 2024-10-14 21:10:[address] [facility] [address] 1.2.840.114 350.1.13.10 4.2.7.2.686 [id number] Replaced by [facility] [id number] [facility] 2023-10-14 08:00:00 2023-10-14 08:00:00 Outpatient R POLLY MINA [facility] [id number] [facility] 2023-09-23 08:00:00 2023-09-23 08:00:00 Outpatient R POLLY MINA [facility] [id number] [facility] 2023-09-01 10:00:00 2023-09-01 10:36:27 Outpatient R NATHANIEL BARILLAS [facility] [id number] [facility] 2023-09-01 10:00:00 2023-09-01 10:36:27 Routine Visit Nathaniel Barillas [facility] VIDEO PRODUCTION ASSISTANT [facility]NAL & CHILD [facility] 1..840.114 350.1.13.10 4.2.7.2.686 [id number] 107 [id number] [facility] 2023-08-18 13:00:00 2023-08-18 13:15:00 [facility], Attending Nathaniel Barillas [facility] VIDEO PRODUCTION ASSISTANT [facility] & CHILD [facility] 1..840.114 350.1.13.10 4.2.7.2.686 [id number] [facility] 2023-08-18 13:00:00 2023-08-18 13:00:00 Outpatient R NATHANIEL BARILLAS [facility] [id number] [facility] 2023-08-15 00:00:00 2023-08-15 00:00:00 Patient Secure Msg Polly Mina [facility] VIDEO PRODUCTION ASSISTANT [facility] & CHILD [facility] ..840.114 350.1.13.10 4.2.7.2.686 [id number] 107 [id number] [facility] 2023-08-08 05:31:00 2023-08-09 15:33:00 Inpatient X SIDNEY ELIZONDO [facility] AJ [id number] [facility] 2023-08-08 05:31:00 2023-08-09 15:33:00 [facility] 1.2.840.114 350.1.13.10 4.2.7.2.686 [id number] [facility] 2023-08-08 07:15:00 2023-08-08 09:00:00 [facility] 1.2.840.114 350.1.13.10 4.2.7.2.686 [id number] [facility] 2023-08-08 00:00:00 2023-08-08 00:00:00 Orders Only Doctor Unassigned, [place] [facility] 1.2.840.114 350.1.13.10 4.2.7.2.686 [id number] [facility] 2023-08-07 14:00:00 2023-08-07 14:00:00 Outpatient POLLY CORTES [facility] [id number] [facility] 2023-08-05 13:30:00 2023-08-05 14:20:02 Outpatient POLLY CORTES [facility] [id number] [facility] 2023-08-05 13:30:00 2023-08-05 14:20:02 Routine Visit Polly Mina [facility] VIDEO PRODUCTION ASSISTANT [facility] 1.2.840.114 350.1.13.10 4.2.7.2.686 [id number] 107 [id number] [facility] 2023-08-04 14:30:00 2023-08-04 14:30:00 Outpatient NATHANIEL CORREA [facility] [id number] [facility] 2023-08-04 00:00:00 2023-08-04 00:00:00 Jessa Lazaro [facility] VIDEO PRODUCTION ASSISTANT [facility] & CHILD [facility] 1.0.114 350.1.13.10 4.2.7.2.686 [id number] 107 [id number] [facility] 2023-08-04 00:00:00 2023-08-04 00:00:00 Judy Luther [facility] VIDEO PRODUCTION ASSISTANT [facility] & CHILD [facility] 1.0.114 350.1.13.10 4.2.7.2.686 [id number] [facility] 2023-08-04 00:00:00 2023-08-04 00:00:00 Telephone Nathaniel Barillas [facility] VIDEO PRODUCTION ASSISTANT [facility] & CHILD [facility] 1.0.114 350.1.13.10 4.2.7.2.686 [id number] 107 [id number] [facility] 2023-07-31 15:00:00 2023-07-31 15:33:08 Outpatient POLLY CORTES [facility] [id number] [facility] 2023-07-31 15:00:00 2023-07-31 15:33:08 Routine Visit Polly Mina [facility] & CHILD [facility] 1.0.114 350.1.13.10 4.2.7.2.686 [id number] 107 [id number] [facility] 2023-07-31 10:00:00 2023-07-31 10:00:00 Outpatient POLLY CORTES [facility] [id number] [facility] 2023-07-30 00:00:00 2023-07-30 00:00:00 Orders Only Doctor Unassigned, [place] [facility] 1.0.114 350.1.13.10 4.2.7.2.686 [id number] [facility] 2023-07-29 11:00:00 2023-07-29 11:22:23 Outpatient P CYNDY VASQUEZ [facility] [id number] [facility] 2023-07-29 11:00:00 2023-07-29 11:22:23 Echo Technician Visit Ultrasound, [facility] Polly Mina Gay [facility] VIDEO PRODUCTION ASSISTANT [facility] MATERNAL & CHILD [facility] 1.2.840.114 350.1.13.10 4.2.7.2.686 [id number] [facility] 2023-07-29 10:30:00 2023-07-29 10:30:00 Routine Visit Polly Mina [facility] VIDEO PRODUCTION ASSISTANT [facility] & CHILD [facility] 1.2.840.114 350.1.13.10 4.2.7.2.686 [id number] [facility] 2023-07-29 00:00:00 2023-07-29 00:00:00 Abstract Nathaniel Barillas [facility] VIDEO PRODUCTION ASSISTANT [facility] & CHILD [facility] 1.2840.114 350.1.13.10 4.2.7.2.686 [id number] [facility] 2023-07-24 10:15:00 2023-07-24 11:07:55 Outpatient R NATHANIEL BARILLAS [facility] [id number] [facility] 2023-07-24 10:15:00 2023-07-24 11:07:55 Routine Visit Polly Mina Damilola C [facility] VIDEO PRODUCTION ASSISTANT [facility] & CHILD [facility] 1.2840.114 350.1.13.10 4.2.7.2.686 [id number] [facility] 2023-07-21 13:00:00 2023-07-21 13:40:15 Outpatient R NATHANIEL BARILLAS [facility] [id number] [facility] 2023-07-21 13:00:00 2023-07-21 13:40:15 Routine Visit Nathaniel Barillas [facility] VIDEO PRODUCTION ASSISTANT [facility] & CHILD [facility] 1.2.840.114 350.1.13.10 4.2.7.2.686 [id number] [facility] 2023-07-21 00:00:00 2023-07-21 00:00:00 Orders Only Doctor Unassigned, [place] [facility] 1.2.840.114 350.1.13.10 4.2.7.2.686 [id number] [facility] 2023-07-17 10:15:00 2023-07-17 10:15:00 Routine Visit Polly Mina [facility] VIDEO PRODUCTION ASSISTANT [facility] & CHILD [facility] 1..840.114 350.1.13.10 4.2.7.2.686 [id number] [facility] 2023-07-17 10:15:00 2023-07-17 09:48:54 Outpatient R POLLY MINA [facility] [id number] [facility] 2023-07-15 15:30:00 2023-07-15 15:30:00 Routine Visit Nathaniel Barillas [facility] VIDEO PRODUCTION ASSISTANT [facility] & CHILD [facility] 1..840.114 350.1.13.10 4.2.7.2.686 [id number] [facility] 2023-07-15 15:30:00 2023-07-15 15:03:11 Outpatient R NATHANIEL BARILLAS [facility] [id number] [facility] 2023-07-14 09:45:00 2023-07-14 09:45:00 Outpatient R NATHANIEL BARILLAS [facility] [id number] [facility] 2023-07-10 08:45:00 2023-07-10 09:42:29 Routine Visit Nathaniel Barillas Kristin N [facility] VIDEO PRODUCTION ASSISTANT [facility] & CHILD [facility] 1.2.840.114 350.1.13.10 4.2.7.2.686 [id number] [facility] 2023-07-10 08:45:00 2023-07-10 09:42:29 Outpatient JESSA CAO [facility] [id number] [facility] 2023-07-10 00:00:00 2023-07-10 00:00:00 Orders Only Doctor Unassigned, [place] [facility] 1.840.114 350.1.13.10 4.2.7.2.686 [id number] [facility] 2023-07-10 00:00:00 2023-07-10 00:00:00 Refill Nathaniel Barillas [facility] VIDEO PRODUCTION ASSISTANT [facility] & CHILD [facility] 1.840.114 350.1.13.10 4.2.7.2.686 [id number] [facility] 2023-07-10 00:00:00 2023-07-10 00:00:00 Refill Judy Castellano [facility] VIDEO PRODUCTION ASSISTANT [facility]NAL & CHILD [facility] 1.2840.114 350.1.13.10 4.2.7.2.686 [id number] 107 [id number] [facility] 2023-07-08 15:00:00 2023-07-08 15:01:06 Outpatient POLLY CORTES [facility] [id number] [facility] 2023-07-08 15:00:00 2023-07-08 15:01:06 Routine Visit Polly Mina [facility] VIDEO PRODUCTION ASSISTANT [facility] & CHILD [facility] 1.2840.114 350.1.13.10 4.2.7.2.686 [id number] 107 [id number] [facility] 2023-07-04 00:00:00 2023-07-04 00:00:00 Case Management JayePolly jensen [facility] VIDEO PRODUCTION ASSISTANT [facility] & CHILD [facility] 1.840.114 350.1.13.10 4.2.7.2.686 [id number] [facility] 2023-07-04 00:00:00 2023-07-04 00:00:00 Case Management PatrickElodia Neena [facility] 1..840.114 350.1.13.10 4.2.7.2.686 [id number] [facility] 2023-07-03 10:00:00 2023-07-03 10:38:16 Echo Technician Visit Ultrasound, Jessa Morales Faranak [facility] VIDEO PRODUCTION ASSISTANT [facility] & CHILD [facility] 1.840.114 350.1.13.10 4.2.7.2.686 [id number] [facility] 2023-07-03 10:00:00 2023-07-03 10:38:16 Outpatient KATHRINE GUAN [facility] [id number] [facility] 2023-07-03 08:45:00 2023-07-03 09:03:12 Routine Visit Risk, Angy p/Jessa Barrera [facility] VIDEO PRODUCTION ASSISTANT [facility] & CHILD [facility] 1.840.114 350.1.13.10 4.2.7.2.686 [id number] 107 [id number] [facility] 2023-07-03 08:30:00 2023-07-03 08:30:00 Outpatient JESSA CAO [facility] [id number] [facility] 2023-07-01 22:57:00 2023-07-02 01:36:00 Outpatient X ADUM, ELODIA [facility] AJ [id number] [facility] 2023-07-01 22:57:00 2023-07-02 01:36:00 Emergency Adum, Elodia Chaudhary [facility] 1.2840.114 350.1.13.10 4.2.7.2.686 [id number] [facility] 2023-07-02 00:00:00 2023-07-02 00:00:00 Telephone Risk, DorysRmchp-N p/High [facility] VIDEO PRODUCTION ASSISTANT [facility] & CHILD [facility] 1.840.114 350.1.13.10 4.2.7.2.686 [id number] 107 [id number] [facility] 2023-07-01 00:00:00 2023-07-01 00:00:00 Orders Only Doctor Unassigned, [place] [facility] 1.0.114 350.1.13.10 4.2.7.2.686 [id number] [facility] 2023-06-26 08:45:00 2023-06-26 10:10:38 Routine Visit Risk, Fareed-Rmchp-N p/High Jessa Dillard [facility] VIDEO PRODUCTION ASSISTANT [facility] & CHILD [facility] 1.840.114 350.1.13.10 4.2.7.2.686 [id number] [facility] 2023-06-26 09:00:00 2023-06-26 10:10:31 Outpatient R JESSA DILLARD [facility] [id number] [facility] 2023-06-24 00:00:00 2023-06-24 00:00:00 Telephone Nathaniel Barillas [facility] VIDEO PRODUCTION ASSISTANT [facility] & CHILD [facility] 1.840.114 350.1.13.10 4.2.7.2.686 [id number] 107 [id number] [facility] 2023-06-20 00:00:00 2023-06-20 00:00:00 Orders Only Doctor Unassigned, [place] [facility] 1.840.114 350.1.13.10 4.2.7.2.686 [id number] [facility] 2023-06-17 00:00:00 2023-06-17 00:00:00 Telephone Nathaniel Barillas [facility] VIDEO PRODUCTION ASSISTANT [facility] & CHILD [facility] 1.840.114 350.1.13.10 4.2.7.2.686 [id number] 107 [id number] [facility] 2023-06-11 09:45:00 2023-06-11 10:03:14 Outpatient JESSA CAO [facility] [id number] [facility] 2023-06-11 09:45:00 2023-06-11 10:03:14 Routine Visit Risk, Ang-Rmchp-N p/High Jessa Dillard [facility] VIDEO PRODUCTION ASSISTANT [facility] CHILD [facility] .840.114 350.1.13.10 4.2.7.2.686 [id number] [facility] 2023-05-30 00:00:00 2023-05-30 00:00:00 Abstract Nathaniel Barillas [facility] VIDEO PRODUCTION ASSISTANT [facility] 1.840.114 350.1.13.10 4.2.7.2.686 [id number] 107 [id number] [facility] 2023-05-29 09:00:00 2023-05-29 09:11:06 Outpatient JESSA CAO [facility] [id number] [facility] 2023-05-29 09:00:00 2023-05-29 09:11:06 Routine Visit Risk, Ang-Rmchp-N p/High Jessa Dillard [facility] 1.0.114 350.1.13.10 4.2.7.2.686 [id number] 107 [id number] [facility] 2023-05-29 00:00:00 2023-05-29 00:00:00 Orders Only Doctor Unassigned, [place] [facility] 1.2840.114 350.1.13.10 4.2.7.2.686 [id number] [facility] 2023-05-27 11:00:00 2023-05-27 11:15:07 Outpatient P CYNDY VASQUEZ [facility] [id number] [facility] 2023-05-27 11:00:00 2023-05-27 11:15:07 Echo Technician Visit Ultrasound, Cyndy Guillaume [facility] VIDEO PRODUCTION ASSISTANT [facility] & CHILD [facility] 1..114 350.1.13.10 4.2.7.2.686 [id number] [facility] 2023-05-26 00:00:00 2023-05-26 00:00:00 Nathaniel Thrasher [facility] VIDEO PRODUCTION ASSISTANT [facility] & CHILD [facility] 1..114 350.1.13.10 4.2.7.2.686 [id number] 107 [id number] [facility] 2023-05-14 09:30:00 2023-05-14 09:34:44 Outpatient R JESSA DILLARD [facility] [id number] [facility] 2023-05-14 09:30:00 2023-05-14 09:34:44 Routine Visit Risk, GianaN p/Tay Bone Kristin N [facility] VIDEO PRODUCTION ASSISTANT [facility] 1.0.114 350.1.13.10 4.2.7.2.686 [id number] [facility] 2023-05-14 00:00:00 2023-05-14 00:00:00 Orders Only Doctor Unassigned, [place] [facility] 1.2840.114 350.1.13.10 4.2.7.2.686 [id number] [facility] 2023-05-02 00:00:00 2023-05-02 00:00:00 Orders Only Doctor Unassigned, [place] [facility] 1.2840.114 350.1.13.10 4.2.7.2.686 [id number] [facility] 2023-05-01 13:00:00 2023-05-01 13:27:47 Outpatient JESSA CAO [facility] [id number] [facility] 2023-05-01 13:00:00 2023-05-01 13:27:47 Routine Visit Risk, GianaN p/Jessa Barrera [facility] VIDEO PRODUCTION ASSISTANT [facility] 1.840.114 350.1.13.10 4.2.7.2.686 [id number] [facility] 2023-04-30 00:00:00 2023-04-30 00:00:00 Abstract Nathaniel Barillas [facility] VIDEO PRODUCTION ASSISTANT [facility] 1.840.114 350.1.13.10 4.2.7.2.686 [id number] [facility] 2023-04-29 14:00:00 2023-04-29 14:30:00 Echo Technician Visit Ultrasound, Judy Bingham [facility] VIDEO PRODUCTION ASSISTANT [facility] 1.2840.114 350.1.13.10 4.2.7.2.686 [id number] [facility] 2023-04-29 14:00:00 2023-04-29 14:00:00 Outpatient JUDY BONNER SANGEETA [facility] [id number] [facility] 2023-04-17 10:00:00 2023-04-17 10:23:08 Outpatient R TAY YAP [facility] [id number] [facility] 2023-04-17 10:00:00 2023-04-17 10:23:08 Routine Visit Risk, Ang-Rmchp-N p/High Tay Yap [facility] VIDEO PRODUCTION ASSISTANT [facility] [facility] 1.2.840.114 350.1.13.10 4.2.7.2.686 [id number] 107 [id number] [facility] 2023-04-17 00:00:00 2023-04-17 00:00:00 Orders Only Doctor Unassigned, [place] [facility] 1.2840.114 350.1.13.10 4.2.7.2.686 [id number] [id number] [facility] 2023-04-07 00:00:00 2023-04-07 00:00:00 Telephone Nathaniel Barillas [facility] VIDEO PRODUCTION ASSISTANT [facility] 1.2.840.114 350.1.13.10 4.2.7.2.686 [id number] 107 [id number] [facility] 2023-04-01 10:30:00 2023-04-01 11:16:48 Outpatient R NATHANIEL BARILLAS [facility] [id number] [facility] 2023-04-01 10:30:00 2023-04-01 11:16:48 Routine Visit Nathaniel Barillas [facility] VIDEO PRODUCTION ASSISTANT [facility] 1.2840.114 350.1.13.10 4.2.7.2.686 [id number] [facility] 2023-03-31 10:30:00 2023-03-31 11:37:19 Outpatient RICH KAPLAN SHANNON [facility] [id number] [facility] 2023-03-31 10:30:00 2023-03-31 11:37:19 Echo Technician Visit Ultrasound, Rich Duong [facility] VIDEO PRODUCTION ASSISTANT [facility] 1..840.114 350.1.13.10 4.2.7.2.686 [id number] [facility] 2023-03-26 08:00:00 2023-03-26 08:00:00 Outpatient R NATHANIEL BARILLAS [facility] [id number] [facility] 2023-03-26 00:00:00 2023-03-26 00:00:00 Refill Nathaniel Barillas [facility] VIDEO PRODUCTION ASSISTANT [facility] ..840.114 350.1.13.10 4.2.7.2.686 [id number] 107 [id number] [facility] 2023-03-20 10:45:00 2023-03-20 12:00:28 Routine Visit Risk, Fareed-Rmchp-N p/High Nathaniel Barillas Teresa K [facility] VIDEO PRODUCTION ASSISTANT [facility] ..840.114 350.1.13.10 4.2.7.2.686 [id number] [facility] 2023-03-20 10:30:00 2023-03-20 10:52:06 Outpatient R NATHANIEL BARILLAS [facility] [id number] [facility] 2023-03-20 10:30:00 2023-03-20 10:52:06 Routine Visit Nathaniel Barillas [facility] VIDEO PRODUCTION ASSISTANT [facility] 1..840.114 350.1.13.10 4.2.7.2.686 [id number] [facility] 2023-03-20 00:00:00 2023-03-20 00:00:00 Refill Lakishajonnie Nathaniel Manuel [facility] VIDEO PRODUCTION ASSISTANT [facility] 1.2840.114 350.1.13.10 4.2.7.2.686 [id number] [facility] 2023-03-04 09:45:00 2023-03-04 10:17:41 Outpatient R NIKKI NATHANIEL [facility] [id number] [facility] 2023-03-04 09:45:00 2023-03-04 10:17:41 Routine Visit Nathaniel Barillas [facility] VIDEO PRODUCTION ASSISTANT [facility] 1.2840.114 350.1.13.10 4.2.7.2.686 [id number] [facility] 2023-02-28 00:00:00 2023-02-28 00:00:00 Abstract BooedwardNathaniel cristina [facility] VIDEO PRODUCTION ASSISTANT [facility] 1.84.114 350.1.13.10 4.2.7.2.686 [id number] [facility] 2023-02-26 09:30:00 2023-02-26 11:08:57 Outpatient P CYNDY VASQUEZ [facility] [id number] [facility] 2023-02-26 09:30:00 2023-02-26 11:08:57 Echo Technician Visit Ultrasound, Ang-Mfm Cyndy Vasquez [facility] VIDEO PRODUCTION ASSISTANT [facility] 1.84.114 350.1.13.10 4.2.7.2.686 [id number] [facility] 2023-02-25 00:00:00 2023-02-25 00:00:00 Refill Nathaniel Barillas [facility] VIDEO PRODUCTION ASSISTANT [facility] 1.2840.114 350.1.13.10 4.2.7.2.686 [id number] [facility] 2023-02-25 00:00:00 2023-02-25 00:00:00 Refill Nathaniel Barillas [facility] VIDEO PRODUCTION ASSISTANT [facility] 1..114 350.1.13.10 4.2.7.2.686 [id number] 107 [id number] [facility] 2023-02-18 10:30:00 2023-02-18 10:59:24 Outpatient R NATHANIEL BARILLAS [facility] [id number] [facility] 2023-02-18 10:30:00 2023-02-18 10:59:24 Routine Visit Nathaniel Barillas [facility] 1..114 350.1.13.10 4.2.7.2.686 [id number] 107 [id number] [facility] 2023-02-18 00:00:00 2023-02-18 00:00:00 Orders Only Doctor Unassigned, [place] [facility] 1..114 350.1.13.10 4.2.7.2.686 [id number] [id number] [facility] 2023-02-03 15:00:00 2023-02-03 15:50:36 Outpatient R NATHANIEL BARILLAS [facility] [id number] [facility] 2023-02-03 15:00:00 2023-02-03 15:50:36 Nurse Visit Visit, Ang-Rmchp Nurse Nathaniel Barillas [facility]..114 350.1.13.10 4.2.7.2.686 [id number] 107 [id number] [facility] 2023-01-30 00:00:00 2023-01-30 00:00:00 Telephone Nathaniel Barillas [facility] 1.2.840.114 350.1.13.10 4.2.7.2.686 [id number] [facility] 2023-01-30 00:00:00 2023-01-30 00:00:00 Telephone Nathaniel Barillas [facility] VIDEO PRODUCTION ASSISTANT [facility] 1.2.840.114 350.1.13.10 4.2.7.2.686 [id number] 107 [id number] [facility] 2023-01-28 08:00:00 2023-01-28 08:07:43 Outpatient R NATHANIEL BARILLAS [facility] [id number] [facility] 2023-01-28 08:00:00 2023-01-28 08:07:43 Echo Technician Visit Lab, Ang-Rmchp Nathaniel Barillas [facility] VIDEO PRODUCTION ASSISTANT [facility] 1.2.840.114 350.1.13.10 4.2.7.2.686 [id number] 107 [id number] [facility] 2023 00:00:00 2023 00:00:00 Telephone Nathaniel Barillas [facility] VIDEO PRODUCTION ASSISTANT [facility] 1.2.840.114 350.1.13.10 4.2.7.2.686 [id number] 107 [id number] [facility] 2023-01-21 08:30:00 2023-01-21 09:12:18 Initial Visit Nathaniel Barillas [facility] VIDEO PRODUCTION ASSISTANT [facility] 1.2.840.114 350.1.13.10 4.2.7.2.686 [id number] [facility] 2023-01-21 08:00:00 2023-01-21 08:23:12 Outpatient R NATHANIEL BARILLAS [facility] [id number] [facility] 2023-01-21 00:00:00 2023-01-21 00:00:00 Orders Only Doctor Unassigned, [place] [facility] 1.2840.114 350.1.13.10 4.2.7.2.686 [id number] [id number] [facility] 2022-12-30 13:49:45 2022-12-30 13:49:45 Outpatient [facility] [id number] Alli Vera 2021-02-26 15:37:00 2021-02-26 19:09:00 Emergency James Jovanny [facility] 1.2840.114 350.1.13.10 4.2.7.2.686 [id number] [facility] 2020-01-03 09:47:45 2020-01-03 09:58:36 Laboratory Only Lab, Adc Fam Pob Katheryn Lagos [facility] [address] 1.84.114 350.1.13.10 4.2.7.2.686 [id number] [facility] 2020-01-03 09:40:00 2020-01-03 09:40:00 Outpatient R [facility] [id number] [facility] 2019-09-09 12:47:20 2019-09-09 13:55:00 Emergency Lacey Espinosa [facility] 1.2.114 350.1.13.10 4.2.7.2.686 [id number] 2019-09-09 12:47:20 2019-09-09 13:55:00 Emergency Lacey Espinosa [facility] 1.20.114 350.1.13.10 4.2.7.2.686 [id number] [facility] 2019-09-09 00:00:00 2019-09-09 00:00:00 Orders Only Doctor Unassigned, [place] [facility] 1.20.114 350.1.13.10 4.2.7.2.686 [id number] [id number] 2019-09-09 00:00:00 2019-09-09 00:00:00 Orders Only Doctor Unassigned, [place] [facility] 1.2.840.114 350.1.13.10 4.2.7.2.686 [id number] [facility] Results Test Description Test Time Test Comments Results Result Co mments Source [facility] GLUCOSE (AUTOMATED)2023-08-09 18:34:13* Test Item Value Reference Range Interpretation Comme nts POCT GLU (test code = 7350500521) 147 mg/dL 70-110 H Lab Interpretation (test cod e = 37627-2) Abnormal [facility] GLUCOSE (AUTOMATED)2023-08-09 13:49:07* Test Item Value Reference Range Interpretation Comme nts POCT GLU (test code = 1677797229) 96 mg/dL 70-110 Lab Interpretation (test cod e = 90008-2) Normal [facility] GLUCOSE (AUTOMATED)2023-08-09 13:49:07* Test Item Value Reference Range Interpretation Comme nts POCT GLU (test code = 8658247064) 96 mg/dL 70-110 Lab Interpretation (test cod e = 68262-3) Normal [facility] GLUCOSE (AUTOMATED)2023-08-09 03:12:11* Test Item Value Reference Range Interpretation Comme nts POCT GLU (test code = 2933418262) 120 mg/dL 70-110 H Lab Interpretation (test cod e = 96641-6) Abnormal [facility] GLUCOSE (AUTOMATED)2023-08-09 03:12:11* Test Item Value Reference Range Interpretation Comme nts POCT GLU (test code = 2702522636) 120 mg/dL 70-110 H Lab Interpretation (test cod e = 44534-4) Abnormal [facility] GLUCOSE (AUTOMATED)2023-08-08 23:51:14* Test Item Value Reference Range Interpretation Comme nts POCT GLU (test code = 2115157345) 92 mg/dL 70-110 Lab Interpretation (test cod e = 81113-6) Normal [facility] GLUCOSE (AUTOMATED)2023-08-08 23:51:14* Test Item Value Reference Range Interpretation Comme nts POCT GLU (test code = 3064709838) 92 mg/dL 70-110 Lab Interpretation (test cod e = 49738-8) Normal [facility] (D) IMMUNE [id number] 17:19:57* Test Item Value Reference Range Interpretation Comme nts RHIG CANDIDATE? (test code = 5188) No- see comment Patient is not a candidate for RhIg- Patient is Rh Positive.Performed at [facility] Laboratory Services - [facility] Blood [address] Free: [phone] No. [id number] [facility] (D) IMMUNE [id number] 17:19:57* Test Item Value Reference Range Interpretation Comme nts RHIG CANDIDATE? (test code = 5188) No- see comment Patient is not a candidate for RhIg- Patient is Rh Positive.Performed at [facility] Laboratory Services - [facility] Blood [address] Free: [phone] No. [id number] [facility] ONLY - SYPHILIS [id number] 16:14:32* Test Item Value Reference Range Interpretation Comme nts Syphilis IgG/IgM (test code = 29740-6) Non-reactive Non-reactive MOUNIKA (test code = MOUNIKA) Non-reactive - No serologic evidence of T. pallidum infection. Cannot exclude incubating or early syphilis. Submit a second specimen in 2-4 weeks if syphilis is clinically suspected. Equivocal - Further testing to follow. Reactive - Further testing to follow. Lab Interpretation (test code = 47430-5) Normal [facility] ONLY - SYPHILIS [id number] 16:14:32* Test Item Value Reference Range Interpretation Comme nts Syphilis IgG/IgM (test code = 68997-3) Non-reactive Non-reactive MOUNIKA (test code = MOUNIKA) Non-reactive - No serologic evidence of T. pallidum infection. Cannot exclude incubating or early syphilis. Submit a second specimen in 2-4 weeks if syphilis is clinically suspected. Equivocal - Further testing to follow. Reactive - Further testing to follow. Lab Interpretation (test code = 56028-4) [facility] [id number] 15:26:08* Test Item Value Reference Range Interpretation Comme nts BASE EXCESS, CORD (test code = 9366101304) -4.5 mEq/L AC PH, CORD (BEAKER) (test c ode = 1126099318) 7.25 7.18-7.38 PC02, CORD (test code = 6663974016) 55 32-66 PO2, CORD (test code = 3397208113) 18 10-30 BICARBONATE, CORD (test code = 4735117024) 24 17-27 [facility] [id number] 15:26:08* Test Item Value Reference Range Interpretation Comme nts BASE EXCESS, CORD (test code = 1709623924) -4.5 mEq/L AC PH, CORD (BEAKER) (test c ode = 4435631660) 7.25 7.18-7.38 PC02, CORD (test code = 1448983727) 55 32-66 PO2, CORD (test code = 4643204950) 18 10-30 BICARBONATE, CORD (test code = 4742727135) 24 17-27 [facility] [id number] 15:23:46* Test Item Value Reference Range Interpretation Comme nts VENOUS BASE EXCESS, CORD (te st code = 0891017777) -4.6 mEq/L VENOUS PH, CORD (test code = 4094094584) 7.30 7.25-7.45 VENOUS PC02, CORD (test code = 8499554404) 46 27-49 VENOUS PO2, CORD (test code = 7331941510) 23 17-41 VENOUS BICARBONATE, CORD (te st code = 1084926752) 22 12-29 [facility] Cord [id number] 15:23:46* Test Item Value Reference Range Interpretation Comme nts VENOUS BASE EXCESS, CORD (te st code = 8188753969) -4.6 mEq/L VENOUS PH, CORD (test code = 4807248789) 7.30 7.25-7.45 VENOUS PC02, CORD (test code = 0654370251) 46 27-49 VENOUS PO2, CORD (test code = 3867757395) 23 17-41 VENOUS BICARBONATE, CORD (te st code = 6297677776) 22 12-29 [facility] B Surface [id number] 13:46:25 * Test Item Value Reference Range Interpretation Comme nts HBsAg Semi-Quantitative (matthew t code = 5195-3) 0.04 Negative [facility] B Surface [id number] 13:46:25 * Test Item Value Reference Range Interpretation Comme nts HBsAg Semi-Quantitative (matthew t code = 5195-3) 0.04 Negative [facility] [id number] 12:58:20* Test Item Value Reference Range Interpretation Comme nts WBC (test code = 6690-2) 9.06 4.30-11.10 RBC (test code = 789-8) 3.99 3.93-5.25 HGB (test code = 718-7) 11.5 g/dL 11.6-15.0 L HCT (test code = 4544-3) 35.6 % 35.7-45.2 L MCV (test code = 787-2) 89.2 fL 80.6-95.5 MCH (test code = 785-6) 28.8 pg 25.9-32.8 MCHC (test code = 786-4) 32.3 g/dL 31.6-35.1 RDW-SD (test code = 78803-8) 43.6 fL 39.0-49.9 RDW-CV (test code = 788-0) 13.3 % 12.0-15.5 PLT (test code = 777-3) 365 166-358 H MPV (test code = 16192-1) 9.9 fL 9.5-12.9 NRBC/100 WBC (test code = 7375574769) 0.0 0.0-10.0 NRBC x10^3 (test code = 0671653728) See_Comment [Automated messa ge] The system which generated this result transmitted reference range: 10*3/?L. The reference range was not used to interpret this result as normal/abnormal. GRAN MAT (NEUT) % (test code = 770-8) 55.9 % IMM GRAN % (test code = 2992992615) 1.10 % LYMPH % (test code = 736-9) 35.4 % MONO % (test code = 5905-5) 6.5 % EOS % (test code = 713-8) 0.8 % BASO % (test code = 706-2) 0.3 % GRAN MAT x10^3(ANC) (test code = 0476893060) 5.06 10*3/uL 1.88-7.09 IMM GRAN x10^3 (test code = 0076154109) 0.10 10*3/uL 0.00-0.06 H LYMPH x10^3 (test code = 731-0) 3.21 10*3/uL 1.32-3.29 MONO x10^3 (test code = 742-7) 0.59 10*3/uL 0.33-0.92 EOS x10^3 (test code = 711-2) 0.07 10*3/uL 0.03-0.39 BASO x10^3 (test code = 704-7) 0.03 10*3/uL 0.01-0.07 Lab Interpretation (test code = 01441-4) Abnormal [facility] [id number] 12:58:20* Test Item Value Reference Range Interpretation Comme nts WBC (test code = 6690-2) 9.06 4.30-11.10 RBC (test code = 789-8) 3.99 3.93-5.25 HGB (test code = 718-7) 11.5 g/dL 11.6-15.0 L HCT (test code = 4544-3) 35.6 % 35.7-45.2 L MCV (test code = 787-2) 89.2 fL 80.6-95.5 MCH (test code = 785-6) 28.8 pg 25.9-32.8 MCHC (test code = 786-4) 32.3 g/dL 31.6-35.1 RDW-SD (test code = 21267-9) 43.6 fL 39.0-49.9 RDW-CV (test code = 788-0) 13.3 % 12.0-15.5 PLT (test code = 777-3) 365 166-358 H MPV (test code = 30743-5) 9.9 fL 9.5-12.9 NRBC/100 WBC (test code = 5880828189) 0.0 0.0-10.0 NRBC x10^3 (test code = 3733102765) See_Comment [Automated messa ge] The system which generated this result transmitted reference range: 10*3/?L. The reference range was not used to interpret this result as normal/abnormal. GRAN MAT (NEUT) % (test code = 770-8) 55.9 % IMM GRAN % (test code = 7433158987) 1.10 % LYMPH % (test code = 736-9) 35.4 % MONO % (test code = 5905-5) 6.5 % EOS % (test code = 713-8) 0.8 % BASO % (test code = 706-2) 0.3 % GRAN MAT x10^3(ANC) (test code = 6078605600) 5.06 10*3/uL 1.88-7.09 IMM GRAN x10^3 (test code = 0947272304) 0.10 10*3/uL 0.00-0.06 H LYMPH x10^3 (test code = 731-0) 3.21 10*3/uL 1.32-3.29 MONO x10^3 (test code = 742-7) 0.59 10*3/uL 0.33-0.92 EOS x10^3 (test code = 711-2) 0.07 10*3/uL 0.03-0.39 BASO x10^3 (test code = 704-7) 0.03 10*3/uL 0.01-0.07 Lab Interpretation (test code = 55985-4) Abnormal [facility] GLUCOSE (AUTOMATED)2023-08-08 12:51:35* Test Item Value Reference Range Interpretation Comme nts POCT GLU (test code = 4685392897) 93 mg/dL 70-110 Lab Interpretation (test cod e = 81476-1) Normal [facility] GLUCOSE (AUTOMATED)2023-08-08 12:51:35* Test Item Value Reference Range Interpretation Comme nts POCT GLU (test code = 4454496544) 93 mg/dL 70-110 Lab Interpretation (test cod e = 59662-7) Normal [facility] Screen - ONCE [id number] 12:49:00* Test Item Value Reference Range Interpretation Comme nts ABO & RH (test code = 20) O POSITIVE IAT (test code = 1185) Negative [facility] - ONCE [id number] 12:49:00* Test Item Value Reference Range Interpretation Comme nts ABO & RH (test code = 20) O POSITIVE IAT (test code = 1185) Negative [facility] W SPECIFIC [id number] 20:42:00* Test Item Value Reference Range Interpretation Comme nts POCT U SP GRAV (test code = 3255) . 1.005-1.025 POCT PH U (test code = 3254) 5 mg/dl 5-8 POCT U LEUK EST (test code = 3263) neg Negative - Negative POCT U NIT (test code = 3262) neg Negative - Negati ve POCT U PROT (test code = 3259) trace Negative - Negat raul POCT U GLU (test code = 3256) neg Negative - Negati ve POCT U KETONE (test code = 3258) + Negative - Neg ative POCT U UROBILI (test code = 3260) . 0.2-1 POCT U BILI (test code = 3261) . Negative - Negat raul POCT U BLD (test code = 3257) neg Negative - Negati ve POCT U COLOR (test code = 3266) POCT U APPEAR (test code = 3267) [facility] W SPECIFIC [id number] 20:51:00* Test Item Value Reference Range Interpretation Comme nts POCT U SP GRAV (test code = 3255) . 1.005-1.025 POCT PH U (test code = 3254) 5 mg/dl 5-8 POCT U LEUK EST (test code = 3263) Trace Negative - Negative POCT U NIT (test code = 3262) Neg Negative - Negati ve POCT U PROT (test code = 3259) 1+ Negative - Negat raul POCT U GLU (test code = 3256) Nml Negative - Negati ve POCT U KETONE (test code = 3258) 1+ Negative - Neg ative POCT U UROBILI (test code = 3260) . 0.2-1 POCT U BILI (test code = 3261) . Negative - Negat raul POCT U BLD (test code = 3257) Trace Negative - Negati ve POCT U COLOR (test code = 3266) . POCT U APPEAR (test code = 3267) . [facility] URINALYSIS W SPECIFIC [id number] 15:33:00* Test Item Value Reference Range Interpretation Comme nts POCT U SP GRAV (test code = 3255) . 1.005-1.025 POCT PH U (test code = 3254) 6 mg/dl 5-8 POCT U LEUK EST (test code = 3263) + Negative - Negative POCT U NIT (test code = 3262) neg Negative - Negati ve POCT U PROT (test code = 3259) trace Negative - Negat raul POCT U GLU (test code = 3256) neg Negative - Negati ve POCT U KETONE (test code = 3258) neg Negative - Neg ative POCT U UROBILI (test code = 3260) . 0.2-1 POCT U BILI (test code = 3261) . Negative - Negat raul POCT U BLD (test code = 3257) neg Negative - Negati ve POCT U COLOR (test code = 3266) POCT U APPEAR (test code = 3267) [facility] URINALYSIS W SPECIFIC [id number] 16:12:00* Test Item Value Reference Range Interpretation Comme nts POCT U SP GRAV (test code = 3255) . 1.005-1.025 POCT PH U (test code = 3254) 6 mg/dl 5-8 POCT U LEUK EST (test code = 3263) + Negative - Negative POCT U NIT (test code = 3262) neg Negative - Negati ve POCT U PROT (test code = 3259) trace Negative - Negat raul POCT U GLU (test code = 3256) neg Negative - Negati ve POCT U KETONE (test code = 3258) neg Negative - Neg ative POCT U UROBILI (test code = 3260) . 0.2-1 POCT U BILI (test code = 3261) . Negative - Negat raul POCT U BLD (test code = 3257) neg Negative - Negati ve POCT U COLOR (test code = 3266) POCT U APPEAR (test code = 3267) [facility] URINALYSIS W SPECIFIC [id number] 18:53:00* Test Item Value Reference Range Interpretation Comme nts POCT U SP GRAV (test code = 3255) . 1.005-1.025 POCT PH U (test code = 3254) . 5-8 POCT U LEUK EST (test code = 3263) . Negative - N egative POCT U NIT (test code = 3262) . Negative - Negati ve POCT U PROT (test code = 3259) trace Negative - Negat raul POCT U GLU (test code = 3256) neg Negative - Negati ve POCT U KETONE (test code = 3258) . Negative - Neg ative POCT U UROBILI (test code = 3260) . 0.2-1 POCT U BILI (test code = 3261) . Negative - Negat raul POCT U BLD (test code = 3257) . Negative - Negati ve POCT U COLOR (test code = 3266) POCT U APPEAR (test code = 3267) [facility] URINALYSIS W SPECIFIC [id number] 15:20:00* Test Item Value Reference Range Interpretation Comme nts POCT U SP GRAV (test code = 3255) . 1.005-1.025 POCT PH U (test code = 3254) 5 mg/dl 5-8 POCT U LEUK EST (test code = 3263) 2+ Negative - Negative POCT U NIT (test code = 3262) Neg Negative - Negati ve POCT U PROT (test code = 3259) 1+ Negative - Negat raul POCT U GLU (test code = 3256) Nml Negative - Negati ve POCT U KETONE (test code = 3258) NOne Negative - Neg ative POCT U UROBILI (test code = 3260) . 0.2-1 POCT U BILI (test code = 3261) . Negative - Negat raul POCT U BLD (test code = 3257) Trace Negative - Negati ve POCT U COLOR (test code = 3266) . POCT U APPEAR (test code = 3267) . [facility] URINALYSIS W SPECIFIC [id number] 20:20:00* Test Item Value Reference Range Interpretation Comme nts POCT U SP GRAV (test code = 3255) norm 1.005-1.025 POCT PH U (test code = 3254) . 5-8 POCT U LEUK EST (test code = 3263) . Negative - N egative POCT U NIT (test code = 3262) . Negative - Negati ve POCT U PROT (test code = 3259) + Negative - Negat raul POCT U GLU (test code = 3256) 50 Negative - Negati ve POCT U KETONE (test code = 3258) . Negative - Neg ative POCT U UROBILI (test code = 3260) . 0.2-1 POCT U BILI (test code = 3261) . Negative - Negat raul POCT U BLD (test code = 3257) . Negative - Negati ve POCT U COLOR (test code = 3266) POCT U APPEAR (test code = 3267) [facility] URINALYSIS W SPECIFIC [id number] 14:55:00* Test Item Value Reference Range Interpretation Comme nts POCT U SP GRAV (test code = 3255) . 1.005-1.025 POCT PH U (test code = 3254) . 5-8 POCT U LEUK EST (test code = 3263) . Negative - N egative POCT U NIT (test code = 3262) . Negative - Negati ve POCT U PROT (test code = 3259) trace Negative - Negat raul POCT U GLU (test code = 3256) neg Negative - Negati ve POCT U KETONE (test code = 3258) . Negative - Neg ative POCT U UROBILI (test code = 3260) . 0.2-1 POCT U BILI (test code = 3261) . Negative - Negat raul POCT U BLD (test code = 3257) . Negative - Negati ve POCT U COLOR (test code = 3266) . POCT U APPEAR (test code = 3267) . [facility] URINALYSIS W SPECIFIC [id number] 20:39:00* Test Item Value Reference Range Interpretation Comme nts POCT U SP GRAV (test code = 3255) . 1.005-1.025 POCT PH U (test code = 3254) 6 mg/dl 5-8 POCT U LEUK EST (test code = 3263) Trace Negative - Negative POCT U NIT (test code = 3262) Neg Negative - Negati ve POCT U PROT (test code = 3259) Trace Negative - Negat raul POCT U GLU (test code = 3256) Nml Negative - Negati ve POCT U KETONE (test code = 3258) 2+ Negative - Neg ative POCT U UROBILI (test code = 3260) . 0.2-1 POCT U BILI (test code = 3261) . Negative - Negat raul POCT U BLD (test code = 3257) Trace Negative - Negati ve POCT U COLOR (test code = 3266) . POCT U APPEAR (test code = 3267) [facility] URINALYSIS W SPECIFIC [id number] 14:40:00* Test Item Value Reference Range Interpretation Comme nts POCT U SP GRAV (test code = 3255) . 1.005-1.025 POCT PH U (test code = 3254) 6 mg/dl 5-8 POCT U LEUK EST (test code = 3263) trace Negative - Negative POCT U NIT (test code = 3262) neg Negative - Negati ve POCT U PROT (test code = 3259) trace Negative - Negat raul POCT U GLU (test code = 3256) neg Negative - Negati ve POCT U KETONE (test code = 3258) 3+ Negative - Neg ative POCT U UROBILI (test code = 3260) . 0.2-1 POCT U BILI (test code = 3261) . Negative - Negat raul POCT U BLD (test code = 3257) neg Negative - Negati ve POCT U COLOR (test code = 3266) . POCT U APPEAR (test code = 3267) . [facility] URINALYSIS W SPECIFIC [id number] 15:18:00* Test Item Value Reference Range Interpretation Comme nts POCT U SP GRAV (test code = 3255) . 1.005-1.025 POCT PH U (test code = 3254) 5 mg/dl 5-8 POCT U LEUK EST (test code = 3263) 1+ Negative - Negative POCT U NIT (test code = 3262) Neg Negative - Negati ve POCT U PROT (test code = 3259) 1+ Negative - Negat raul POCT U GLU (test code = 3256) Nml Negative - Negati ve POCT U KETONE (test code = 3258) Small Negative - Neg ative POCT U UROBILI (test code = 3260) . 0.2-1 POCT U BILI (test code = 3261) . Negative - Negat raul POCT U BLD (test code = 3257) Trace Negative - Negati ve POCT U COLOR (test code = 3266) . POCT U APPEAR (test code = 3267) [facility] URINALYSIS W SPECIFIC [id number] 15:51:00* Test Item Value Reference Range Interpretation Comme nts POCT U SP GRAV (test code = 3255) . 1.005-1.025 POCT PH U (test code = 3254) 5 mg/dl 5-8 POCT U LEUK EST (test code = 3263) 1+ Negative - Negative POCT U NIT (test code = 3262) neg Negative - Negati ve POCT U PROT (test code = 3259) trace Negative - Negat raul POCT U GLU (test code = 3256) neg Negative - Negati ve POCT U KETONE (test code = 3258) 1+ Negative - Neg ative POCT U UROBILI (test code = 3260) . 0.2-1 POCT U BILI (test code = 3261) . Negative - Negat raul POCT U BLD (test code = 3257) neg Negative - Negati ve POCT U COLOR (test code = 3266) . POCT U APPEAR (test code = 3267) . [facility] URINALYSIS W SPECIFIC [id number] 15:51:00* Test Item Value Reference Range Interpretation Comme nts POCT U SP GRAV (test code = 3255) . 1.005-1.025 POCT PH U (test code = 3254) 5 mg/dl 5-8 POCT U LEUK EST (test code = 3263) 1+ Negative - Negative POCT U NIT (test code = 3262) neg Negative - Negati ve POCT U PROT (test code = 3259) trace Negative - Negat raul POCT U GLU (test code = 3256) neg Negative - Negati ve POCT U KETONE (test code = 3258) 1+ Negative - Neg ative POCT U UROBILI (test code = 3260) . 0.2-1 POCT U BILI (test code = 3261) . Negative - Negat raul POCT U BLD (test code = 3257) neg Negative - Negati ve POCT U COLOR (test code = 3266) . POCT U APPEAR (test code = 3267) . [facility] URINALYSIS W SPECIFIC [id number] 15:51:00* Test Item Value Reference Range Interpretation Comme nts POCT U SP GRAV (test code = 3255) . 1.005-1.025 POCT PH U (test code = 3254) 5 mg/dl 5-8 POCT U LEUK EST (test code = 3263) 1+ Negative - Negative POCT U NIT (test code = 3262) neg Negative - Negati ve POCT U PROT (test code = 3259) trace Negative - Negat raul POCT U GLU (test code = 3256) neg Negative - Negati ve POCT U KETONE (test code = 3258) 1+ Negative - Neg ative POCT U UROBILI (test code = 3260) . 0.2-1 POCT U BILI (test code = 3261) . Negative - Negat raul POCT U BLD (test code = 3257) neg Negative - Negati ve POCT U COLOR (test code = 3266) . POCT U APPEAR (test code = 3267) . [facility] URINALYSIS W SPECIFIC [id number] 15:51:00* Test Item Value Reference Range Interpretation Comme nts POCT U SP GRAV (test code = 3255) . 1.005-1.025 POCT PH U (test code = 3254) 5 mg/dl 5-8 POCT U LEUK EST (test code = 3263) 1+ Negative - Negative POCT U NIT (test code = 3262) neg Negative - Negati ve POCT U PROT (test code = 3259) trace Negative - Negat raul POCT U GLU (test code = 3256) neg Negative - Negati ve POCT U KETONE (test code = 3258) 1+ Negative - Neg ative POCT U UROBILI (test code = 3260) . 0.2-1 POCT U BILI (test code = 3261) . Negative - Negat raul POCT U BLD (test code = 3257) neg Negative - Negati ve POCT U COLOR (test code = 3266) . POCT U APPEAR (test code = 3267) . [facility] URINALYSIS W SPECIFIC [id number] 15:51:00* Test Item Value Reference Range Interpretation Comme nts POCT U SP GRAV (test code = 3255) . 1.005-1.025 POCT PH U (test code = 3254) 5 mg/dl 5-8 POCT U LEUK EST (test code = 3263) 1+ Negative - Negative POCT U NIT (test code = 3262) neg Negative - Negati ve POCT U PROT (test code = 3259) trace Negative - Negat raul POCT U GLU (test code = 3256) neg Negative - Negati ve POCT U KETONE (test code = 3258) 1+ Negative - Neg ative POCT U UROBILI (test code = 3260) . 0.2-1 POCT U BILI (test code = 3261) . Negative - Negat raul POCT U BLD (test code = 3257) neg Negative - Negati ve POCT U COLOR (test code = 3266) . POCT U APPEAR (test code = 3267) . [facility] URINALYSIS W SPECIFIC [id number] 15:01:00* Test Item Value Reference Range Interpretation Comme nts POCT U SP GRAV (test code = 3255) . 1.005-1.025 POCT PH U (test code = 3254) 5 mg/dl 5-8 POCT U LEUK EST (test code = 3263) 1+ Negative - Negative POCT U NIT (test code = 3262) neg Negative - Negati ve POCT U PROT (test code = 3259) trace Negative - Negat raul POCT U GLU (test code = 3256) neg Negative - Negati ve POCT U KETONE (test code = 3258) 1+ Negative - Neg ative POCT U UROBILI (test code = 3260) . 0.2-1 POCT U BILI (test code = 3261) . Negative - Negat raul POCT U BLD (test code = 3257) neg Negative - Negati ve POCT U COLOR (test code = 3266) . POCT U APPEAR (test code = 3267) . [facility] URINALYSIS W SPECIFIC [id number] 15:01:00* Test Item Value Reference Range Interpretation Comme nts POCT U SP GRAV (test code = 3255) . 1.005-1.025 POCT PH U (test code = 3254) 5 mg/dl 5-8 POCT U LEUK EST (test code = 3263) 1+ Negative - Negative POCT U NIT (test code = 3262) neg Negative - Negati ve POCT U PROT (test code = 3259) trace Negative - Negat raul POCT U GLU (test code = 3256) neg Negative - Negati ve POCT U KETONE (test code = 3258) 1+ Negative - Neg ative POCT U UROBILI (test code = 3260) . 0.2-1 POCT U BILI (test code = 3261) . Negative - Negat raul POCT U BLD (test code = 3257) neg Negative - Negati ve POCT U COLOR (test code = 3266) . POCT U APPEAR (test code = 3267) . [facility] URINALYSIS W SPECIFIC [id number] 15:16:00* Test Item Value Reference Range Interpretation Comme nts POCT U SP GRAV (test code = 3255) . 1.005-1.025 POCT PH U (test code = 3254) 6 mg/dl 5-8 POCT U LEUK EST (test code = 3263) trace Negative - Negative POCT U NIT (test code = 3262) negative Negative - Negati ve POCT U PROT (test code = 3259) trace Negative - Negat raul POCT U GLU (test code = 3256) negative Negative - Negati ve POCT U KETONE (test code = 3258) negative Negative - Neg ative POCT U UROBILI (test code = 3260) . 0.2-1 POCT U BILI (test code = 3261) . Negative - Negat raul POCT U BLD (test code = 3257) negative Negative - Negati ve POCT U COLOR (test code = 3266) . POCT U APPEAR (test code = 3267) . [facility] URINALYSIS W SPECIFIC [id number] 19:01:00* Test Item Value Reference Range Interpretation Comme nts POCT U SP GRAV (test code = 3255) . 1.005-1.025 POCT PH U (test code = 3254) 6 mg/dl 5-8 POCT U LEUK EST (test code = 3263) negative Negative - Negative POCT U NIT (test code = 3262) negative Negative - Negati ve POCT U PROT (test code = 3259) trace Negative - Negat raul POCT U GLU (test code = 3256) negative Negative - Negati ve POCT U KETONE (test code = 3258) negative Negative - Neg ative POCT U UROBILI (test code = 3260) . 0.2-1 POCT U BILI (test code = 3261) . Negative - Negat raul POCT U BLD (test code = 3257) negative Negative - Negati ve POCT U COLOR (test code = 3266) . POCT U APPEAR (test code = 3267) . [facility] URINALYSIS W SPECIFIC [id number] 15:07:00* Test Item Value Reference Range Interpretation Comme nts POCT U SP GRAV (test code = 3255) NA 1.005-1.025 POCT PH U (test code = 3254) 5 mg/dl 5-8 POCT U LEUK EST (test code = 3263) ++ Negative - Negative POCT U NIT (test code = 3262) Neg Negative - Negati ve POCT U PROT (test code = 3259) Neg Negative - Negat raul POCT U GLU (test code = 3256) Normal Negative - Negati ve POCT U KETONE (test code = 3258) Neg Negative - Neg ative POCT U UROBILI (test code = 3260) NA 0.2-1 POCT U BILI (test code = 3261) NA Negative - Negat raul POCT U BLD (test code = 3257) Neg Negative - Negati ve POCT U COLOR (test code = 3266) POCT U APPEAR (test code = 3267) Lab Interpretation (test cod e = [id number]) Abnormal [facility] URINALYSIS W SPECIFIC [id number] 15:07:00* Test Item Value Reference Range Interpretation Comme nts POCT U SP GRAV (test code = 3255) NA 1.005-1.025 POCT PH U (test code = 3254) 5 mg/dl 5-8 POCT U LEUK EST (test code = 3263) ++ Negative - Negative POCT U NIT (test code = 3262) Neg Negative - Negati ve POCT U PROT (test code = 3259) Neg Negative - Negat raul POCT U GLU (test code = 3256) Normal Negative - Negati ve POCT U KETONE (test code = 3258) Neg Negative - Neg ative POCT U UROBILI (test code = 3260) NA 0.2-1 POCT U BILI (test code = 3261) NA Negative - Negat raul POCT U BLD (test code = 3257) Neg Negative - Negati ve POCT U COLOR (test code = 3266) POCT U APPEAR (test code = 3267) Lab Interpretation (test cod e = [id number]) Abnormal [facility] URINALYSIS W SPECIFIC [id number] 15:27:00* Test Item Value Reference Range Interpretation Comme nts POCT U SP GRAV (test code = 3255) . 1.005-1.025 POCT PH U (test code = 3254) 5 mg/dl 5-8 POCT U LEUK EST (test code = 3263) trace Negative - Negative POCT U NIT (test code = 3262) negative Negative - Negati ve POCT U PROT (test code = 3259) trace Negative - Negat raul POCT U GLU (test code = 3256) normal Negative - Negati ve POCT U KETONE (test code = 3258) 2+ Negative - Neg ative POCT U UROBILI (test code = 3260) . 0.2-1 POCT U BILI (test code = 3261) . Negative - Negat raul POCT U BLD (test code = 3257) trace Negative - Negati ve POCT U COLOR (test code = 3266) . POCT U APPEAR (test code = 3267) . [facility] URINALYSIS W SPECIFIC [id number] 16:11:00* Test Item Value Reference Range Interpretation Comme nts POCT U SP GRAV (test code = 3255) . 1.005-1.025 POCT PH U (test code = 3254) 5 mg/dl 5-8 POCT U LEUK EST (test code = 3263) 2+ Negative - Negative POCT U NIT (test code = 3262) negative Negative - Negati ve POCT U PROT (test code = 3259) trace Negative - Negat raul POCT U GLU (test code = 3256) negative Negative - Negati ve POCT U KETONE (test code = 3258) negative Negative - Neg ative POCT U UROBILI (test code = 3260) . 0.2-1 POCT U BILI (test code = 3261) . Negative - Negat raul POCT U BLD (test code = 3257) negative Negative - Negati ve POCT U COLOR (test code = 3266) . POCT U APPEAR (test code = 3267) . [facility] URINALYSIS W SPECIFIC [id number] 15:35:00* Test Item Value Reference Range Interpretation Comme nts POCT U SP GRAV (test code = 3255) . 1.005-1.025 POCT PH U (test code = 3254) . 5-8 POCT U LEUK EST (test code = 3263) . Negative - N egative POCT U NIT (test code = 3262) . Negative - Negati ve POCT U PROT (test code = 3259) trace Negative - Negat raul POCT U GLU (test code = 3256) neg Negative - Negati ve POCT U KETONE (test code = 3258) . Negative - Neg ative POCT U UROBILI (test code = 3260) . 0.2-1 POCT U BILI (test code = 3261) . Negative - Negat raul POCT U BLD (test code = 3257) . Negative - Negati ve POCT U COLOR (test code = 3266) . POCT U APPEAR (test code = 3267) . [facility] URINALYSIS W SPECIFIC [id number] 15:02:00* Test Item Value Reference Range Interpretation Comme nts POCT U SP GRAV (test code = 3255) . 1.005-1.025 POCT PH U (test code = 3254) . 5-8 POCT U LEUK EST (test code = 3263) . Negative - N egative POCT U NIT (test code = 3262) . Negative - Negati ve POCT U PROT (test code = 3259) trace Negative - Negat raul POCT U GLU (test code = 3256) neg Negative - Negati ve POCT U KETONE (test code = 3258) . Negative - Neg ative POCT U UROBILI (test code = 3260) . 0.2-1 POCT U BILI (test code = 3261) . Negative - Negat raul POCT U BLD (test code = 3257) . Negative - Negati ve POCT U COLOR (test code = 3266) . POCT U APPEAR (test code = 3267) . [facility] URINALYSIS W/O SPECIFIC [id number] 13:31:00* Test Item Value Reference Range Interpretation Comme nts POCT PH U (test code = 3254) . 5-8 POCT U LEUK EST (test code = 3263) . Negative - N egative POCT U NIT (test code = 3262) . Negative - Negati ve POCT U PROT (test code = 3259) 30+ Negative - Negat raul POCT U GLU (test code = 3256) neg Negative - Negati ve POCT U KETONE (test code = 3258) . Negative - Neg ative POCT U BLD (test code = 3257) . Negative - Negati ve [facility] [id number] 13:30:00* Test Item Value Reference Range Interpretation Comme [facility] POCT PREG (test code = 1605) Positive On board controls acceptable with C Line (test code = 3574) Yes POCT PREG LOT # (test code = 3575) POCT PREG TEST DATE ( test code = 3576) [facility] [id number] 05:44:31* Test Item Value Reference Range Interpretation Comme [facility] VITAMIN D, 25 OH (test code = 4958) 13 NG/ML SEE BELOW L EFFECTIVE 02/2023, PLEASE NOTE NEW METHODOLOGY IS ELECTROCHEMILUMINESCENCE BINDING ASSAY. NOTE: 25-HYDROXYVITAMIN D ASSAY INCLUDES 25-HYDROXYVITAMIN D2 AND D3. INTERPRETIVE RANGES PEDIATRIC (<17 YEARS) . . . . . . . . . . . NG/ML 20-100ADULT: INSUFFICIENT . . . . . . . . . . . . . . NG/ML <20 SUBOPTIMAL . . . . . . . . . . . . . . . NG/ML 20-29 OPTIMAL . . . . . . . . . . . . . . . . . NG/ML 30-100 TSH, THIRD [id number] 05:43:43* Test Item Value Reference Range Interpretation Comme nts TSH, THIRD GENERATION (test code = 2821) 1.480 UIU/ML 0.400-4.100 [id number] 05:43:16* Test Item Value Reference Range Interpretation Comme nts LIPASE (test code = 2058) 20 U/L 13-60 [id number] 05:43:16* Test Item Value Reference Range Interpretation Comme nts AMYLASE (test code = 220) 41 U/L 28-100 COMPREHENSIVE METABOLIC [id number] 04:44:41* Test Item Value Reference Range Interpretation Comme nts GLUCOSE (test code = 2217) 87 MG/DL 70-99 BUN (test code = 2207) 7 MG/DL 6-20 CREATININE (test code = 2214) 0.64 MG/DL 0.60-1.30 eGFR (2020 CKD-EPI) (test code = 55247) 128 ML/MIN/1.73 >60 CALC BUN/CREAT (test code = 2235) 11 RATIO 6-28 SODIUM (test code = 2231) 137 MEQ/L 133-146 POTASSIUM (test code = 2227) 4.2 MEQ/L 3.5-5.4 CHLORIDE (test code = 2214) 103 MEQ/L 95-107 CARBON DIOXIDE (test code = 2205) 21 MEQ/L 19-31 CALCIUM (test code = 2208) 8.9 MG/DL 8.5-10.5 PROTEIN, TOTAL (test code = 2228) 6.9 G/DL 6.1-8.3 ALBUMIN (test code = 2200) 4.5 G/DL 3.5-5.2 CALC GLOBULIN (test code = 2239) 2.4 G/DL 1.9-3.7 CALC A/G RATIO (test code = 2233) 1.9 RATIO 1.0-2.6 BILIRUBIN, TOTAL (test code = 2206) 0.3 MG/DL See_Comment [Automated me ssage] The system which generated this result transmitted reference range: <=1.2. The reference range was not used to interpret this result as normal/abnormal. ALKALINE PHOSPHATASE (test code = 2203) 68 U/L 38-117 AST (test code = 2217) 17 U/L 9-40 ALT (test code = 2218) 13 U/L 5-40 HEMOGLOBIN [id number] 04:21:32* Test Item Value Reference Range Interpretation Comme nts HEMOGLOBIN A1c (test code = 45301) 5.8 % 4.2-5.6 H [employer] GUIDELINES FOR HGB A1C: PREDIABETES/INCREASED RISK . . . . . . . 5.7-6.4% DIAGNOSIS OF DIABETES . . . . . . . . . >=6.5% WITH CONFIRMATION OR APPROPRIATE SYMPTOMS NOTE: ASSAY MAY BE AFFECTED BY HEMOGLOBINOPATHIES (SICKLE CELL ANEMIA, S-C DISEASE, OTHERS) OR ARTIFICIALLY LOWERED BY DECREASED RED CELL SURVIVAL (HEMOLYTIC ANEMIAS, BLOOD LOSS, ETC.). CONSIDER ALTERNATE TESTING OR LABORATORY CONSULTATION. CBC W/AUTO DIFF WITH [id number] 03:41:46* Test Item Value Reference Range Interpretation Comme nts WBC (test code = 1001) 10.4 K/UL 3.5-11.0 RBC (test code = 1002) 4.46 M/UL 3.80-5.40 HEMOGLOBIN (test code = 1003) 13.8 G/DL 11.5-15.5 HEMATOCRIT (test code = 1004) 40.7 % 34.0-45.0 MCV (test code = 1005) 91.3 fL 80.0-99.0 MCH (test code = 1006) 30.9 PG 25.0-33.0 MCHC (test code = 1007) 33.9 G/DL 31.0-36.0 RDW (test code = 1038) 12.3 % 11.5-15.0 NEUTROPHILS (test code = 1008) 64.6 % LYMPHOCYTES (test code = 1010) 27.3 % MONOCYTES (test code = 1011) 6.7 % EOSINOPHILS (test code = 1012) 0.7 % BASOPHILS (test code = 1013) 0.3 % IMMATURE GRANULOCYTES (test code = 1036) 0.4 % NUCLEATED RBCS (test code = 1065) 0.0 /100 WBC'S See_Comment [Automated message] The system which generated this result transmitted reference range: 0.0. The reference range was not used to interpret this result as normal/abnormal. PLATELET COUNT (test code = 1015) 399 K/UL 130-400 ABSOLUTE NEUTROPHILS (test code = 1066) 6.71 K/UL 1.50-7.50 ABSOLUTE LYMPHOCYTES (test code = 1067) 2.83 K/UL 1.00-4.00 ABSOLUTE MONOCYTES (test code = 1068) 0.70 K/UL 0.20-1.00 ABSOLUTE EOSINOPHILS (test code = 1040) 0.07 K/UL 0.00-0.50 ABSOLUTE BASOPHILS (test code = 1069) 0.03 K/UL 0.00-0.20 ABS IMMATURE GRANULOCYTES (test code = 1020) 0.04 K/UL 0.00-0.10 ABS NUCLEATED RBCS (test code = 64089) 0.00 K/UL 0.00-0.11 UNLESS OTHER DAVID INDICATED, ALL TESTING PERFORMED AT [facility] [address] [place] [id number] [employer]: NAM GARCIA M.D. CLIA NUMBER [id number] [place]. [id number] URINE DRUG (IMMUNOASSAY) - COMPREHENSIVE DRUG SCREEN W/O [id number] 23:54:50* Test Item Value Reference Range Interpretation Comme nts AMPHET (test code = 1592748048) Negative Negative XANDER U (test code = 7565719123) Negative Negative BENZO U (test code = 1285799817) Negative Negative Cocaine Metabolite (test code = 0796182791) Negative Negative METHADONE (test code = 2602989471) Negative Negative OPIATES (test code = 3121901139) Negative Negative PCP (test code = 4401039892) Negative Negative THC (test code = 2920667201) Negative Negative MOUNIKA (test code = MOUNIKA) [...] legal testing). Lab Interpretation (test code = 57182-7) [facility] - COMPREHENSIVE DRUG SCREEN W/O [id number] 23:54:50* Test Item Value Reference Range Interpretation Comme nts AMPHET (test code = 8528927453) Negative Negative XANDER U (test code = 3235231226) Negative Negative BENZO U (test code = 8053587200) Negative Negative Cocaine Metabolite (test code = 2634133682) Negative Negative METHADONE (test code = 2862696214) Negative Negative OPIATES (test code = 1249285183) Negative Negative PCP (test code = 2435322543) Negative Negative THC (test code = 5543036273) Negative Negative MOUNIKA (test code = MOUNIKA) [...] legal testing). Lab Interpretation (test code = 97537-3) Normal [facility] WITH [id number] 23:41:50* Test Item Value Reference Range Interpretation Comme nts WBC (test code = 6690-2) See_Comment H [Automated messa ge] The system which generated this result transmitted reference range: 4.30 - 11.10 10*3/?L. The reference range was not used to interpret this result as normal/abnormal. RBC (test code = 789-8) See_Comment [Automated messa ge] The system which generated this result transmitted reference range: 3.93 - 5.25 10*6/?L. The reference range was not used to interpret this result as normal/abnormal. HGB (test code = 718-7) 15.0 g/dL 11.6-15.0 HCT (test code = 4544-3) 45.8 % 35.7-45.2 H MCV (test code = 787-2) 90.5 fL 80.6-95.5 MCH (test code = 785-6) 29.6 pg 25.9-32.8 MCHC (test code = 786-4) 32.8 g/dL 31.6-35.1 RDW-SD (test code = 08121-1) 40.1 fL 39.0-49.9 RDW-CV (test code = 788-0) 12.2 % 12.0-15.5 PLT (test code = 777-3) See_Comment H [Automated messa ge] The system which generated this result transmitted reference range: 166 - 358 10*3/?L. The reference range was not used to interpret this result as normal/abnormal. MPV (test code = 62236-3) 8.5 fL 9.5-12.9 L NRBC/100 WBC (test code = 5839507216) See_Comment [Automated [email or web address] ssage] The system which generated this result transmitted reference range: 0.0 - 10.0 /100 WBCs. The reference range was not used to interpret this result as normal/abnormal. NRBC x10^3 (test code = 1279212639) <0.01 See_Comment [Automated messa ge] The system which generated this result transmitted reference range: 10*3/?L. The reference range was not used to interpret this result as normal/abnormal. GRAN MAT (NEUT) % (test code = 770-8) 61.1 % IMM GRAN % (test code = 6966570378) 0.50 % LYMPH % (test code = 736-9) 34.0 % MONO % (test code = 5905-5) 3.8 % EOS % (test code = 713-8) 0.3 % BASO % (test code = 706-2) 0.3 % GRAN MAT x10^3(ANC) (test code = 0827021405) 6.98 10*3/uL 1.88-7.09 IMM GRAN x10^3 (test code = 0455611470) 0.06 10*3/uL 0.00-0.06 LYMPH x10^3 (test code = 731-0) 3.89 10*3/uL 1.32-3.29 H MONO x10^3 (test code = 742-7) 0.44 10*3/uL 0.33-0.92 EOS x10^3 (test code = 711-2) 0.03 10*3/uL 0.03-0.39 BASO x10^3 (test code = 704-7) 0.04 10*3/uL 0.01-0.07 ROULEAUX (test code = 7797-4) Present See_Comment A [Automated messa ge] The system which generated this result transmitted reference range: (none). The reference range was not used to interpret this result as normal/abnormal. REACT LYMPHS (test code = 7406026713) Rare Lab Interpretation (test code = 40287-3) Abnormal [facility] WITH [id number] 23:41:50* Test Item Value Reference Range Interpretation Comme nts WBC (test code = 6690-2) See_Comment H [Automated messa ge] The system which generated this result transmitted reference range: 4.30 - 11.10 10*3/?L. The reference range was not used to interpret this result as normal/abnormal. RBC (test code = 789-8) See_Comment [Automated messa ge] The system which generated this result transmitted reference range: 3.93 - 5.25 10*6/?L. The reference range was not used to interpret this result as normal/abnormal. HGB (test code = 718-7) 15.0 g/dL 11.6-15.0 HCT (test code = 4544-3) 45.8 % 35.7-45.2 H MCV (test code = 787-2) 90.5 fL 80.6-95.5 MCH (test code = 785-6) 29.6 pg 25.9-32.8 MCHC (test code = 786-4) 32.8 g/dL 31.6-35.1 RDW-SD (test code = 20680-0) 40.1 fL 39.0-49.9 RDW-CV (test code = 788-0) 12.2 % 12.0-15.5 PLT (test code = 777-3) See_Comment H [Automated messa ge] The system which generated this result transmitted reference range: 166 - 358 10*3/?L. The reference range was not used to interpret this result as normal/abnormal. MPV (test code = 85964-0) 8.5 fL 9.5-12.9 L NRBC/100 WBC (test code = 5200678380) See_Comment [Automated [email or web address] ssage] The system which generated this result transmitted reference range: 0.0 - 10.0 /100 WBCs. The reference range was not used to interpret this result as normal/abnormal. NRBC x10^3 (test code = 0586121465) <0.01 See_Comment [Automated messa ge] The system which generated this result transmitted reference range: 10*3/?L. The reference range was not used to interpret this result as normal/abnormal. GRAN MAT (NEUT) % (test code = 770-8) 61.1 % IMM GRAN % (test code = 7474208475) 0.50 % LYMPH % (test code = 736-9) 34.0 % MONO % (test code = 5905-5) 3.8 % EOS % (test code = 713-8) 0.3 % BASO % (test code = 706-2) 0.3 % GRAN MAT x10^3(ANC) (test code = 1081388672) 6.98 10*3/uL 1.88-7.09 IMM GRAN x10^3 (test code = 1585996848) 0.06 10*3/uL 0.00-0.06 LYMPH x10^3 (test code = 731-0) 3.89 10*3/uL 1.32-3.29 H MONO x10^3 (test code = 742-7) 0.44 10*3/uL 0.33-0.92 EOS x10^3 (test code = 711-2) 0.03 10*3/uL 0.03-0.39 BASO x10^3 (test code = 704-7) 0.04 10*3/uL 0.01-0.07 ROULEAUX (test code = 7797-4) Present See_Comment A [Automated Affresola ge] The system which generated this result transmitted reference range: (none). The reference range was not used to interpret this result as normal/abnormal. REACT LYMPHS (test code = 8172385252) Rare Lab Interpretation (test code = 77236-7) [facility]* Test Item Value Reference Range Interpretation Comme nts APPEARANCE (test code = 3296795320) Hazy Clear A COLOR (test code = 5248737409) Yellow Yellow PH (test code = 6508370773) 4.8-8.0 SP GRAVITY (test code = 1541788983) 1.003-1.030 GLU U QUAL (test code = 9669063567) Normal Normal BLOOD (test code = 5987909003) 3+ Negative A KETONES (test code = 3392942862) 20 mg/dL Negative A PROTEIN (test code = 2887-8) Negative Negative UROBILIN (test code = 8140933269) Normal Normal BILIRUBIN (test code = 3096079454) Negative Negative NITRITE (test code = 6939389129) Negative Negative LEUK ERICA (test code = 6361419598) Negative Negative RBC/HPF (test code = 7999625194) See_Comment H [Automated Affresola ge] The system which generated this result transmitted reference range: 0 - 3 HPF. The reference range was not used to interpret this result as normal/abnormal. WBC/HPF (test code = 9793781462) See_Comment H [Automated messa ge] The system which generated this result transmitted reference range: 0 - 5 HPF. The reference range was not used to interpret this result as normal/abnormal. BACTERIA (test code = 8499439118) Moderate Negative A MUCOUS (test code = 8716806547) Slight Negative LPF A SQ EPITH (test code = 9549959587) HPF Lab Interpretation (test code = 31041-5) [facility] 23:21:36* Test Item Value Reference Range Interpretation Comme nts APPEARANCE (test code = 4676120603) Hazy Clear A COLOR (test code = 3594885499) Yellow Yellow PH (test code = 1295845850) 4.8-8.0 SP GRAVITY (test code = 6767604988) 1.003-1.030 GLU U QUAL (test code = 0179170788) Normal Normal BLOOD (test code = 0683133215) 3+ Negative A KETONES (test code = 7218476430) 20 mg/dL Negative A PROTEIN (test code = 2887-8) Negative Negative UROBILIN (test code = 6842623380) Normal Normal BILIRUBIN (test code = 5227000475) Negative Negative NITRITE (test code = 4801221664) Negative Negative LEUK ERICA (test code = 9611212426) Negative Negative RBC/HPF (test code = 3432228801) See_Comment H [Automated Affresola ge] The system which generated this result transmitted reference range: 0 - 3 HPF. The reference range was not used to interpret this result as normal/abnormal. WBC/HPF (test code = 4268364827) See_Comment H [Automated messa ge] The system which generated this result transmitted reference range: 0 - 5 HPF. The reference range was not used to interpret this result as normal/abnormal. BACTERIA (test code = 4513351355) Moderate Negative A MUCOUS (test code = 3203391257) Slight Negative LPF A SQ EPITH (test code = 7301937814) HPF Lab Interpretation (test code = 81119-4) [facility] 23:00:34* Test Item Value Reference Range Interpretation Comme nts ALCOHOL (test code = 9688222613) <10 mg/dL MOUNIKA (test code = MOUNIKA) <10 Mbdqfpvg59-236 Toxic>100 Depression of SHINGLES ROOFER HELPER>[address] [facility]2021-09-06 23:00:34* Test Item Value Reference Range Interpretation Comme nts ALCOHOL (test code = 0591387814) <10 mg/dL MOUNIKA (test code = MOUNIKA) <10 Fmskzkry50-612 Toxic>100 Depression of SHINGLES ROOFER HELPER>400 [facility] [id number] 22:42:01 * Test Item Value Reference Range Interpretation Comme nts TSH (test code = 0780995981) See_Comment [Automated messa ge] The system which generated this result transmitted reference range: 0.45 - 4.70 mIU/L. The reference range was not used to interpret this result as normal/abnormal. Lab Interpretation (test code = 52064-0) Normal [facility] [id number] 22:42:01 * Test Item Value Reference Range Interpretation Comme nts TSH (test code = 3659285085) See_Comment [Automated messa ge] The system which generated this result transmitted reference range: 0.45 - 4.70 mIU/L. The reference range was not used to interpret this result as normal/abnormal. Lab Interpretation (test code = 01851-0) Normal [place] [id number] 22:28:43* Test Item Value Reference Range Interpretation Comme nts FREE T4 (test code = 4059081672) See_Comment [Automated messa ge] The system which generated this result transmitted reference range: 0.78 - 2.20 ng/dL:. The reference range was not used to interpret this result as normal/abnormal. Lab Interpretation (test code = 16163-2) Normal [place] [id number] 22:28:43* Test Item Value Reference Range Interpretation Comme nts FREE T4 (test code = 8684697263) See_Comment [Automated messa ge] The system which generated this result transmitted reference range: 0.78 - 2.20 ng/dL:. The reference range was not used to interpret this result as normal/abnormal. Lab Interpretation (test code = 84075-2) Normal [facility] [id number] 22:28:00* Test Item Value Reference Range Interpretation Comme nts POCT PREG (test code = 1605) negative On board controls acceptable with C Line (test code = 3574) present POCT PREG LOT # (test code = 3575) [id number] POCT PREG TEST DATE ( test code = 3576) Lab Interpretation (test cod e = 39820-8) Normal [facility] [id number] 22:28:00* Test Item Value Reference Range Interpretation Comme nts POCT PREG (test code = 1605) negative On board controls acceptable with C Line (test code = 3574) present POCT PREG LOT # (test code = 3575) [id number] POCT PREG TEST DATE ( test code = 3576) Lab Interpretation (test cod e = 43751-5) [facility] [id number] 22:23:40* Test Item Value Reference Range Interpretation Comments TROPONIN I (test code = 7850437517) <0.012 See_Comment [Automated message] The system which generated this result transmitted reference range: <=0.034 ng/mL. The reference range was not used to interpret this result as normal/abnormal. MOUNIKA (test code = MOUNIKA) Reference (Normal) Range (defined by the 99th percentile reference [...] to patient's use of biotin. Lab Interpretation (test code = 84335-0) [facility] [id number] 22:23:40* Test Item Value Reference Range Interpretation Comments TROPONIN I (test code = 6614418478) <0.012 See_Comment [Automated message] The system which generated this result transmitted reference range: <=0.034 ng/mL. The reference range was not used to interpret this result as normal/abnormal. MOUNIKA (test code = MOUNIKA) Reference (Normal) Range (defined by the 99th percentile reference [...] to patient's use of biotin. Lab Interpretation (test code = 92257-4) Normal [facility] [id number] 22:20:42* Test Item Value Reference Range Interpretation Comme nts NT-proBNP (test code = 8143421062) 71 pg/mL See_Comment [Automated message] The system which generated this result transmitted reference range: <=125. The reference range was not used to interpret this result as normal/abnormal. MOUNIKA (test code = MOUNIKA) Biotin has been reported to cause a negative bias, interpret results relative to patient's use of biotin. Lab Interpretation (test code = 08881-8) Normal [facility] [id number] 22:20:42* Test Item Value Reference Range Interpretation Comme nts NT-proBNP (test code = 8128795591) 71 pg/mL See_Comment [Automated message] The system which generated this result transmitted reference range: <=125. The reference range was not used to interpret this result as normal/abnormal. MOUNIKA (test code = MOUNIKA) Biotin has been reported to cause a negative bias, interpret results relative to patient's use of biotin. Lab Interpretation (test code = 65703-2) Normal [facility] METABOLIC PANEL (08532)2021-02-26 22:20:16* Test Item Value Reference Range Interpretation Comme nts NA (test code = 5187226310) 139 mmol/L 135-145 K (test code = 2388542598) 3.8 mmol/L 3.5-5.0 CL (test code = 4392729992) 102 mmol/L 98-108 CO2 TOTAL (test code = 9100126926) 28 mmol/L 23-31 AGAP (test code = 5159855257) 2-16 BUN (test code = 9394681568) 11 mg/dL 7-23 GLUCOSE (test code = 7324093220) 93 mg/dL 70-110 CREATININE (test code = 5660716273) 0.63 mg/dL 0.50-1.04 TOTAL BILI (test code = 1405992415) 0.5 mg/dL 0.1-1.1 CALCIUM (test code = 2577566409) 9.6 mg/dL 8.6-10.6 T PROTEIN (test code = 2750940392) 8.8 g/dL 6.3-8.2 H ALBUMIN (test code = 2477835844) 4.7 g/dL 3.5-5.0 ALK PHOS (test code = 4753769462) 84 U/L 34-122 ALTv (test code = 1742-6) 20 U/L 5-35 AST(SGOT) (test code = 5133666310) 26 U/L 13-40 eGFR (test code = 7071764999) mL/min/1.73m2 MOUNIKA (test code = MOUNIKA) Association of [...] or abnormalities in imaging tests). Lab Interpretation (test code = 17126-3) Abnormal [facility]. METABOLIC PANEL (35447)2021-02-26 22:20:16* Test Item Value Reference Range Interpretation Comme nts NA (test code = 8878961230) 139 mmol/L 135-145 K (test code = 3244211033) 3.8 mmol/L 3.5-5.0 CL (test code = 5911367489) 102 mmol/L 98-108 CO2 TOTAL (test code = 8083934910) 28 mmol/L 23-31 AGAP (test code = 5644321549) 2-16 BUN (test code = 8426557990) 11 mg/dL 7-23 GLUCOSE (test code = 1145410370) 93 mg/dL 70-110 CREATININE (test code = 2375615972) 0.63 mg/dL 0.50-1.04 TOTAL BILI (test code = 0334314535) 0.5 mg/dL 0.1-1.1 CALCIUM (test code = 9174290767) 9.6 mg/dL 8.6-10.6 T PROTEIN (test code = 2087507889) 8.8 g/dL 6.3-8.2 H ALBUMIN (test code = 8050398302) 4.7 g/dL 3.5-5.0 ALK PHOS (test code = 5761815462) 84 U/L 34-122 ALTv (test code = 1742-6) 20 U/L 5-35 AST(SGOT) (test code = 0484925700) 26 U/L 13-40 eGFR (test code = 6905725814) mL/min/1.73m2 MOUNIKA (test code = MOUNIKA) Association of [...] or abnormalities in imaging tests). Lab Interpretation (test code = 12410-7) [facility] NOW RAPID TESTING)2021-02-26 22:14:21* Test Item Value Reference Range Interpretation Comme nts SARS-CoV-2 Rapid ID NOW (test code = 68143-3) Not Detected Not Detected MOUNIKA (test code = MOUNIKA) ID NOW COVID-19 As say is an isothermal nucleic acid amplification test intended for the qualitative detection of nucleic acid from SARS-CoV-2 viral RNA in nasopharyngeal (GENERATION TECHNICIAN) specimens. It is used under Emergency Use [...] patient testing if clinically indicated. Lab Interpretation (test code = 96987-8) [facility] NOW RAPID TESTING)2021-02-26 22:14:21* Test Item Value Reference Range Interpretation Comme nts SARS-CoV-2 Rapid ID NOW (test code = 59873-5) Not Detected Not Detected MOUNIKA (test code = MOUNIKA) ID NOW COVID-19 As say is an isothermal nucleic acid amplification test intended for the qualitative detection of nucleic acid from SARS-CoV-2 viral RNA in nasopharyngeal (GENERATION TECHNICIAN) specimens. It is used under Emergency Use [...] patient testing if clinically indicated. Lab Interpretation (test code = 19101-4) Normal [facility] Notes Date/Time Note Provider Source 2023-08-09 14:09:42 Problem: Falls, Risk of Goal: Absence of falls Outcome: Resolved Problem: Discharge Planning - Goal: Adequate for discharge Outcome: Resolved Goal: Mood stable Outcome: Resolved Problem: Pain Goal: Control of pain at or below patient's documented comfort goal Outcome: Resolved Goal: Reduction in pain sensation Outcome: Resolved IN Osuna RN [facility] 2023-08-09 05:52:30 Problem: Falls, Risk of Goal: Absence of falls Outcome: Progressing as expected Problem: Discharge Planning - Goal: Adequate for discharge Outcome: Progressing as expected Goal: Mood stable Outcome: Progressing as expected Problem: Pain Goal: Control of pain at or below patient's documented comfort goal Outcome: Progressing as expected Goal: Reduction in pain sensation Outcome: Progressing as expected HOIST OPERATOR Hemalatha Burton RN [facility] 2023-08-08 12:20:42 Problem: Intrapartum process (including labor pain) Goal: Able to cope with pain Outcome: Resolved Goal: Adequate to move to next level of care Outcome: Resolved Goal: Reduction in pain sensation Outcome: Resolved Problem: Falls, Risk of Goal: Absence of falls Outcome: Progressing as expected Problem: Discharge Planning - Goal: Adequate for discharge Outcome: Progressing as expected Goal: Mood stable Outcome: Progressing as expected Problem: Pain Goal: Control of pain at or below patient's documented comfort goal Outcome: Progressing as expected Goal: Reduction in pain sensation Outcome: Progressing as expected IN Luis RN [facility] 2023-08-08 09:59:05 Delivery Date: 08/08/2023 Delivery Time: 8:56 AM DELIVERY BY SECTION Date of Service: : 08/08/2023 at 8:56 AM Admitted for: ERCS, Repeat Lower uterine transverse section with no extension, no BTL, Pfannenstiel, Closed with suture, EBL 700 cc, No complications, Findings: left rectus adhered to left lower anterior uterus and fascia; omental adhesion to right lower uterus and previous hysterotomy; normal fallopian tubes and ovaries Delivery Summary [place] Sex: male Weight: 2765 g 1 Minute 5 Minute 10 Minute Totals: 8 9 Primary Indication: The patient was taken to the operating room for a repeat section due to: Elective Repeat Section at 37w1d weeks. Procedures: Repeat Lower uterine transverse section with no extension Specimens Removed: Placenta Clinical Trials: none Surgeon: Gabino Miller MD Chili Pepper Grinder Surgeon: Thea Jolly MD OB Faculty: Sidney Elizondo MD Report: Prophylactic antibiotic, Ancef was given before patient was taken to OR. After arrival to the operating room patient was placed in the supine position with left lateral tilt after administration of spinal anesthesia. Laparotomy A pfannenstiel incision was made through the anterior abdominal wall with #10 scalpel. The incision was extended sharply with the #10 scalpel through the subcutaneous tissue to the level of fascia. The fascia was entered sharply with a #10 scalpel (Pfannenstiel) in the midline and extended in semi-elliptical fashion with Felton scissor. The underlying muscles were dissected off the overlying fascia by grasping the superior aspect of fascia with two andres clamps and blunt dissection was used along the midline. The fascia was further from rectus muscle with Felton scissor and/or cautery. In similar fashion, the lower aspect of fascia was also grsaped with two Andres clamps and both blunt and sharp dissection was used to separate fascia from rectus muscle. The rectus muscles were in the midline bluntly with Brenda hemostat. The peritoneum was then entered sharply by grasping and tenting the peritoneum with two hemostats and enter with Metzenbaum scissor. The peritoneal incision was then extended superiorly and inferiorly under direct visualization with care being taken to avoid bladder and bowel. The left rectus was adhered to the fascia and left lower uterine segment. Adhesiolysis was performed with electrocautery. Omentum was also found to be adhered to the right lower uterine segment along previous hysterotomy. Adhesions were taken down with electrocautery. The peritoneal incision was enlarged bluntly by lateral traction from the surgeon's and certified surgical tech/first assistant's hand. Delivery A bladder flap was developed by grasping with Slovak forcep and enter with Metzenbaun scissor. Then sharp and blunt dissection with Metzenbaum scissor and fingers were performed. A low transverse hysterotomy was made then with #10 scalpel and extended caudad and cephalad with fingers in a low transverse fashion with Manu Blackmon technique with care being taken to avoid injury to the fetus. The amniotic (membranes) were then entered bluntly with Allis clamp, and the amniotic fluid was noted to be clear . The head was delivered manually without aid of vaginal hand. The head was flexed and delivered through the hysterotomy incision in a non-traumatic fashion with aid of fundal pressure applied by the permit review assistant surgeon . The body was delivered with traction on the head along with fundal pressure. After delivery of body-bulb suction was performed from oropharynx and nostril with removal of clear amniotic fluid. Fetus was delivered in cephalic presentation. With delivery the baby, no extension was noted.Delayed cord clamping was performed for 30-60 seconds. Placenta was delivered spontaneously with steady traction on cord and manual separation of placenta from uterine wall. Closure Uterine cavity was cleaned after placental delivery with lap sponge x 2. The hysterotomy was closed in one layer with stitches using 0 chromic with continuous locking stitches. Hemostasis was achieved as needed with electrocautery. The ovaries/tubes/uterine surface were evaluated. They were found to be normal. Fascia was closed with running stitches using 0 PDS. Hemostasis was checked for and found to be adequate. The subcutaneous tissue was irrigated and hemostasis was achieved where needed with electrocautery. Subcutaneous layer was closed with 2-0 vicryl. The skin was then closed with subcutaneous stitches using 3-0 monocryl sutures. The incision was cleaned and covered with a compression bandage and the procedure considered to be complete at this time. Intraoperative Complications: none EBL: 700 Uterotonics: none Disposition: The patient tolerated the procedure well. She was recovered in Obstetric PACU for close monitoring in stable condition, with a contracted uterus and no transvaginal bleeding. The infant was sent to [facility]. A segment of the cord was obtained for umbilical cord gases. Cord blood gas was not available at time of operative note entered. Please see [facility] for update. The placenta was not sent to pathology. Gabino Miller, PGY2 08/08/23 10:04 AM HOIST OPERATOR Associated attestation - Sidney Elizondo MD - 08/08/2023 1:12 PM BOAT HOIST OPERATOR Present for delivery. OG-OBSTETRICS & GYNECOLOGY [facility] 2023-08-08 07:18:17 Problem: Intrapartum process (including labor pain) Goal: Able to cope with pain Outcome: Progressing as expected Goal: Adequate to move to next level of care Outcome: Progressing as expected Goal: Reduction in pain sensation Outcome: Progressing as expected Problem: Falls, Risk of Goal: Absence of falls Outcome: Progressing as expected HOIST OPERATOR Yola Garnett RN [facility] 2023-08-08 05:38:48 Problem: Intrapartum process (including labor pain) Goal: Able to cope with pain Outcome: Progressing as expected Goal: Adequate to move to next level of care Outcome: Progressing as expected Goal: Reduction in pain sensation Outcome: Progressing as expected HOIST OPERATOR [facility] 2023-08-04 15:29:18 Noted. HOIST OPERATOR Annamarie Eric LVN [facility] 2023-08-04 15:26:32 Called patient and scheduled appointment for 08/05/23 IN Schwartz [facility] 2023-08-04 15:05:17 Taylor Monterroso is a 23 year old female Patient is calling requesting to speak with clinic staff to reschedule Non Stress Test. Please contact when available IN Graham [facility] 2023-07-02 09:22:06 Pt was seen in ED for decreased movement and contractions yesterday at [facility]. Pt was given fluids and contractions resolved. Pt denies any contractions today, no leakage of fluid or vaginal bleeding. Pt states she does Kick counts in the evening when baby is more active. Pt complaining of Sore throat. Pt denies fever or respiratory symptoms. Reviewed safe medication list. Pt scheduled for tomorrow for HR PNV and USG. Pt to keep appointment as scheduled. Strict ED warnings given. Pt verbalized understanding. GENET MARCOS RN 07/02/2023 9:25 AM IN Marcos RN [facility] 2023-07-02 08:53:53 Taylor Monterroso is a 23 year old female Pt was in the ER yesterday due to decreased movement and is calling to see if she should be seen today? Pt states she dilated 1cm and is having some slight contractions. HOIST OPERATOR Jorge Luis Armstrong [facility] 2023-07-01 22:55:28 Pt arrived ambulatory with complaints of sore throat x1 day and decreased movement since 8pm. approx 32 weeks Denies fever. Report to KORI Freed Pt transported via to L&D with ED RN HOIST OPERATOR Leeanna Rincon RN [facility] 2023-06-24 12:22:39 See previous note. IN Schwartz [facility] 2023-06-24 12:21:37 Spoke with patient and she will keep appointment for 8:45 am. [facility] 2023-06-24 11:42:43 Pt asking if she can be r/s for nst/hr pn appt. Please call [phone] (home) [place] [facility] 2023-06-18 10:28:24 Called pharmacy, advised PA approved. Per pharmacy insurance only allowing BID for strips. Resubmitted PA for quantity increase. PA approved. Notified pharmacy and pt. Verbalized understanding. Samantha Case RN 06/18/23 10:29 AM HOIST OPERATOR Samantha Case RN [facility] 2023-06-18 07:45:50 Submitted Pa Via cover my meds. Outcome Approved today PA Case: [id number], Status: Approved, Coverage Starts on: 06/18/2023 12:00:00 AM, Coverage Ends on: 06/17/2024 12:00:00 AM. Will contact pharmacy to run RX again when open. Samantha Case RN 06/18/23 7:46 AM HOIST OPERATOR [facility] 2023-06-17 11:21:37 Pt reporting she is unable to get blood sugar diagnostic (FREESTYLE LITE STRIPS) strip From pharm, they have stated they need approval from provider [facility] [id number] [address] HOIST OPERATOR Chase Case [facility] 2023-01-30 13:22:55 Formatting of this n ote might be different from the original. Called pt, reports asymptomatic. Verbalized understanding. Samantha Case RN 01/30/23 1:23 PM Samantha Case RN [facility] 2023-01-30 13:22:09 Formatting of this n ote might be different from the original. Patient diagnosed with GDM per provider. Advised patient that blood glucose monitor and supplies have been sent to her pharmacy on file. Advised patient that she will need to come in for a diabetic teaching as a nurse visit with supplies from pharmacy. Patient verbalizes understanding. Pt scheduled. Samantha Case RN 01/30/23 1:22 PM Samantha Case RN [facility] 2023-01-30 13:05:28 Formatting of this n ote might be different from the original. Pt failed 3hr gtt, please advise patient she is PDM, please advise her she should pick up worker her supplies from the pharmacy once she has her medicaid approved, please have her make a nurse appt for diabetic education HARI Chowdhury 01/30/2023 1:06 PM [facility] 2023-01-30 12:56:13 Formatting of this n ote might be different from the original. BV noted on pap, if she is symptomatic meds can be sent in for her, if not we can treat her 2nd trimester HARI Chowdhury 01/30/2023 12:57 PM [facility] 2023 13:35:09 Formatting of this n ote might be different from the original. Patient informed of results and need for 3 hr gtt. Lab appt made, informed to be fasting, verbalized understanding. Annamarie Eric LVN [facility] 2023 13:21:53 Formatting of this n ote might be different from the original. Please notify the patient she failed her 1 hr gtt. She needs to come in for a fasting 3hr gtt HARI Chowdhury 2023 1:22 PM T [facility]"
--- NOTE | 2025-02-03 18:30 | RAD REPORT ---
EXAM: Right upper quadrant ultrasound. CLINICAL HISTORY: ABD PAIN COMPARISON: None. FINDINGS: Gallbladder: Normal. Bile ducts: No intrahepatic or extrahepatic biliary dilatation. Common bile duct measures 2 mm. Limited imaging of the liver shows no concerning finding. IMPRESSION: Unremarkable exam.
[2025-02-03 18:38] LABS: Absolute Lymphocytes (CBC) 2.4 K/uL (0.7-4.9); Hematocrit 42.0 % (36.0-45.0); Hemoglobin 13.7 g/dL (12.0-15.0); MCH 28.9 pg (27.0-35.0); MCHC 32.6 g/dL (32.0-36.0); MCV 88.8 fL (80-100); MPV 7.0 fL (7.6-11.3); Nucleated RBC Absolute Count 0.0 (0-0); Nucleated Red Blood Cells % 0.1 % (0-0); RBC Red Blood Cell Count 4.72 M/uL (3.86-4.86); White Blood Count 14.30 thou/uL (4.3-10.9)
[2025-02-03 18:43] LABS: Sqamous Epithelial <5 /HPF (None Seen); Urine Culture Reflex Order NOT NEEDED; Urine Microscopic Reflex YN ORDER UMIC
[2025-02-03] MEDS ORDERED: MORPHINE 4 MG/ML SYR ONE (19:26)
[2025-02-03] MEDS ORDERED: ONDANSETRON 4 MG/2 ML VIAL ONE (19:26)
[2025-02-03] MEDS ORDERED: MAGNES/ALUMIN/SIMET 30ML UCUP ONE (19:26)
[2025-02-03] MEDS ORDERED: LIDOCAINE VISCOUS 2% 10ML ORAL SOLN ONE (19:27)
[2025-02-03] MEDS ORDERED: NA CHLORIDE 0.9% 1,000 ML ONE (19:27)
[2025-02-03 19:34] LABS: AST/SGOT 15.0 U/L (15-37); Anion Gap 8.4 mEq/L (5.0-15.0); BUN Blood Urea Nitrogen 11.0 mg/dL (7-18); Glucose Level 92.0 mg/dL (74-106); Potassium 3.4 mEq/L (3.5-5.1)
[2025-02-03 19:35] LABS: ALT/SGPT 16.0 U/L (13-56); Albumin 3.6 g/dL (3.4-5.0); Albumin/Globulin Ratio 0.9 (1.1-1.8); Alkaline Phosphatase 85.0 U/L (45-117); Globulin 4.1 g/dL (2.3-3.5); Lipase 21.0 U/L (13-75)
--- NOTE | 2025-02-03 20:06 | RAD REPORT ---
EXAMINATION: CT ABDOMEN AND PELVIS WITH CONTRAST CLINICAL INDICATION: ABD PAIN TECHNIQUE: CT abdomen and pelvis was performed, after the administration of IV contrast, as per [facility] protocol. Axial, sagittal and coronal reconstructions were obtained. One or more of the following dose reduction techniques were used: Automated exposure control, adjustment of the mA and k V according to patient size, and iterative reconstruction. Unless otherwise specified, incidental findings do not require dedicated imaging follow-up. COMPARISON: 05/03/2016 FINDINGS: LOWER CHEST: The visualized lung bases are clear. LIVER: Normal in size and contour. No focal lesion. Grossly unremarkable gallbladder. SPLEEN: Normal size. No focal lesion. PANCREAS: No mass, ductal dilation, or corin-pancreatic fluid. ADRENALS: Normal; no mass. KIDNEYS: Normal size and contour. No hydronephrosis. GASTROINTESTINAL TRACT: No evidence of free air, significant intra-abdominal free fluid, bowel obstru ction or abscess. APPENDIX: Normal appendix. LYMPH NODES: No lymphadenopathy. MUSCULOSKELETAL: No acute or suspicious osseous abnormality. ADDITIONAL FINDINGS: None. IMPRESSION: No acute or concerning abnormalities seen in the abdomen or pelvis.
--- NOTE | 2025-02-03 20:08 | EDPHYS ---
Physician Documentation [facility] Name: Taylor Monterroso Age: 25 yrs Sex: Female : 2000 Arrival Date: 02/03/2025 Time: 17:29 Bed 25 Private MD: ED Physician Oleg Mercado HPI: 02/03 17:53 This 25 yrs old Female presents to ER via Ambulatory with complaints of dr5 Abdominal Pain, Vomiting. 17:53 The patient presents with abdominal pain in the epigastric area. Onset: The dr5 symptoms/episode began/occurred acutely. Patient is a 25-year-old female with no past medical history coming in with upper abdominal pain with nausea and vomiting this morning. Patient reports 5-6 episodes of vomiting throughout the day. Patient took Tylenol prior to arrival for pain.. Patient denies any previous surgery history. 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 - Infectious Disease History:: Denies. - Social history:: Smoking status: Patient denies any tobacco usage or history of. ROS: 17:54 Constitutional: as per hpi dr5 Exam: 17:54 Constitutional: This is a well developed, well nourished patient who is awake, alert, dr5 and in no acute distress. Head/Face: Normocephalic, atraumatic. Eyes: Pupils equal round and reactive to light, extra-ocular motions intact. Lids and lashes normal. Conjunctiva and sclera are non-icteric and not injected. Cornea within normal limits. Periorbital areas with no swelling, redness, or edema. Chest/axilla: Normal chest wall appearance and motion. Nontender with no deformity. No lesions are appreciated. Cardiovascular: Regular rate and rhythm with a normal S1 and S2. Normal PMI, no JVD. No pulse deficits. Respiratory: Lungs have equal breath sounds bilaterally, clear to auscultation. No rales, rhonchi or wheezes noted. No increased work of breathing, no retractions or nasal flaring. Back: No spinal tenderness. No costovertebral tenderness. Full range of motion. Skin: Warm, dry with normal turgor. Normal color with no rashes, no lesions, and no evidence of cellulitis. MS/ Extremity: Pulses equal, no cyanosis. Neurovascular intact. Full, normal range of motion. Neuro: Awake and alert, GCS 15, oriented to person, place, time, and situation. Cranial nerves II-XII grossly intact. Motor strength 5/5 in all extremities. Sensory grossly intact. Cerebellar exam normal. Normal gait. 17:54 Abdomen/GI: Inspection: abdomen appears normal, obese Bowel sounds: normal, Palpation: moderate abdominal tenderness, in the epigastric area, Vital Signs: 17:45 BP 136 / 89; Pulse 70; Resp 16; Temp 98.4; Pulse Ox 100% ; Weight 88.45 kg; Height 4 db ft. 11 in. ; 19:40 BP 132 / 82; Pulse 88; Resp 19; Temp 97.5(O); Pulse Ox 100% on R/A; Weight 87.09 kg; tb4 Height 4 ft. 11 in. ; Pain 4/10; 20:43 BP 129 / 75; Pulse 76; Resp 18; Pulse Ox 100% on R/A; Pain 2/10; tb4 21:22 BP 138 / 81; Pulse 83; Resp 18; Pulse Ox 100% on R/A; Pain 1/10; tb4 19:40 Body Mass Index 38.78 (87.09 kg, 149.86 cm) tb4 19:40 Pain Scale: Adult tb4 20:43 Pain Scale: Adult tb4 21:22 Pain Scale: Adult tb4 MDM: 17:35 Medical Screening Exam initiated dr5 19:42 Differential diagnosis: cholecystitis, Cholelithiasis, gastritis, urinary tract dr5 infection. Data reviewed: vital signs, nurses notes, lab test result(s), amylase and lipase, CBC, white blood cell count, hemoglobin, hematocrit, platelets, electrolytes, sodium, potassium, chloride, serum bicarbonate, BUN, creatinine, serum glucose, urinalysis, radiologic studies, ultrasound. Consideration of Admission/Observation Escalation of care including admission/observation considered. Admission considered if patient found to have cholecystitis. I considered the following discharge prescriptions or medication management in the emergency department I discussed and recommended Over The Counter medications, Medications were administered in the Emergency Department. See MAR. Historians other than the Patient: Spouse/Significant Other: Significant other at bedside. Care significantly affected by the following Social Determinants of Health: Poor access to healthcare and/or lack of insurance, Poor access to transportation, Problems related to employment. Counseling: I had a detailed discussion with the patient and/or guardian regarding the historical points, exam findings, and any diagnostic results supporting the discharge/admit diagnosis, the presence of at least one elevated blood pressure reading (>120/80) during this emergency department visit, lab results, radiology results, the need for outpatient follow up, for definitive care, a family practitioner. Medication response: GI cocktail, morphine, Zofran, normal saline. 20:07 Response to treatment: the patient's symptoms have markedly improved after treatment. dr5 Special discussion: Based on the patient's Hx, exam, and Dx evaluation, there is no indication for emergent surgery or inpatient Tx. It is understood by the patient/guardian that if the Sx's persist or worsen they need to return immediately for re-evaluation. I have referred the patient to see his PCP for further evaluation of high blood pressure. I discussed with the patient/guardian in detail that at this point there is no indication for admission to the hospital. It is understood, however, that if the symptoms persist or worsen the patient needs to return immediately for re-evaluation. Based on the history and exam findings, there is no indication for further emergent testing or inpatient evaluation. I discussed with the patient/guardian the need to see the gas treater for further evaluation of the symptoms. ED course: Will have patient follow-up with her GI doctor. CT abdomen pelvis reviewed with no acute abnormalities. Will have patient follow-up with GI doctor. Will start patient on Protonix for gastritis. All questions answered. Strict ER precautions given. 02/03 17:53 Order name: CBC with Diff; Complete Time: 18:41 dr5 02/03 17:53 Order name: CMP; Complete Time: 19:36 dr5 02/03 17:53 Order name: Lipase; Complete Time: 19:36 dr5 02/03 17:53 Order name: UA Rfx Guero Cult if indicated; Complete Time: 18:58 dr5 02/03 17:53 Order name: Test, Urine; Complete Time: 18:58 dr5 02/03 17:53 Order name: US Abdomen Limited: RUQ please to r/o reyna; Complete Time: 18:30 [facility] 02/03 18:41 Order name: CT Abd/Pelvis - IV Contrast Only; Complete Time: 20:07 dr5 02/03 17:53 Order name: IV Saline Lock; Complete Time: 18:34 dr5 02/03 17:53 Order name: Labs collected and sent; Complete Time: 18:34 dr5 Administered Medications: 19:57 Drug: Ondansetron IVP 4 mg IVP once; over 2 minutes Route: IVP; Site: right antecubital;tb4 20:42 Follow up: Response: No adverse reaction; Pain is decreased; Nausea is decreased tb4 19:57 Drug: morphine IVP or IV 4 mg IVP once over 4 mins Route: IVP; Infused Over: 4 mins; tb4 Site: right antecubital; 20:43 Follow up: Response: No adverse reaction; Pain is decreased; RASS: Alert and Calm (0) tb4 19:57 Drug: NS 0.9% IV 1000 ml IV at 1 bolus Per protocol; to be given as a bolus over 60 tb4 minutes Route: IV; Rate: 1 bolus; Site: right antecubital; 20:43 Follow up: Response: No adverse reaction; IV Status: Completed infusion tb4 19:57 Drug: GI Cocktail without - (Maalox PO 30 ml, Lidocaine Mucous Membrane 2 % 15 tb4 ml) PO once Route: PO; 20:41 Follow up: Response: No adverse reaction; Pain is decreased tb4 Disposition: 19:10 I was immediately available on-site in the Emergency Department for consultation in the ms3 care of the patient. Disposition Summary: 02/03/25 20:07 Discharge Ordered Notes: Location: Home dr5 Condition: Stable dr5 Diagnosis - Acute gastritis dr5 Followup: dr5 - With: Emergency Department - When: As needed - Reason: Worsening of condition Followup: dr5 - With: Luis Miguel Munroe MD - When: 1 week - Reason: Recheck today's complaints, Continuance of care, Re-evaluation by your physician Discharge Instructions: - Discharge Summary Sheet dr5 - Food Choices for Gastroesophageal Reflux Disease, Adult dr5 Forms: - Work release form dr5 - Medication Reconciliation Form dr5 - Patient Portal Instructions dr5 - Leadership Thank You Letter dr5 Prescriptions: - Protonix 40 mg Oral Tablet - take 1 tablet ORAL route once daily; 30 tablet; Refills: 0, Product Selection dr5 Permitted - Zofran 4 mg Oral Tablet - take 1 tablet ORAL route every 12 hours As needed; 20 tablet; Refills: 0, dr5 Product Selection Permitted Signatures: Dispatcher [employer] EDMS Oleg Mercado, DO ms3 Negra Barahona, RN RN db Mega Arredondo, STAFF DEVELOPMENT COORDINATOR RN-C STAFF DEVELOPMENT COORDINATOR RN-Cdr5 Yarelis Rodgers, RN RN tb4 Corrections: (The following items were deleted from the chart) 17: 17:53 CBC+H.LAB.BRZ ordered. EDMS EDMS 17 17:53 COMPREHENSIVE METABOLIC PANEL+C.LAB.BRZ ordered. EDMS EDMS : 17:53 LIPASE+C.LAB.BRZ ordered. EDMS EDMS : 17:53 UA Rfx Guero Cult if indicated+U.LAB.BRZ ordered. EDMS EDMS 54 17:53 Test, Urine+UC.LAB.BRZ ordered. EDMS EDMS
--- NOTE | 2025-02-03 20:08 | ER ---
Nurse's Notes [facility] Name: Taylor Monterroso Age: 25 yrs Sex: Female : 2000 Arrival Date: 02/03/2025 Time: 17:29 Bed 25 Private MD: Diagnosis: Acute gastritis Presentation: 02/03 17:45 Chief complaint: Patient states: UPPER MIDDLE ABD PAIN SINCE THIS AM. STATES TOOK db TYLENOL AT 0810 TODAY. WITH N/V. DENIES DIARRHEA. Coronavirus screen: Client denies travel out of the [place] in the last 14 days. At this time, the client does not indicate any symptoms associated with coronavirus-19. Ebola Screen: Patient negative for fever greater than or equal to 101.5 degrees Fahrenheit, and additional compatible Ebola Virus Disease symptoms Patient denies exposure to infectious person. Patient denies travel to an Ebola-affected area in the 21 days before illness onset. No symptoms or risks identified at this time. Initial Sepsis Screen: Does the patient meet any 2 criteria? No. Patient's initial sepsis screen is negative. Does the patient have a suspected source of infection? No. Patient's initial sepsis screen is negative. Risk Assessment: Do you want to hurt yourself or someone else? Patient reports no desire to harm self or others. Onset of symptoms was February 03, 2025. 17:45 Method Of Arrival: Ambulatory db 17:45 Acuity: RITA 3 db Triage Assessment: 17:46 General: Appears in no apparent distress. comfortable, Behavior is calm, cooperative. db Pain: Complains of pain in abdomen. Neuro: Level of Consciousness is awake, alert, obeys commands, Oriented to person, place, time, situation. Respiratory: Airway is patent Respiratory effort is even, unlabored, Respiratory pattern is regular, symmetrical. GI: Reports upper abdominal pain, nausea, vomiting. 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 - Infectious Disease History:: Denies. - Social history:: Smoking status: Patient denies any tobacco usage or history of. Screenin:[address] [facility] ED Fall Risk Assessment (Adult) History of falling in the last 3 months, tb4 including since admission No falls in past 3 months (0 pts) Confusion or Disorientation No (0 pts) Intoxicated or Sedated No (0 pts) Impaired Gait No (0 pts) Mobility Assist Device Used No (0 pt) Altered Elimination No (0 pt) Score/Fall Risk Level 0 - 2 = Low Risk Oriented to surroundings, Maintained a safe environment. Abuse screen: Denies threats or abuse. Nutritional screening: No deficits noted. Tuberculosis screening: No symptoms or risk factors identified. Assessment: 19:37 Reassessment: See triage note. General: Appears in no apparent distress. comfortable, tb4 Behavior is calm, cooperative. Pain: Complains of pain in epigastric area Pain does not radiate. Pain currently is 4 out of 10 on a pain scale. at worst was 10 out of 10 on a pain scale. Quality of pain is described as sharp, shooting, Pain began suddenly, 2 hours ago. Is continuous, Alleviated by nothing. Neuro: No deficits noted. Level of Consciousness is awake, alert, obeys commands, Oriented to person, place, time, situation, Moves all extremities. Full function Gait is steady, Speech is normal, Facial symmetry appears normal. Respiratory: Airway is patent Trachea midline Respiratory effort is even, unlabored, Respiratory pattern is regular, symmetrical. GI: Bowel sounds present X 4 quads. Abd is soft X 4 quads Abdomen is tender to palpation. : No deficits noted. No signs and/or symptoms were reported regarding the genitourinary system. EENT: No signs and/or symptoms were reported regarding the EENT system. Derm: No signs and/or symptoms reported regarding the dermatologic system. Musculoskeletal: No signs and/or symptoms reported regarding the musculoskeletal system. Circulation, motion, and sensation intact. Range of motion: intact in all extremities. Vital Signs: 17:45 BP 136 / 89; Pulse 70; Resp 16; Temp 98.4; Pulse Ox 100% ; Weight 88.45 kg; Height 4 db ft. 11 in. ; 19:40 BP 132 / 82; Pulse 88; Resp 19; Temp 97.5(O); Pulse Ox 100% on R/A; Weight 87.09 kg; tb4 Height 4 ft. 11 in. ; Pain 4/10; 20:43 BP 129 / 75; Pulse 76; Resp 18; Pulse Ox 100% on R/A; Pain 2/10; tb4 21:22 BP 138 / 81; Pulse 83; Resp 18; Pulse Ox 100% on R/A; Pain 1/10; tb4 19:40 Body Mass Index 38.78 (87.09 kg, 149.86 cm) tb4 19:40 Pain Scale: Adult tb4 20:43 Pain Scale: Adult tb4 21:22 Pain Scale: Adult tb4 ED Course: 17:33 Patient arrived in ED. al6 17:34 Mega Arredondo FNP-C is PHCP. dr5 17:34 Oleg Mercado DO is Attending Physician. dr5 17:46 Triage completed. db 17:47 Arm band placed on. db 18:26 US Abdomen Limited: RUQ please to r/o reyna In Process Unspecified. EDMS 18:26 Inserted saline lock: 20 gauge in right antecubital area, using aseptic technique. sa1 Blood collected. Flushed with 10 mL NS. 18:26 Initial lab(s) drawn, by me, sent to lab. Urine collected: clean catch specimen, clear. sa1 18:34 CBC with Diff Sent. sa1 18:34 CMP Sent. sa1 18:34 Lipase Sent. sa1 18:34 Test, Urine Sent. sa1 18:34 UA Rfx Guero Cult if indicated Sent. sa1 19:41 CT Abd/Pelvis - IV Contrast Only In Process Unspecified. EDMS 19:52 Patient has correct armband on for positive identification. Bed in low position. Call tb4 light in reach. Side rails up X 1. Adult w/ patient. Client placed on continuous cardiac and pulse oximetry monitoring. NIBP monitoring applied. Pulse ox on. Door closed. Lights dimmed. 19:52 No provider procedures requiring assistance completed. CT Scan. tb4 20:07 Luis Miguel Munroe MD is Referral Physician. dr5 21:24 Provided Education on: Take medication as prescribed . tb4 21:24 IV discontinued, intact, bleeding controlled, No redness/swelling at site. Pressure tb4 dressing applied. Administered Medications: 19:57 Drug: Ondansetron IVP 4 mg IVP once; over 2 minutes Route: IVP; Site: right antecubital;tb4 20:42 Follow up: Response: No adverse reaction; Pain is decreased; Nausea is decreased tb4 19:57 Drug: morphine IVP or IV 4 mg IVP once over 4 mins Route: IVP; Infused Over: 4 mins; tb4 Site: right antecubital; 20:43 Follow up: Response: No adverse reaction; Pain is decreased; RASS: Alert and Calm (0) tb4 19:57 Drug: NS 0.9% IV 1000 ml IV at 1 bolus Per protocol; to be given as a bolus over 60 tb4 minutes Route: IV; Rate: 1 bolus; Site: right antecubital; 20:43 Follow up: Response: No adverse reaction; IV Status: Completed infusion tb4 19:57 Drug: GI Cocktail without - (Maalox PO 30 ml, Lidocaine Mucous Membrane 2 % 15 tb4 ml) PO once Route: PO; 20:41 Follow up: Response: No adverse reaction; Pain is decreased tb4 Medication: 19:40 VIS not applicable for this client. tb4 Outcome: 20:07 Discharge ordered by . dr5 21:23 Discharged to home ambulatory, with family, tb4 21:23 Condition: stable 21:23 Discharge instructions given to patient, family, Instructed on discharge instructions, follow up and referral plans. Demonstrated understanding of instructions, follow-up care, medications, Prescriptions given X 2, 21:25 Patient left the ED. tb4 Signatures: Dispatcher [employer] Negra Cabezas, RN RN Sultan Fouzia sa1 Mega Arredondo, FIREPERSON-C FIREPERSON-Cdr5 Annalee Warren6 Yarelis Rodgers, RN RN tb4 Corrections: (The following items were deleted from the chart) 17:48 17:45 Chief complaint: Patient states: UPPER MIDDLE ABD PAIN SINCE THIS AM. STATES TOOK db TYLENOL AT 0810 TODAY db
[2025-02-03 22:36] VITALS: O2SAT 100
[2025-02-03 22:37] VITALS: TEMP 97.5
[2025-02-03 22:41] VITALS: BP 138/81
== END 2025-02-03 21:25 | disposition home or self-care (01) ==
LOC: ER 17:29
DX: K29.00 Acute gastritis without bleeding (principal)
CPT/HCPCS: 36415; 74177; 76705; 80053; 81001; 81025; 83690; 85025; 96361; 96374; 96375; 99284; J2405; J7030; Q9967